=== PATIENT | male | born 2000 | race Caucasian/White ===

== ENCOUNTER 2025-04-10 07:03 | Emergency (ER) | payer OTHER, SELFPAY ==
--- OUTSIDE RECORDS SUMMARY | 2021-03-19 10:00 | XMS_ITS | Continuity of Care Document ---
Author Organization [facility] Address [address] [place] [address] Phone Care Team Providers Care Office Assistant Name Role Phone Des TAVAREZ, Manoj Unavailable Unavailable Procedures Procedure Date J&J Covid Administration J&J Covid Vaccination Advance Directives Directive Yes / No Effective Date File Name No Information Encounters Encounter Description Practice Location Reason(s) For Visit Diagnoses Date Provider Providers Copied on Encounter [facility], [address], [place], [id number], [place] tel:[phone] COVID [facility] No Information Des Blackburn. [address], [place], [id number], [place]. tel:[phone] Family History Family Member Type Diagnosis Age At Onset No Information Immunizations Vaccine Date Status Comments [place] COVID administered Source: New Im munization Record Payers Payer name Insurance type Covered republican ID Authoriza tion(s) COVID 19 HRSA Uninsured Test ing & Treatm CI [id number] Self Pay Cap 09 Social History Type Description Quantity Date Captured Comments Alcohol Use Details Unknown Caffeine Use Details Unknown Tobacco Use Status No Information Smoking Status No Information Sex Male Sexual Orientation Straight or heterosexual Gender Identity Male Chief Complaint And Reason For Visit No Information Reason For Referral Reason For Referral No Information History Of Present Illness Encounter Date Complaint History Of Prese nt Illness No Information Functional Status Date Functional Assessmen t No Information Instructions Date Instruction Additional Infor mation No Information Assessments Type Assessment Date No Information Patient Care Teams Name Effective Dates (start - stop) Status Members No Information
[2025-04-10 07:07] VITALS: BP 140/72; PULSE 85; TEMP 36.8; O2SAT 97; BMI 29.6
--- NOTE | 2025-04-10 07:11 | XR_ITS ---
[facility] [place] [id number] Patient Name: SHIRLEY BUENO MRN: [id number] date: 2000 Sex: M Assigned Patient Location: ED.MAIN Current Patient Location: ED.MAIN Accession/Order Number: [id number] Exam Date: 04/10/2025 07:51 Report Date: 04/10/2025 07:52 At the request of: CHANDA HARPER MD Procedure: XR hand RT min 3V RIGHT HAND - 3 views CLINICAL DATA: Hyperextension of the fifth finger yesterday. COMPARISON: None AP, lateral and oblique views were obtained. There is no evidence of fracture or dislocation. There are no significant soft tissue abnormalities. XR/XR hand RT min 3V IMPRESSION: NO ACUTE BONY INJURY. Impression dictated by: Mary Brown M.D. 04/10/2025 7:52 AM Dictation Location: [place] [address] Electronically authenticated by: [id number] Date: 04/10/2025 07:52
--- NOTE | 2025-04-10 07:14 | ED.GENADUL1 ---
HPI HPI - General Adult General Chief complaint: Extremity Injury, Upper Stated complaint: upper extremity injury - [facility] Time Seen by Provider: 04/10/25 07:10 Source: patient Mode of arrival: walk-in History of Present Illness HPI narrative: 25-year-old male presents for pain to his right fifth finger. 24 hours ago at work that finger was hyperextended. The other fingers do not hurt. He points between the M CP and PIP joints to indicate area of most pain. He is right-handed. It hurts more to move it. Related Data Home Medications ?Medication ?Instructions ?Recorded ?Confirmed No Known Home Medications 04/10/25 04/10/25 Allergies Allergy/AdvReac Type Severity Reaction Status Date / Time No Known Drug Allergies Allergy Verified 04/10/25 07:07 Opioid HPI Opioid Management Most Recent Opioid Data: Last Pain Scale 6 Today, 07:12 Review of Systems ROS Narrative A ten point review of systems is negative except as noted above. PFSH PFSH Social History Little interest or pleasure in doing things: not at all Feeling down, depressed, or hopeless: not at all Exam Narrative Exam Narrative: Nurses note and vital signs reviewed and patient is not hypoxic. General: The patient appears well and in no apparent distress. Patient is resting comfortably on cart. Skin: Warm, dry, no pallor noted. There is no rash noted. Head: Normocephalic, atraumatic Eye: Normal conjunctiva, no drainage Ears, Nose, Mouth, and Throat: oral mucosa is moist. Nares patent. Cardiovascular: Regular Rate and Rhythm Respiratory: Patient is in no distress, no accessory muscle use Back: non-tender GI: Soft and nontender Musculoskeletal: The right hand is examined. There is no obvious deformity or swelling or bruising. He has some tenderness in the right fifth finger proximally but all fingers have full range of motion. Neurological: Awake and alert Psychiatric: Cooperative Constitutional Vital Signs, click to edit/add: Last Vital Signs Temp 98.2 F 04/10/25 07:07 Pulse 85 04/10/25 07:07 Resp 16 04/10/25 07:07 BP 140/72 04/10/25 07:07 Pulse Ox 97 04/10/25 07:07 O2 Del Method Room Air 04/10/25 07:07 Course Vital Signs Vital signs: Vital Signs Temperature 98.2 F 04/10/25 07:07 Pulse Rate 85 04/10/25 07:07 Respiratory Rate 16 04/10/25 07:07 Blood Pressure 140/72 04/10/25 07:07 Pulse Oximetry 97 04/10/25 07:07 Oxygen Delivery Method Room Air 04/10/25 07:07 Temperature 98.2 F 04/10/25 07:07 Pulse Rate 85 04/10/25 07:07 Respiratory Rate 16 04/10/25 07:07 Blood Pressure 140/72 04/10/25 07:07 Pulse Oximetry 97 04/10/25 07:07 Oxygen Delivery Method Room Air 04/10/25 07:07 Medical Decision Making MDM Narrative Medical decision making narrative: X-ray per radiologist shows no acute findings. Splint applied, application checked by me and found to be appropriate, he is neurovascularly intact. Treatment diagnosis and follow-up were discussed with the patient. Differential Diagnosis Differential Diagnosis: Fracture, sprain Imaging Data Hand x-ray, right: Radiologist's impression: ITS Impressions Hand X-Ray 04/10/25 07:11 IMPRESSION: NO ACUTE BONY INJURY. Impression dictated by: Mary Brown M.D. 04/10/2025 7:52 AM Dictation Location: [place] [address] Electronically authenticated by: [id number] Y Date: 04/10/2025 07:52 Discharge Plan Discharge Chief Complaint: Extremity Injury, Upper Clinical Impression: Finger sprain Patient Disposition: Home, Self-Care Time of Disposition Decision: 08:03 Condition: Good Mode of Transportation: Private Vehicle Prescriptions / Home Meds: No Action No Known Home Medications Print Language: Bolivian Instructions: Finger Sprain (ED) Referrals: NANI LUJAN [Primary Care Provider, Family Practice] - 1 week
--- OUTSIDE RECORDS SUMMARY | 2025-04-10 07:14 | XMS_ITS | Continuity of Care Document ---
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 It does not include entries that were removed or entered in error. Problem Status Onset Date Problem Type Date of Resolution Comments Source Chest pain Active 5 Diagnosis 0048R-DEJUAN GONSALVES Anxiety Active 5 Diagnosis 0048R-DEJUAN GONSALVES Other problems related to life management difficulty Active 5 Diagnosis 0048C-LORETTA Gonsalves Other physical and mental strain related to work Active 5 Diagnosis 0048C-LORETTA Gonsalves Administrative reason for encounter Active 5 Diagnosis 0048R-DEJUAN GONSALVES Encounter for general adult medical examination without abnormal findings Active 5 Diagnosis 0048R-DEJUAN GONSALVES Other physical and mental strain related to work Active 5 Diagnosis 0048C-LORETTA Gonsalves Problems of adjustment to life-cycle transitions Active 5 Diagnosis 0048C-LORETTA Gonsalves Disease caused by 2019 novel coronavirus1 Active 4 Condition This problem was added by Discern Expert for positive COVID-19 lab test. Unknown Organization Chest pain Active Condition 0048C-LORETTA Gonsalves Dehydration Active Condition 0048C-LORETTA Gonsalves Follow up exam Active Condition 0048R-O PFORCES LORETTA GONSALVES Near syncope Active Condition 0048C-LORETTA Gonsalves Pneumonia Active Condition 0048A-LORETTA [place] Proteinuria Active Condition 0048C-LORETTA Gonsalves Other physical and mental strain related to work Active Condition 0048C-LORETTA Gonsalves Medications Combined list of outpatient medications from Department of Defense and Veterans Affairs facilities.Medications provided include 1) outpatient medications from the last 15 months, and 2) patient-reported medications. Medication Details Route Status Patient Instructions Prescription Expires Prescription Number Last Dispense Date Ordering Provider Order Date Order Qty Source acetaminoph en 500 mg oral tablet 2 tab(s), Oral, every 4 hr, PRN pain or fever, X 5 days, # 24 tab(s), 0 total refill(s ), Acute, 07/06/24 7:39:10 AM CDT, Pharmacy : [facility] Oral (given by mouth) Discont inued 07/06/2024 2023 24.0 0048R-O TIMMY COLLIER acetaminoph en 500 mg oral tablet 1 tab(s), Oral, every 4 hr, PRN pain or fever, X 5 days, # 18 tab(s), 0 total refill(s ), Acute, 06/19/24 9:29:00 AM CDT, Pharmacy : [facility] Oral (given by mouth) Complet ed 06/19/2024 4 2023 18.0 0048R-O TIMMY COLLIER Albuterol (Eqv-ProAir HFA) 90 mcg/inh inhalation aerosol 2 puff(s), Inhale, every 6 hr, # 8.5 g, 0 total refill(s ), [facility], Pharmacy : [facility] Inhala tion (breat he in) Discont inued 05/20/20242023 8.5 0048A-A NICOLLE Collier Augmentin 500 mg-125 mg oral tablet 1 tab(s), Oral, every 8 hr, X 10 days, # 30 tab(s), 0 total refill(s ), Acute, 05/20/24 10:30:10 AM CDT, Pharmacy : [facility] , Respirshaniqua herron, communit y pneumoni a (CAP) Oral (given by mouth) Discont inued 05/20/20242023 30.0 0048A-A Holli Collier Augmentin 875 mg-125 mg oral tablet 1 tab(s), Oral, every 12 hr, X 7 days, # 14 tab(s), 0 total refill(s ), Acute, 07/13/24 5:52:00 AM CDT, Pharmacy : [facility] , Respirat orherlinda, sinusiti s Oral (given by mouth) Complet ed 07/13/2024 4 2023 14.0 0048R-O PFORDAVID COLLIER Bactrim DS 800 mg-160 mg oral tablet 1 tab(s), Oral, BID, X 10 days, # 20 tab(s), 0 total refill(s ), Acute, 06/24/24 9:23:00 AM CDT, Pharmacy : [facility] , Skin/sof t tissue, abscess/ purulent Oral (given by mouth) Complet ed 06/24/2024 4 2023 20.0 0048R-O PFORCES LORETTA BUCKLEY COLLIER benzocaine- menthol 6 mg-10 mg mucous membrane lozenge 1 lozenge( s), Oral, every 2 hr, PRN sore throat, # 18 EA, 0 total refill(s ), [facility], Pharmacy : [facility] Oral (given by mouth) Discont inued 05/30/2024 4 2023 18.0 0048A-A NICOLLE Collier cetirizine 10 mg oral tablet 1 tab(s), Oral, Daily, PRN allergy symptoms , X 30 days, # 30 tab(s), 0 total refill(s ), Hard Stop, 07/03/24 9:49:26 AM CDT, Pharmacy : [facility] Oral (given by mouth) Complet ed 07/03/2024 4 2023 30.0 0048R-O PFORDAVID COLLIER cetirizine 10 mg oral tablet 1 tab(s), Oral, Daily, PRN allergy symptoms , # 30 tab(s), 0 total refill(s ), Maintena nce, Pharmacy : [facility] Oral (given by mouth) Discont inued 07/28/2024 4 2023 30.0 [facility] Chlorasepti c 6 mg-10 mg mucous membrane lozenge 1 lozenge( s), Oral, every 2 hr, # 18 EA, 0 total refill(s ), Maintena nce, Pharmacy : [facility] Oral (given by mouth) Discont inued 07/28/2024 4 2023 18.0 0048R-O TIMMY COLLIER cholecalcif bridgette 1250 mcg (50,000 intl units) oral capsule 1 cap(s), Oral, every week, # 13 cap(s), 0 total refill(s ), [facility], Pharmacy : [facility] Oral (given by mouth) Discont inued 07/28/20242023 13.0 0048A-A Holli Collier Claritin 10 mg oral tablet 1 tab(s), Oral, Daily, PRN allergy symptoms , # 30 tab(s), 0 total refill(s ), Jo alalexus, Pharmacy : [facility] Oral (given by mouth) Discont inued 06/05/2024 4 2023 30.0 0048C-A NICOLLE Collier fluticasone 50 mcg/inh nasal spray 50 mcg, Nostril- Both, BID, X 30 days, # 16 g, 0 total refill(s ), Acute, Pharmacy : [facility] Nostri l-Both (into the nose) Complet ed 06/23/2024 4 2023 16.0 0048C-A NICOLLE Collier ibuprofen 600 mg oral tablet 1 tab(s), Oral, every 8 hr, # 30 tab(s), 0 total refill(s ), [facility], Pharmacy : [facility] Oral (given by mouth) Discont inued 06/20/2024 4 2023 30.0 0048A-A Holli Collier ibuprofen 800 mg oral tablet 1 tab(s), Oral, every 8 hr, X 3 days, # 9 tab(s), 0 total refill(s ), Acute, 06/19/24 9:42:00 AM CDT, Other Reason (Rx) Oral (given by mouth) Complet ed 06/19/20242023 9.0 0048R-O TIMMY COLLIER ibuprofen 800 mg oral tablet 1 tab(s), Oral, every 8 hr, X 5 days, # 15 tab(s), 0 total refill(s ), Acute, 06/19/24 9:29:00 AM CDT, Pharmacy : [facility] Oral (given by mouth) Complet ed 06/19/2024 4 2023 15.0 0048R-O PFORCES LORETTA COLLIER MiraLax oral powder for reconstitut ion See Instruct ions, Dissolve and drink 1 capful (17g) of powder in 4 to 8 ounces of liquid once daily, # 510 g, 0 total refill(s ), [facility], Pharmacy : [facility] Discont inued 07/28/2024 2023 510.0 0048A-A NICOLLE Collier Mucinex D 60 mg-600 mg oral tablet, extended release 1 tab(s), Oral, BID, PRN cold symptoms , # 18 tab(s), 0 total refill(s ), [facility] : [facility] Oral (given by mouth) Discont inued 05/20/20242023 18.0 0048A-A NICOLLE Collier naproxen 500 mg oral tablet 1 tab(s), Oral, BID, X 10 days, # 20 tab(s), 0 total refill(s ), Acute, 06/30/24 6:54:00 AM CDT, Pharmacy : [facility] Oral (given by mouth) Complet ed 06/30/2024 4 2023 20.0 0048R-O TIMMY COLLIER predniSONE 20 mg oral tablet 1 tab(s), Oral, BID, X 5 days, # 10 tab(s), 0 total refill(s ), Acute, Pharmacy : [facility] Oral (given by mouth) Complet ed 07/11/2024 4 2023 10.0 0048R-O TIMMY COLLIER pseudoephed rine-guaife nesin 60 mg-600 mg oral tablet, extended release 1 tab(s), Oral, BID, PRN cold symptoms , X 5 days, # 10 tab(s), 0 total refill(s ), Acute, Pharmacy : [facility] Oral (given by mouth) Complet ed 06/25/2024 4 2023 10.0 0048R-O PFGLENNY COLLIER pseudoephed rine-guaife nesin 60 mg-600 mg oral tablet, extended release 1 tab(s), Oral, BID, PRN cold symptoms , X 7 days, # 14 tab(s), 0 total refill(s ), Acute, Pharmacy : [facility] Oral (given by mouth) Complet ed 07/13/2024 4 2023 14.0 0048R-O PFORCES LORETTA COLLIER pseudoephed rine-guaife nesin 60 mg-600 mg oral tablet, extended release 1 tab(s), Oral, BID, PRN cold symptoms , X 7 days, # 14 tab(s), 0 total refill(s ), Acute, Pharmacy : [facility] Oral (given by mouth) Discont inued 05/30/2024 4 2023 14.0 0048C-A NICOLLE Collier Tessalon Perles 100 mg oral capsule 1 cap(s), Oral, TID, PRN cough, X 7 days, # 20 cap(s), 0 total refill(s ), Acute, 07/13/24 5:53:00 AM CDT, Pharmacy : [facility] Oral (given by mouth) Complet ed 07/13/2024 4 2023 20.0 0048R-O PFORCES LORETTA COLLIER triamcinolo ne 0.1% topical cream 1 appl(s), Topical, BID, X 14 days, # 80 g, 0 total refill(s ), Acute, Pharmacy : [facility] Topica l (on the skin) Complet ed 06/28/2024 4 2023 80.0 0048R-O PFORCES LORETTA COLLIER Vanicream topical cream 1 appl(s), Topical, BID, PRN dry skin, # 453 g, 0 total refill(s ), [facility] Topica l (on the skin) Discont inued 07/06/2024 4 2023 453.0 0048R-O PFORCES LORETTA COLLIER Allergies, Adverse Reactions, Alerts Combined list of allergies from Department of Defense and Veterans Affairs facilities. It does not include entries that were removed or entered in error. Substance Category Reaction Severity Reaction type Status Date Reported Comments Source No Known Allergies Drug allergy (disorder) active 01/11/2020 Mike Velasquez [facility] Immunizations Combined list of available immunizations from the Department of Defense and Veterans Affairs facilities. Immunization Series Date Given Administered By Site Reaction Lot Number CVX Code Drug [employer] Status Comments Source influenza virus vaccine, inactivated 2023 SHAR patton, left (delt oid) [id number] Seqirus, A [employer] complet ed influenza virus vaccine, inactivat ed 07/13/24 Given 0048C-A NICOLLE Collier influenza, seasonal, injectable-pf 2023 [facility] [id number] complet ed Result Comment: Route: Unknown Manufactu rer: OTH (SEQ) 0048C-A NICOLLE Holli Collier varicella virus vaccine 2023 DONNAC.NEELA Arm, left upper [id number] S[employer] complet ed varicella virus vaccine 05/12/24 Given 0048A-A NICOLLE Collier tetanus, diphtheria, acellular pertu is 2023 DONNAC.NEELA patton, right (delt oid) [id number] 115 GlaxoSmithKli ne complet ed tetanus, diphtheri a, acellular pertussis 05/12/24 Given 0048A-A NICOLLE Collier poliovirus vaccine, inactivated 2023 DONNAC.NEELA patton right (delt oid) [id number] 10 sanofi pasteur complet ed polioviru s vaccine, inactivat ed 05/12/24 Given 0048A-A NICOLLE Collier meningococcal conjugate vaccine 2023 DONNAC.NEELA patton, right (delt oid) [id number] 136 GlaxoSmithKli ne complet ed meningoco ccal conjugate vaccine 05/12/24 Given 0048A-A NICOLLE Collier hepatitis B adult vaccine 2023 DONNAC.NEELA Suarez pooja, left (delt oid) [id number] 189 [employer] complet ed hepatitis B adult vaccine 05/12/24 Given 0048A-A NICOLLE Collier adenovirus vaccine, live 2023 DONNAC.NEELA [id number] 143 [employer] Monitor [employer] [facility] complet ed adenoviru s vaccine, live 05/12/24 Given 0048A-A NICOLLE Collier meningococcal oligosacchari de (MCV4O) 2023 [facility] [id number] 136 complet ed Result Comment: Route: Unknown Manufactu rer: OTH (SKB) 0048C-A NICOLLE Collier HepB-CpG 2023 RA[facility]ELVHAMILT ON-CRUMLIN [id number] 189 complet ed Result Comment: Route: Unknown Manufactu rer: OT (DVX) 0048C-A NICOLLE Collier hepatitis B vaccine, pediatric or pediatric/ado lescent dosage 1 2019 LORENA AN [id number] 08 SmithKline (SKB) complet ed hepatitis B vaccine, pediatric or pediatric /adolesce nt dosage DoD varicella virus vaccine 1 2019 LORENA AN [id number] 21 Merck (MSD) complet ed varicella virus vaccine DoD meningococcal polysaccharid e (groups A, C, Y and W-135) diphtheria toxoid conjugate vaccine (MCV4P) 1 2019 LORENA AN [id number] 114 Sanofi Pasteur (PMC) complet ed meningoco ccal polysacch aride (groups A, C, Y and W-135) diphtheri a toxoid conjugate vaccine (MCV4P) DoD tetanus toxoid, reduced diphtheria toxoid, and acellular pertu is vaccine, adsorbed 1 2019 LORENA AN [id number] 115 [employer]ListRunnerine (SKB) complet ed tetanus toxoid, reduced diphtheri a toxoid, and acellular pertussis vaccine, adsorbed DoD Adenovirus, type 4 and type 7, live, oral 1 2019 LORENA AN [id number] 8 143 Other (OTH) complet ed Adenoviru s, type 4 and type 7, live, oral DoD Influenza, injectable, quadrivalent, preservative free 1 2019 LORENA AN [id number] 150 Seqirus (SEQ) complet ed Influenza , injectabl e, quadrival ent, preservat fahad free DoD varicella virus vaccine 2019 [facility] [id number] 21 complet ed Result Comment: Route: Subcutane ous(SC) Manufactu rer: Merck (MSD) 8C-A NICOLLE Collier tetanus, diphtheria, acellular pertu is 2019 [facility] [id number] 115 complet ed Result Comment: Route: Intramusc ular(IM) Manufactu rer: SmithKlin e (SKB) 8C-A NICOLLE Collier meningococcal A,C,Y,W-135 (MCV4P) 2019 [facility] [id number] 114 complet ed Result Comment: Route: Intramusc ular(IM) Manufactu rer: Sanofi Pasteur (PMC) 8C-A NICOLLE Collier influenza, injectable, quadrivalent- pf 2019 [facility] [id number] 150 complet ed Result Comment: Route: Intramusc ular(IM) Manufactu rer: Seqirus (SEQ) 8C-A NICOLLE Collier hepatitis B pediatric/ado lescent 2019 [facility] [id number] 08 complet ed Result Comment: Route: Intramusc ular(IM) Manufactu rer: SmithKlin e (SKB) 8C-A NICOLLE Collier adenovirus vaccine, live 2019 [facility] [id number] 8 143 complet ed Result Comment: Unit: Unknown Route: Oral(PO) Manufactu rer: Other (OTH) Dorothy8C-A NICOLLE Collier Results Combined list of recent chemistry, hematology and other laboratory results from Department of Defense and Veterans Affairs, ranging from 15 months to all on record, depending upon the facility. Order Name Results Value Reference Range Date Interpretation Specimen Comments Source Hematolog y Platelets 183 10^3/uL 150 - [id number] 07/06 N 0048A-A NICOLLE Collier Hematolog y MPV 9.6 fL 7.4 - 10.6 07/06 N 0048A-A [facility] Hematolog y MCHC 33.1 g/dL 33.0 - 37.0 07/06 N 0048A-A Marcio [facility] Hematolog y MCH 30.5 pg 27.0 - 31.0 07/06 N 0048A-A [facility] Hematolog y RDW 14.30 07/06 0048A-A Marcio Collier Hematolog y RBC 4.81 10^6/uL 4.71 - 6.34868 07/06 N 0048A-A [facility] Hematolog y Hematocrit 44.3 % 42.0 - 52.0 07/06 N [facility]48[facility] Hem[facility] 14.7 g/dL 14.0 - 18.0 07/06 N 0048A-A [facility] Hematolog y MCV 92.2 fL 80.0 - 94.0 07/06 N 0048A-A [facility] Hematolog y WBC 5.8 10^3/uL 5.0 - 10.0103 07/06 N 0048A-A [facility] Chemistry Potassium Lvl 3.9 mmol/L 3.6 - 5.2 07/06 N 0048A-A [facility] Chemistry Chloride 104 mmol/L 98 - 107 07/06 N 0048A-A Marcio Collier Chemistry CO2 29 mmol/L 21 - 31 07/06 N 0048A-A [facility] Chemistry Glucose Lvl 86 mg/dL 74 - 109 07/06 N 0048A-A [facility] Chemistry BUN 12.6 mg/dL 7.0 - 25.0 07/06 N 0048A-A [facility] Chemistry Sodium 139 mmol/L 136 - 145 07/06 N 0048A-A [facility] Chemistry Creatinine Level 0.83 mg/dL 0.60 - 1.30 07/06 N 0048A-A [facility] Chemistry Calcium 10.0 mg/dL 8.6 - 12.2 07/06 N 0048A-A [facility] Chemistry ALT 11 U/L 7 - 52 07/06 N 0048A-A [facility] Chemistry AST 17 U/L 13 - 39 07/06 N 0048A-A [facility] Chemistry Bilirubin Total 3.0 mg/dL 0.3 - 1.0 07/06 H 0048A-A [facility] Chemistry Alk Phos 74 U/L 34 - 104 07/06 N 0048A-A [facility] Chemistry Albumin 4.8 g/dL 3.5 - 5.0 07/06 N 0048A-A [facility] Chemistry Protein Total 7.6 g/dL 6.4 - 8.9 07/06 N 0048A-A [facility] Chemistry Osmo Calc 277 mOsm/kg 278 - 305 07/06 L 8A-A [facility] Chemistry AGAP 6 mmol/L 2 - 15 07/06 N 0048A-A [facility] Chemistry eAvg Glucose 91 mg/dL 07/06 Interpretiv e Data: The estimated Average Glucose is an estimated average of the glucose level for the past 2-3 months. It is a calculation based on the hemoglobin A1C result and expressed in mg/dL 8A-A [facility] Chemistry Hemoglobin A1c 4.8 % 4.0 - 5.6 07/06 N Interpretiv e Data: Pre-Diabeti c: 5.7 6.4 Diabetic: 6.5 % ADA Target: <7.0% Action suggested: >7% -A e[facility] Chemistry Cholesterol Total 106 mg/dL 0 - 199 07/06 N Interpretiv e Data: Total Cholesterol Reference Ranges: Desirable: <200 mg/dL Borderline High: 200 239 mg/dL High: >240 mg/dL 8A-A [facility] Chemistry HDL Cholesterol 32.0 mg/dL 40.0 - 60.0 07/06 L 8A-A [facility] Chemistry LDL 74 mg/dL 0 - 129 07/06 N 0048A-A [facility] Chemistry Triglycerid es 69 mg/dL 0 - 199 07/06 N Interpretiv e Data: Normal: <150 mg/dL Borderline High: 150 199 mg/dL High: 200 - 499 mg/dL Very High: 500 mg/dL 0048A-A [facility] TSH 1.22 uIU/mL 0.45 - 5.33 07/06 N 0048A-A [facility] Chemistry Vitamin D 25 OH 26.3 ng/mL 07/06 L 0048A-A [facility] Chemistry CRP 0.3 mg/dL 07/06 N 0048A-A [facility] Chemistry CK Total 183 U/L 30 - 223 07/06 N 0048A-A [facility] Chemistry Amylase Lvl 16 U/L 29 - 103 07/06 L 0048A-A [facility] Chemistry Lipase Lvl 4 U/L 11 - 82 07/06 L 0048A-A [facility] Hematolog y Lymph Absolute 0.9 x10^3/mc L 1.2 - 3.4103 07/06 L 0048A-A [facility]- [facility] Hematolog y Crane Absolute 0.4 x10^3/mc L 07/06 0048A-A [facility] Hematolog y Neutro Absolute 4.4 x10^3/mc L 1.4 - 6.5103 07/06 N 0048A-A [facility] Hematolog y Eos Absolute 0.1 07/06 0048A-A [facility] Hematolog y Baso Absolute 0.0 10^3/uL 07/06 0048A-A [facility] Hematolog y Neutrophil % Auto 76.1 % 40.0 - 74.0 07/06 H 0048A-A [facility] Hematolog y Basophil % Auto 0.1 07/06 0048A-A [facility] Hematolog y Monocyte % Auto 7.3 % 3.4 - 9.0 07/06 N 0048A-A [facility] Hematolog y Lymphocyte % Auto 15.3 % 07/06 0048A-A [facility] Hematolog y Eosinophil % Auto 1.2 07/06 0048A-A [facility] Chemistry Magnesium Lvl 2.1 mg/dL 1.9 - 2.7 07/06 N [facility] eGFR CKD EPI 126 07/06 Interpretiv e Data: Estimated Glomerular Filtration Rate (eGFR) calculated using the 2020 Chronic Kidney Disease-Epi demiology (CKD-EPI) Collaborati on creatinine equation; units of measure are mL/min/1.73 m2. Results are only valid for adults ( 18 years) whose serum creatinine is in steady state. eGFR calculation s are not valid for patients with acute kidney injury and for patients on dialysis. C reatinine-b ased estimates of kidney function may also be inaccurate in patients with reduced creatinine generation due to decreased muscle mass (e.g., malnutritio n, severe hypoalbumin emia, sarcopenia, chronic neuromuscul ar disease, amputations , severe heart failure or liver disease) and in patients with increased creatinine generation due to increased muscle mass (e.g., muscle builders, anabolic steroids) or increased dietary intake. As drug clearance is proportiona l to total GFR and not GFR indexed to body surface area (BSA), in individuals with a BSA substantial ly different than 1.73 m2, drug dosing should be based the reported eGFRvalue de-indexed from BSA by multiplying by the individual s BSA and dividing by 1.73. CKD is diagnosed based on abnormaliti es of kidney structure or function, present for >3 months, with implication s for health and disease. CKD is classified and staged based on cause, eGFR and albuminuria (quantified as urine albumin to creatinine ratio). An eGFR >60 mL/min/1.73 m2 in the absence of increased urine albumin excretion or structural abnormaliti es does not represent CKD.eGFR (mL/min/1.7 3 m2) CKD stage Interpretat ion 90 G1 Normal 60-89 G2 Mild decrease 45-59 G3A Mild to moderate decrease 30-44 G3B Moderate to severe decrease 15-29 G4 Severe decrease <15 G5 Kidney failure 0048A-A NICOLLE Collier Urinalysi s UA Ketones Negative *NA* (07/03/24 12:47 PM) 07/03 0048A-A NICOLLE Collier Urinalysi s UA pH 6.0 (07/03/24 12:47 PM) 6.0 07/03 N 0048A-A NICOLLE Collier Urinalysi s UA Blood Negative (07/03/24 12:47 PM) Negative 07/03 N 0048A-A NICOLLE Collier Urinalysi s UA Bili Negative (07/03/24 12:47 PM) Negative 07/03 N 0048A-A NICOLLE [facility] Urinalysi s UA Urobilinoge n Negative (07/03/24 12:47 PM) Negative 07/03 N 0048A-A NICOLLE [facility] Urinalysi s UA Protein Negative (07/03/24 12:47 PM) Negative 07/03 N 0048A-A NICOLLE [facility] [place] Urinalysi s UA Glucose Negative (07/03/24 12:47 PM) Negative 07/03 N 0048A-A NICOLLE [facility] Urinalysi s UA Mucous Rare *ABN* (07/03/24 12:47 PM) 07/03 A 0048A-A NICOLLE [facility] [place] Ur[facility]ysi [facility] UA RBC NONE 07/03 0048A-A NICOLLE [facility] [place] Urinalysi s UA Epi Squam 1 07/03 0048A-A NICOLLE [facility] [place] Urinalysi s UA WBC <1 07/03 0048A-A NICOLLE Collier Urinalysi s UA Bacteria None Seen (07/03/24 12:47 PM) None Seen 07/03 N 0048A-A NICOLLE [facility] [place] Urinalysi s UA Nitrite Negative (07/03/24 12:47 PM) Negative 07/03 N 0048A-A NICOLLE [facility] [place] Urinalysi [facility] UA Spec [place] 1.004 1.001 - 1.034 07/03 N 0048A-A NICOLLE Collier Urinalysi s UA Color Colorles s (07/03/24 12:47 PM) Yellow 07/03 N 0048A-A NICOLLE [facility] [place] Urinalysi s UA Leuk Esterase Negative (07/03/24 12:47 PM) Negative 07/03 N 0048A-A NICOLLE [facility] [place] Urinalysi s UA Appear Clear (07/03/24 12:47 PM) Clear 07/03 N 0048A-A NICOLLE Collier Hematolog y Basophil % Auto 0.3 07/03 0048A-A NICOLLE [facility] [place] Hematolog y Neutro Absolute 3.2 x10^3/mc L 1.4 - 6.5103 07/03 N 0048A-A NICOLLE Collier Hematolog y Lymph Absolute 0.8 x10^3/mc L 1.2 - 3.4103 07/03 L 0048A-A NICOLLE Collier Hematolog y Neutrophil % Auto 71.1 % 40.0 - 74.0 07/03 N 0048A-A NICOLLE Collier Hematolog y Lymphocyte % Auto 18.8 % 07/03 0048A-A NICOLLE Collier Hematolog y Monocyte % Auto 8.8 % 3.4 - 9.0 07/03 N 0048A-A NICOLLE Collier Hematolog y Eosinophil % Auto 1.0 07/03 0048A-A NICOLLE Collier Hematolog y Crane Absolute 0.4 x10^3/mc L 07/03 0048A-A NICOLLE Collier Hematolog y Eos Absolute 0.0 07/03 0048A-A NICOLLE Collier Hematolog y Baso Absolute 0.0 10^3/uL 07/03 0048A-A NICOLLE Collier Chemistry eGFR CKD EPI 129 07/03 Interpretiv e Data: Estimated Glomerular Filtration Rate (eGFR) calculated using the 2020 Chronic Kidney Disease-Epi demiology (CKD-EPI) Collaborati on creatinine equation; units of measure are mL/min/1.73 m2. Results are only valid for adults ( 18 years) whose serum creatinine is in steady state. eGFR calculation s are not valid for patients with acute kidney injury and for patients on dialysis. C reatinine-b ased estimates of kidney function may also be inaccurate in patients with reduced creatinine generation due to decreased muscle mass (e.g., malnutritio n, severe hypoalbumin emia, sarcopenia, chronic neuromuscul ar disease, amputations , severe heart failure or liver disease) and in patients with increased creatinine generation due to increased muscle mass (e.g., muscle builders, anabolic steroids) or increased dietary intake. As drug clearance is proportiona l to total GFR and not GFR indexed to body surface area (BSA), in individuals with a BSA substantial ly different than 1.73 m2, drug dosing should be based the reported eGFRvalue de-indexed from BSA by multiplying by the individual s BSA and dividing by 1.73. CKD is diagnosed based on abnormaliti es of kidney structure or function, present for >3 months, with implication s for health and disease. CKD is classified and staged based on cause, eGFR and albuminuria (quantified as urine albumin to creatinine ratio). An eGFR >60 mL/min/1.73 m2 in the absence of increased urine albumin excretion or structural abnormaliti es does not represent CKD.eGFR (mL/min/1.7 3 m2) CKD stage Interpretat ion 90 G1 Normal 60-89 G2 Mild decrease 45-59 G3A Mild to moderate decrease 30-44 G3B Moderate to severe decrease 15-29 G4 Severe decrease <15 G5 Kidney failure 0048A-A [facility] Hematolog y Hematocrit 39.9 % 42.0 - 52.0 07/03 L [id number] 153 10^3/uL 150 - [id number] 07/03 N [id number][facility] MPV 9.3 fL 7.4 - 10.6 07/03 N [facility]48A[facility] MCHC 33.6 g/dL 33.0 - 37.0 07/03 N [facility]48A[facility] RDW 14.40 07/03 [facility] MCV 91.5 fL 80.0 - 94.0 07/03 N [facility]48A[facility] MCH 30.8 pg 27.0 - 31.0 07/03 N [facility]48A[facility] WBC 4.4 10^3/uL 5.0 - 10.0103 07/03 L 0048A-A [facility] RBC 4.36 10^6/uL 4.71 - 6.80604 07/03 L [facility]48A[facility] Hemoglobin 13.4 g/dL 14.0 - 18.0 07/03 L 0048A-A [facility] Chemistry Creatinine Level 0.77 mg/dL 0.60 - 1.30 07/03 N [facility] Calcium 9.3 mg/dL 8.6 - 12.2 07/03 N 0048A-A [facility] Chemistry Chloride 104 mmol/L 98 - 107 07/03 N 0048A-A [facility] Chemistry CO2 29 mmol/L 21 - 31 07/03 N 0048A-A [facility] Chemistry Sodium 138 mmol/L 136 - 145 07/03 N 0048A-A [facility] Chemistry Potassium Lvl 4.2 mmol/L 3.6 - 5.2 07/03 N 0048A-A [facility] Chemistry Glucose Lvl 88 mg/dL 74 - 109 07/03 N 0048A-A [facility] Chemistry BUN 13.2 mg/dL 7.0 - 25.0 07/03 N 0048A-A [facility] Chemistry AGAP 5 mmol/L 2 - 15 07/03 N 0048A-A [facility] Chemistry Osmo Calc 275 mOsm/kg 278 - 305 07/03 L 0048A-A [facility] Chemistry Protein Total 6.9 g/dL 6.4 - 8.9 07/03 N 0048A-A [facility] Chemistry Albumin 4.4 g/dL 3.5 - 5.0 07/03 N 0048A-A [facility] Chemistry Alk Phos 69 U/L 34 - 104 07/03 N 0048A-A [facility] Chemistry Bilirubin Total 1.5 mg/dL 0.3 - 1.0 07/03 H 0048A-A [facility] Chemistry AST 13 U/L 13 - 39 07/03 N 0048A-A [facility] Chemistry ALT 11 U/L 7 - 52 07/03 N 0048A-A [facility] Chemistry CK Total 73 U/L 30 - 223 07/03 N [facility]48A[facility]A [facility]A Glucose Neg (06/30/24 11:45 AM) 06/30 N 0048A[facility] UA Color Yellow (06/30/24 11:45 AM) 06/30 N [facility]48A[facility]A Bili Neg (06/30/24 11:45 AM) 06/30 N 0048A[facility] Blood Neg (06/30/24 11:45 AM) 06/30 N 0048A[facility] pH 6.0 06/30 0048A[facility]A Spec [place] 1.020 06/30 0048A[facility] Protein Neg (06/30/24 11:45 AM) 06/30 N 0048A[facility] Leuk Esterase Neg (06/30/24 11:45 AM) 06/30 N 0048A[facility] Ketones 3+ *ABN* (06/30/24 11:45 AM) 06/30 A [id number][facility] Nitrite Neg (06/30/24 11:45 AM) 06/30 N [id number][facility] Urobilinoge n Neg (06/30/24 11:45 AM) 06/30 N 0048A[facility] Appear Clear (06/30/24 11:45 AM) 06/30 N [id number][facility] Blood Negative (06/27/24 10:23 AM) 06/27 N 0048A[facility] pH 6.0 (06/27/24 10:23 AM) 06/27 N [id number][facility] Nitrite Negative (06/27/24 10:23 AM) 06/27 N [id number][facility] Ketones Moderate *NA* (06/27/24 10:23 AM) 06/27 0048A[facility] Protein 30 *ABN* (06/27/24 10:23 AM) 06/27 A [id number][facility] Urobilinoge n Negative (06/27/24 10:23 AM) 06/27 N [id number][facility] Bili Negative (06/27/24 10:23 AM) 06/27 N [id number][facility] Glucose Negative (06/27/24 10:23 AM) 06/27 N [facility]48A[facility] Mucous 2+ 06/27 [facility]48A[facility] Sperm Present *NA* (06/27/24 10:23 AM) 06/27 [facility]48[facility] Epi Squam 1 06/27 0048A[facility] WBC 1 06/27 0048A[facility] Bacteria None Seen (06/27/24 10:23 AM) 06/27 N [facility]48A[facility] Appear Clear (06/27/24 10:23 AM) 06/27 N 0048A[facility] Leuk Esterase Negative (06/27/24 10:23 AM) 06/27 N 0048A[facility]A Color Yellow (06/27/24 10:23 AM) 06/27 N 0048A[facility] UA Spec [place] >1.035 1.001 - 1.034 06/27 H 0048A[facility] RBC 2 06/27 [facility]48A[facility] Lymphocyte % Auto 21.1 % 06/27 0048A[facility]A [facility] Neutrophil % Auto 67.8 % 40.0 - 74.0 06/27 N 0048A[facility]A [facility] Baso Absolute 0.0 06/27 0048A[facility]A [facility] Eos Absolute 0.1 06/27 0048A[facility]A [facility] Crane Absolute 0.5 x10^3/mc L 06/27 [facility] Lymph Absolute 1.1 x10^3/mc L 1.2 - 3.4103 06/27 L 0048A-A [facility] Hematolog y Neutro Absolute 3.4 x10^3/mc L 1.4 - 6.5103 06/27 N 0048A-A [facility] Basophil % Auto 0.3 06/27 0048A-A [facility] Hematolog y Eosinophil % Auto 1.5 06/27 0048A-A [facility] Monocyte % Auto 9.3 % 3.4 - 9.0 06/27 H 0048A-A [facility] Chemistry CK Total 226 U/L 30 - 223 06/27 H 0048A-A [facility] Chemistry AGAP 8 mmol/L 2 - 15 06/27 N 0048A-A [facility] Chemistry Osmo Calc 277 mOsm/kg 278 - 305 06/27 L 0048A-A [facility] Chemistry Albumin 4.7 g/dL 3.5 - 5.0 06/27 N 0048A-A [facility] Chemistry Alk Phos 67 U/L 34 - 104 06/27 N 0048A-A [facility] Chemistry Protein Total 7.2 g/dL 6.4 - 8.9 06/27 N 0048A-A [facility] Chemistry AST 18 U/L 13 - 39 06/27 N 0048A-A [facility] Chemistry Bilirubin Total 2.6 mg/dL 0.3 - 1.0 06/27 H 0048A-A [facility] Chemistry Creatinine Level 0.80 mg/dL 0.60 - 1.30 06/27 N 0048A-A [facility] Chemistry ALT 15 U/L 7 - 52 06/27 N 0048A-A [facility] Chemistry Calcium 9.5 mg/dL 8.6 - 12.2 06/27 N 0048A-A [facility] Chemistry Chloride 103 mmol/L 98 - 107 06/27 N 0048A-A [facility] CO2 27 mmol/L 21 - 31 06/27 N 0048A-A [employer] [facility] Potassium Lvl 4.4 mmol/L 3.6 - 5.2 06/27 N [facility] Sodium 138 mmol/L 136 - 145 06/27 N [facility] BUN 18.3 mg/dL 7.0 - 25.0 06/27 N 0048A-A [employer] [facility] Glucose Lvl 92 mg/dL 74 - 109 06/27 N 0048A[facility]A [facility] MPV 8.9 fL 7.4 - 10.6 06/27 N 0048A[facility]A [facility] RDW 14.80 06/27 [facility]48A[facility]A [facility] MCHC 33.6 g/dL 33.0 - 37.0 06/27 N 0048A[facility]A [facility] Platelets 163 10^3/uL 150 - [id number] 06/27 N [facility]48A[facility]A [facility] RBC 4.41 10^6/uL 4.71 - 6.78901 06/27 L 0048A[facility]A [facility] Hematocrit 40.5 % 42.0 - 52.0 06/27 L 0048A[facility]A [facility] Hemoglobin 13.6 g/dL 14.0 - 18.0 06/27 L 0048A[facility]A [facility] MCH 30.9 pg 27.0 - 31.0 06/27 N 0048A[facility]A [facility] MCV 91.8 fL 80.0 - 94.0 06/27 N 0048A[facility]A [facility] WBC 5.0 10^3/uL 5.0 - 10.0103 06/27 N 0048A[facility]A [facility] Chemistry eGFR CKD EPI 128 06/27 Interpretiv e Data: Estimated Glomerular Filtration Rate (eGFR) calculated using the 2020 Chronic Kidney Disease-Epi demiology (CKD-EPI) Collaborati on creatinine equation; units of measure are mL/min/1.73 m2. Results are only valid for adults ( 18 years) whose serum creatinine is in steady state. eGFR calculation s are not valid for patients with acute kidney injury and for patients on dialysis. C reatinine-b ased estimates of kidney function may also be inaccurate in patients with reduced creatinine generation due to decreased muscle mass (e.g., malnutritio n, severe hypoalbumin emia, sarcopenia, chronic neuromuscul ar disease, amputations , severe heart failure or liver disease) and in patients with increased creatinine generation due to increased muscle mass (e.g., muscle builders, anabolic steroids) or increased dietary intake. As drug clearance is proportiona l to total GFR and not GFR indexed to body surface area (BSA), in individuals with a BSA substantial ly different than 1.73 m2, drug dosing should be based the reported eGFRvalue de-indexed from BSA by multiplying by the individual s BSA and dividing by 1.73. CKD is diagnosed based on abnormaliti es of kidney structure or function, present for >3 months, with implication s for health and disease. CKD is classified and staged based on cause, eGFR and albuminuria (quantified as urine albumin to creatinine ratio). An eGFR >60 mL/min/1.73 m2 in the absence of increased urine albumin excretion or structural abnormaliti es does not represent CKD.eGFR (mL/min/1.7 3 m2) CKD stage Interpretat ion 90 G1 Normal 60-89 G2 Mild decrease 45-59 G3A Mild to moderate decrease 30-44 G3B Moderate to severe decrease 15-29 G4 Severe decrease <15 G5 Kidney failure 0048A-A [facility]A Mucous 4+ 05/31 0048A-A [facility] UA Amorph Crystal Occasion al *ABN* (05/30/24 8:10 PM) None Seen 05/31 A 0048A-A [facility] UA Glucose Negative (05/30/24 8:10 PM) Negative 05/31 N 0048A-A [facility] UA Protein 30 *ABN* (05/30/24 8:10 PM) Negative 05/31 A 0048A-A [facility] UA Bili Negative (05/30/24 8:10 PM) Negative 05/31 N 0048A-A [facility] Urobilinoge n Negative (05/30/24 8:10 PM) Negative 05/31 N 0048A-A [facility] pH 6.0 (05/30/24 8:10 PM) 6.0 05/31 N 0048A-A [facility] Blood Negative (05/30/24 8:10 PM) Negative 05/31 N 0048A-A [facility]A Ketones Negative *NA* (05/30/24 8:10 PM) 05/31 0048A-A [facility]A Nitrite Negative (05/30/24 8:10 PM) Negative 05/31 N 0048A-A [facility]A Leuk Esterase Negative (05/30/24 8:10 PM) Negative 05/31 N 0048A-A [facility] Appear Ex. Turbid *ABN* (05/30/24 8:10 PM) Clear 05/31 A [id number]-A [facility] UA Spec [place] 1.033 1.001 - 1.034 05/31 N 0048A-A [facility]A Color Yellow (05/30/24 8:10 PM) Yellow 05/31 N 0048A-A [facility] RBC <1 05/31 0048A-A [facility] WBC 2 05/31 0048A[facility]A [facility] Bacteria None Seen (05/30/24 8:10 PM) None Seen 05/31 N 0048A-A [facility] Epi Squam 1 05/31 0048A-A [facility] Lymphocyte % Auto 16.6 % 05/30 0048A-A [facility] Neutrophil % Auto 71.4 % 40.0 - 74.0 05/30 N 0048A[facility]A [facility] Crane Absolute 0.6 x10^3/mc L 05/30 0048A[facility]A [facility] Baso Absolute 0.0 10^3/uL 05/30 0048A[facility]A [facility] Eos Absolute 0.1 05/30 0048A[facility]A [facility] Eosinophil % Auto 1.5 05/30 0048A[facility]A [facility] Monocyte % Auto 10.2 % 3.4 - 9.0 05/30 H 0048A-A [facility] Neutro Absolute 3.9 x10^3/mc L 1.4 - 6.5103 05/30 N 0048A-A [facility] Basophil % Auto 0.3 05/30 0048A[facility]A [facility] Lymph Absolute 0.9 x10^3/mc L 1.2 - 3.4103 05/30 L 0048A[facility]A [facility] eGFR CKD EPI 130 05/30 Interpretiv e Data: Estimated Glomerular Filtration Rate (eGFR) calculated using the 2020 Chronic Kidney Disease-Epi demiology (CKD-EPI) Collaborati on creatinine equation; units of measure are mL/min/1.73 m2. Results are only valid for adults ( 18 years) whose serum creatinine is in steady state. eGFR calculation s are not valid for patients with acute kidney injury and for patients on dialysis. C reatinine-b ased estimates of kidney function may also be inaccurate in patients with reduced creatinine generation due to decreased muscle mass (e.g., malnutritio n, severe hypoalbumin emia, sarcopenia, chronic neuromuscul ar disease, amputations , severe heart failure or liver disease) and in patients with increased creatinine generation due to increased muscle mass (e.g., muscle builders, anabolic steroids) or increased dietary intake. As drug clearance is proportiona l to total GFR and not GFR indexed to body surface area (BSA), in individuals with a BSA substantial ly different than 1.73 m2, drug dosing should be based the reported eGFRvalue de-indexed from BSA by multiplying by the individual s BSA and dividing by 1.73. CKD is diagnosed based on abnormaliti es of kidney structure or function, present for >3 months, with implication s for health and disease. CKD is classified and staged based on cause, eGFR and albuminuria (quantified as urine albumin to creatinine ratio). An eGFR >60 mL/min/1.73 m2 in the absence of increased urine albumin excretion or structural abnormaliti es does not represent CKD.eGFR (mL/min/1.7 3 m2) CKD stage Interpretat ion 90 G1 Normal 60-89 G2 Mild decrease 45-59 G3A Mild to moderate decrease 30-44 G3B Moderate to severe decrease 15-29 G4 Severe decrease <15 G5 Kidney failure 0048A-A [facility] MCV 92.2 fL 80.0 - 94.0 05/30 N [facility]48A-A [facility] MPV 9.2 fL 7.4 - 10.6 05/30 N 0048A-A [facility] Platelets 228 10^3/uL 150 - [id number] 05/30 N 0048A-A [facility] RDW 14.40 05/30 0048A[facility]A [facility] MCHC 32.8 g/dL 33.0 - 37.0 05/30 L 0048A-A [facility] MCH 30.2 pg 27.0 - 31.0 05/30 N 0048A[facility]A [facility] RBC 4.64 10^6/uL 4.71 - 6.89349 05/30 L 0048A-A [facility] WBC 5.4 10^3/uL 5.0 - 10.0103 05/30 N 0048A-A [facility] Hemoglobin 14.0 g/dL 14.0 - 18.0 05/30 N 0048A-A [facility] Hematocrit 42.8 % 42.0 - 52.0 05/30 N 0048A-A [facility] Chemistry Osmo Calc 277 mOsm/kg 278 - 305 05/30 L 0048A-A [facility] Chemistry AGAP 10 mmol/L 2 - 15 05/30 N 0048A-A [facility] Chemistry Albumin 4.8 g/dL 3.5 - 5.0 05/30 N 0048A-A [facility] Chemistry Protein Total 7.7 g/dL 6.4 - 8.9 05/30 N 0048A-A [facility] Chemistry Alk Phos 65 U/L 34 - 104 05/30 N 0048A-A [facility] Chemistry Sodium 140 mmol/L 136 - 145 05/30 N 0048A-A [facility] Chemistry Glucose Lvl 64 mg/dL 74 - 109 05/30 L 0048A-A [facility] Chemistry BUN 12.6 mg/dL 7.0 - 25.0 05/30 N 0048A-A [facility] Chemistry Calcium 9.7 mg/dL 8.6 - 12.2 05/30 N 0048A-A [facility] Chemistry Potassium Lvl 3.7 mmol/L 3.6 - 5.2 05/30 N 0048A-A [facility] Chemistry Chloride 104 mmol/L 98 - 107 05/30 N 0048A-A [facility] Chemistry CO2 26 mmol/L 21 - 31 05/30 N 0048A-A [facility] Chemistry Creatinine Level 0.76 mg/dL 0.60 - 1.30 05/30 N 0048A-A [facility] Chemistry Bilirubin Total 2.1 mg/dL 0.3 - 1.0 05/30 H 0048A-A [facility] Chemistry ALT 36 U/L 7 - 52 05/30 N 0048A-A [facility] Chemistry AST 29 U/L 13 - 39 05/30 N 0048A-A [facility] Chemistry Creatine Kinase Total.LC 440 U/L 49 - 439 05/30 H Result Comment: Performed At: [address] [id number] Rex Marquez MD Ph:[phone] 0048A-A [facility]A Glucose Negative (05/24/24 1:08 PM) 05/24 N 0048A-A [facility] UA pH 6.5 (05/24/24 1:08 PM) 05/24 N 0048A-A [facility] Blood Negative (05/24/24 1:08 PM) 05/24 N 0048A-A [facility] Bili Negative (05/24/24 1:08 PM) 05/24 N 0048A-A [facility]A Urobilinoge n 2 *ABN* (05/24/24 1:08 PM) 05/24 A 0048A[facility]A [facility] Protein Trace *ABN* (05/24/24 1:08 PM) 05/24 A 0048A-A [facility] Nitrite Negative (05/24/24 1:08 PM) 05/24 N 0048A-A [facility] Ketones Small *NA* (05/24/24 1:08 PM) 05/24 0048A-A [facility]A Appear Clear (05/24/24 1:08 PM) 05/24 N 0048A-A [facility]A Leuk Esterase Negative (05/24/24 1:08 PM) 05/24 N 0048A-A [facility]A WBC 2 05/24 0048A-A [facility]A Color Yellow (05/24/24 1:08 PM) 05/24 N 0048A-A [facility]A RBC 1 05/24 0048A[facility]A [facility] UA Spec [place] 1.029 1.001 - 1.034 05/24 N 0048A-A [facility]A Mucous 1+ 05/24 0048A-A [facility]A Bacteria None Seen (05/24/24 1:08 PM) 05/24 N 0048A-A [facility]A Epi Squam 1 05/24 0048A-A [facility] Baso Absolute 0.0 05/24 0048A-A [facility] Lymphocyte % Auto 22.8 % 05/24 0048A-A [facility] Neutrophil % Auto 66.0 % 40.0 - 74.0 05/24 N 0048A-A [facility] Basophil % Auto 0.2 05/24 0048A[facility]A [facility] Eosinophil % Auto 1.7 05/24 [facility] Monocyte % Auto 9.3 % 3.4 - 9.0 05/24 H 0048A-A [facility] Lymph Absolute 1.3 x10^3/mc L 1.2 - 3.4103 05/24 N 0048A-A [facility] Neutro Absolute 3.6 x10^3/mc L 1.4 - 6.5103 05/24 N 0048A-A [facility] Eos Absolute 0.1 05/24 0048A[facility] Crane Absolute 0.5 x10^3/mc L 05/24 0048A-A [facility] CK Total 3974 U/L 30 - 223 05/24 H 0048A[facility] WBC 5.5 10^3/uL 5.0 - 10.0103 05/24 N 0048A-A [facility] MCV 90.3 fL 80.0 - 94.0 05/24 N 0048A-A [facility] Hematocrit 41.8 % 42.0 - 52.0 05/24 L 0048A-A [facility] Hemoglobin 14.0 g/dL 14.0 - 18.0 05/24 N 0048A-A [facility] RBC 4.63 10^6/uL 4.71 - 6.65795 05/24 L 0048A-A [facility] MCH 30.4 pg 27.0 - 31.0 05/24 N 0048A-A [facility] RDW 13.60 05/24 0048A-A [facility] MCHC 33.6 g/dL 33.0 - 37.0 05/24 N 0048A-A [facility] Platelets 258 10^3/uL 150 - [id number] 05/24 N 0048A-A [facility] MPV 8.9 fL 7.4 - 10.6 05/24 N 0048A-A [facility] Chemistry Glucose Lvl 87 mg/dL 74 - 109 05/24 N 0048A-A [facility] Chemistry BUN 14.1 mg/dL 7.0 - 25.0 05/24 N 0048A-A [facility] Chemistry Sodium 138 mmol/L 136 - 145 05/24 N 0048A-A [facility] Chemistry Potassium Lvl 4.4 mmol/L 3.6 - 5.2 05/24 N 0048A-A [facility] Chemistry CO2 29 mmol/L 21 - 31 05/24 N 0048A-A [facility] Chemistry Chloride 102 mmol/L 98 - 107 05/24 N 0048A-A [facility] Chemistry Creatinine Level 0.83 mg/dL 0.60 - 1.30 05/24 N 0048A-A [facility] Chemistry ALT 76 U/L 7 - 52 05/24 H 0048A-A [facility] Chemistry Calcium 9.7 mg/dL 8.6 - 12.2 05/24 N 0048A-A [facility] Chemistry Bilirubin Total 1.9 mg/dL 0.3 - 1.0 05/24 H 0048A-A [facility] Chemistry AST 82 U/L 13 - 39 05/24 H 0048A-A [facility] Chemistry Alk Phos 50 U/L 34 - 104 05/24 N 0048A-A [facility] Chemistry Albumin 4.4 g/dL 3.5 - 5.0 05/24 N 0048A-A [facility] Chemistry Osmo Calc 276 mOsm/kg 278 - 305 05/24 L 0048A-A [facility] Chemistry Protein Total 7.4 g/dL 6.4 - 8.9 05/24 N 0048A-A [facility] Chemistry AGAP 7 mmol/L 2 - 15 05/24 N 0048A-A [facility] Chemistry eGFR CKD EPI 126 05/24 Interpretiv e Data: Estimated Glomerular Filtration Rate (eGFR) calculated using the 2020 Chronic Kidney Disease-Epi demiology (CKD-EPI) Collaborati on creatinine equation; units of measure are mL/min/1.73 m2. Results are only valid for adults ( 18 years) whose serum creatinine is in steady state. eGFR calculation s are not valid for patients with acute kidney injury and for patients on dialysis. C reatinine-b ased estimates of kidney function may also be inaccurate in patients with reduced creatinine generation due to decreased muscle mass (e.g., malnutritio n, severe hypoalbumin emia, sarcopenia, chronic neuromuscul ar disease, amputations , severe heart failure or liver disease) and in patients with increased creatinine generation due to increased muscle mass (e.g., muscle builders, anabolic steroids) or increased dietary intake. As drug clearance is proportiona l to total GFR and not GFR indexed to body surface area (BSA), in individuals with a BSA substantial ly different than 1.73 m2, drug dosing should be based the reported eGFRvalue de-indexed from BSA by multiplying by the individual s BSA and dividing by 1.73. CKD is diagnosed based on abnormaliti es of kidney structure or function, present for >3 months, with implication s for health and disease. CKD is classified and staged based on cause, eGFR and albuminuria (quantified as urine albumin to creatinine ratio). An eGFR >60 mL/min/1.73 m2 in the absence of increased urine albumin excretion or structural abnormaliti es does not represent CKD.eGFR (mL/min/1.7 3 m2) CKD stage Interpretat ion 90 G1 Normal 60-89 G2 Mild decrease 45-59 G3A Mild to moderate decrease 30-44 G3B Moderate to severe decrease 15-29 G4 Severe decrease <15 G5 Kidney failure 0048A-A [facility] Chemistry Lab Order(s) Added? Yes (05/23/24 11:17 AM) 05/23 N 0048A-A [facility] Chemistry Lab Orders to Add: Troponin I 05/23 [id number]-A [email or web address] Chemistry Lab Orders to Add: BNP 05/23 0048A-A [facility] Chemistry Lab Order(s) Added? Yes (05/23/24 11:17 AM) 05/23 N [id number] [email or web address] Chemistry eGFR CKD EPI 132 05/23 Interpretiv e Data: Estimated Glomerular Filtration Rate (eGFR) calculated using the 2020 Chronic Kidney Disease-Epi demiology (CKD-EPI) Collaborati on creatinine equation; units of measure are mL/min/1.73 m2. Results are only valid for adults ( 18 years) whose serum creatinine is in steady state. eGFR calculation s are not valid for patients with acute kidney injury and for patients on dialysis. C reatinine-b ased estimates of kidney function may also be inaccurate in patients with reduced creatinine generation due to decreased muscle mass (e.g., malnutritio n, severe hypoalbumin emia, sarcopenia, chronic neuromuscul ar disease, amputations , severe heart failure or liver disease) and in patients with increased creatinine generation due to increased muscle mass (e.g., muscle builders, anabolic steroids) or increased dietary intake. As drug clearance is proportiona l to total GFR and not GFR indexed to body surface area (BSA), in individuals with a BSA substantial ly different than 1.73 m2, drug dosing should be based the reported eGFRvalue de-indexed from BSA by multiplying by the individual s BSA and dividing by 1.73. CKD is diagnosed based on abnormaliti es of kidney structure or function, present for >3 months, with implication s for health and disease. CKD is classified and staged based on cause, eGFR and albuminuria (quantified as urine albumin to creatinine ratio). An eGFR >60 mL/min/1.73 m2 in the absence of increased urine albumin excretion or structural abnormaliti es does not represent CKD.eGFR (mL/min/1.7 3 m2) CKD stage Interpretat ion 90 G1 Normal 60-89 G2 Mild decrease 45-59 G3A Mild to moderate decrease 30-44 G3B Moderate to severe decrease 15-29 G4 Severe decrease <15 G5 Kidney failure [id number] [email or web address] Lymphocyte % Auto 16.0 % 05/23 [id number] [facility] Neutrophil % Auto 73.3 % 40.0 - 74.0 05/23 N [id number] [facility] Monocyte % Auto 9.4 % 3.4 - 9.0 05/23 H [id number] [facility] Basophil % Auto 0.2 05/23 [id number] [facility] Eosinophil % Auto 1.1 05/23 [id number] [facility] Lymph Absolute 0.9 x10^3/mc L 1.2 - 3.4103 05/23 L [id number] [facility] Neutro Absolute 4.2 x10^3/mc L 1.4 - 6.5103 05/23 N [id number] [facility] Crane Absolute 0.5 x10^3/mc L 05/23 [id number] [facility] Baso Absolute 0.0 05/23 [id number] [facility] Eos Absolute 0.1 05/23 [id number] [facility] Chemistry Troponin-I 4.30 ng/L 14.00 - 42.90 05/23 L [id number] [facility] Coagulati on D-Dimer (Quant) 2.52 ug/mLFEU 0.27 - 0.50 05/23 Result Comment: Critical result called to/read back by: Prema Caro Rank/Name: RN Location: Date/Time: 05/23/24 08:45:33 EDT Initials: JI Interpretiv e Data: D-Dimer (Quant) The reference cutoff range (<0.5 ug/mL FEU) is the same as the cutoff for the exclusion of DVT/PE. [id number] [facility] RBC 4.38 10^6/uL 4.71 - 6.38832 05/23 L [id number] [facility] Hemoglobin 13.4 g/dL 14.0 - 18.0 05/23 L 0048A-A [facility] WBC 5.7 10^3/uL 5.0 - 10.0103 05/23 N 0048A-[facility] MCH 30.5 pg 27.0 - 31.0 05/23 N 0048A[facility] MCV 89.1 fL 80.0 - 94.0 05/23 N 0048A-[facility] MCHC 34.2 g/dL 33.0 - 37.0 05/23 N 0048A[facility] Hematocrit 39.0 % 42.0 - 52.0 05/23 L 0048A[facility] RDW 13.50 05/23 0048[facility] MPV 8.6 fL 7.4 - 10.6 05/23 N 0048A[facility] Platelets 229 10^3/uL 150 - [id number] 05/23 N 0048A-A [facility] Chemistry Chloride 104 mmol/L 98 - 107 05/23 N 0048A-A [facility] Creatinine Level 0.71 mg/dL 0.60 - 1.30 05/23 N 0048A-A [facility] Calcium 9.3 mg/dL 8.6 - 12.2 05/23 N 0048A-A [facility] Chemistry Osmo Calc 274 mOsm/kg 278 - 305 05/23 L 0048A-A [facility] Chemistry AGAP 6 mmol/L 2 - 15 05/23 N 0048A-A [facility] Chemistry CO2 27 mmol/L 21 - 31 05/23 N 0048A-A [facility] Glucose Lvl 101 mg/dL 74 - 109 05/23 N 0048A-A [facility] BUN 13.1 mg/dL 7.0 - 25.0 05/23 N 0048A-A [facility] Sodium 137 mmol/L 136 - 145 05/23 N 0048A-A [facility] Potassium Lvl 4.4 mmol/L 3.6 - 5.2 05/23 N 0048A-A [facility] Chemistry Albumin 4.0 g/dL 3.5 - 5.0 05/23 N 0048A-A [facility] Chemistry Bilirubin Total 1.6 mg/dL 0.3 - 1.0 05/23 H 0048A-A [facility] Chemistry Alk Phos 47 U/L 34 - 104 05/23 N 0048A-A [facility] Chemistry ALT 88 U/L 7 - 52 05/23 H 0048A-A [facility] Chemistry AST 131 U/L 13 - 39 05/23 H 0048A-A [facility] Bilirubin Direct 0.27 mg/dL 0.00 - 0.30 05/23 N 0048A-A [facility] Chemistry Protein Total 6.9 g/dL 6.4 - 8.9 05/23 N 0048A-A [facility] Chemistry CK Total 8889 U/L 30 - 223 05/23 Result Comment: Result Cert@ 05/23/24 09:22:58 EDT (Time) by TREV MCGEE (Tech) Called and VRB by FABIANO URIBE ( design editor) @ 05/23/24 09:23:26 EDT (Time) 0048A-A [facility] Chemistry B-Type Natriuretic Peptide 23 pg/mL 05/23 N 0048A-A [facility] Chemistry Alk Phos 36 U/L 34 - 104 05/20 N 0048A-A [facility] Chemistry ALT 87 U/L 7 - 52 05/20 H 0048A-A [facility] Chemistry AST 157 U/L 13 - 39 05/20 H 0048A-A [facility] Chemistry Bilirubin Total 0.8 mg/dL 0.3 - 1.0 05/20 N 0048A-A [facility] Chemistry CO2 25 mmol/L 21 - 31 05/20 N 0048A-A [facility] Chemistry Creatinine Level 0.56 mg/dL 0.60 - 1.30 05/20 L 0048A-A [facility] Chemistry Calcium 8.3 mg/dL 8.6 - 12.2 05/20 L 0048A-A [facility] Chemistry Potassium Lvl 3.8 mmol/L 3.6 - 5.2 05/20 N 0048A-A [facility] Chemistry Chloride 107 mmol/L 98 - 107 05/20 N 0048A-A [facility] Chemistry Glucose Lvl 125 mg/dL 74 - 109 05/20 H 0048A-A [facility] Chemistry BUN 5.9 mg/dL 7.0 - 25.0 05/20 L 0048A-A [facility] Chemistry Sodium 138 mmol/L 136 - 145 05/20 N 0048A-A [facility] Chemistry Albumin 3.4 g/dL 3.5 - 5.0 05/20 L 0048A-A [facility] Chemistry Protein Total 5.9 g/dL 6.4 - 8.9 05/20 L 0048A-A [facility] Chemistry Osmo Calc 275 mOsm/kg 278 - 305 05/20 L 0048A-A [facility] Chemistry AGAP 6 mmol/L 2 - 15 05/20 N 0048A-A [facility] Chemistry [place] [id number] U/L 30 - 223 05/20 Result Comment: Critical result called to/read back by: Rank/Name:Bravo peng Primo Location:[facility] Date/Time:0 05/20/24 09:42:07 EDT Initials:rb 0048A-A [facility] Chemistry eGFR CKD EPI 142 05/20 Interpretiv e Data: Estimated Glomerular Filtration Rate (eGFR) calculated using the 2020 Chronic Kidney Disease-Epi demiology (CKD-EPI) Collaborati on creatinine equation; units of measure are mL/min/1.73 m2. Results are only valid for adults ( 18 years) whose serum creatinine is in steady state. eGFR calculation s are not valid for patients with acute kidney injury and for patients on dialysis. C reatinine-b ased estimates of kidney function may also be inaccurate in patients with reduced creatinine generation due to decreased muscle mass (e.g., malnutritio n, severe hypoalbumin emia, sarcopenia, chronic neuromuscul ar disease, amputations , severe heart failure or liver disease) and in patients with increased creatinine generation due to increased muscle mass (e.g., muscle builders, anabolic steroids) or increased dietary intake. As drug clearance is proportiona l to total GFR and not GFR indexed to body surface area (BSA), in individuals with a BSA substantial ly different than 1.73 m2, drug dosing should be based the reported eGFRvalue de-indexed from BSA by multiplying by the individual s BSA and dividing by 1.73. CKD is diagnosed based on abnormaliti es of kidney structure or function, present for >3 months, with implication s for health and disease. CKD is classified and staged based on cause, eGFR and albuminuria (quantified as urine albumin to creatinine ratio). An eGFR >60 mL/min/1.73 m2 in the absence of increased urine albumin excretion or structural abnormaliti es does not represent CKD.eGFR (mL/min/1.7 3 m2) CKD stage Interpretat ion 90 G1 Normal 60-89 G2 Mild decrease 45-59 G3A Mild to moderate decrease 30-44 G3B Moderate to severe decrease 15-29 G4 Severe decrease <15 G5 Kidney failure 0048A-A [facility] Chemistry Albumin 3.1 g/dL 3.5 - 5.0 05/20 L 0048A-A [facility] Chemistry Alk Phos 35 U/L 34 - 104 05/20 N 0048A-A [facility] Chemistry Osmo Calc 278 mOsm/kg 278 - 305 05/20 N 0048A-A [facility] Chemistry Protein Total 5.4 g/dL 6.4 - 8.9 05/20 L 0048A-A [facility] Chemistry Bilirubin Total 0.7 mg/dL 0.3 - 1.0 05/20 N 0048A-A [facility] Chemistry AGAP 5 mmol/L 2 - 15 05/20 N 0048A-A [facility] Chemistry BUN 7.9 mg/dL 7.0 - 25.0 05/20 N 0048A-A [facility] Chemistry Glucose Lvl 96 mg/dL 74 - 109 05/20 N 0048A-A [facility] Chemistry Potassium Lvl 3.7 mmol/L 3.6 - 5.2 05/20 N 0048A-A [facility] Chemistry Sodium 140 mmol/L 136 - 145 05/20 N 0048A-A [facility] Chemistry Chloride 110 mmol/L 98 - 107 05/20 H 0048A-A [facility] Chemistry Creatinine Level 0.64 mg/dL 0.60 - 1.30 05/20 N 0048A-A [facility] CO2 25 mmol/L 21 - 31 05/20 N 0048A-A [facility] Chemistry ALT 82 U/L 7 - 52 05/20 H 0048A-A [facility] Calcium 7.8 mg/dL 8.6 - 12.2 05/20 L 0048A-A [facility] AST 158 U/L 13 - 39 05/20 H 0048A-A [facility] MCH 30.7 pg 27.0 - 31.0 05/20 N 0048A-A [facility] MCHC 34.5 g/dL 33.0 - 37.0 05/20 N 0048A-A [facility] RDW 13.50 05/20 0048A-A [facility] RBC 3.78 10^6/uL 4.71 - 6.70489 05/20 L 0048A-A [facility] Hemoglobin 11.6 g/dL 14.0 - 18.0 05/20 L 0048A-A [facility] Hematocrit 33.6 % 42.0 - 52.0 05/20 L 0048A-A [facility] MCV 89.0 fL 80.0 - 94.0 05/20 N 0048A-A [facility] WBC 4.8 10^3/uL 5.0 - 10.0103 05/20 L 0048A-A [facility] MPV 8.9 fL 7.4 - 10.6 05/20 N 0048A-A [facility] Platelets 134 10^3/uL 150 - [id number] 05/20 L 0048A-A [facility] [place] [id number] U/L 30 - 223 05/20 Result Comment: Critical result verified by repeat analysis at 05/20/24 03:25:37 EDT. Result reported to and read back by RENATA BOSWELL at 05/20/24 03:27:06 EDT . 0048A-A [facility] eGFR CKD EPI 136 05/20 Interpretiv e Data: Estimated Glomerular Filtration Rate (eGFR) calculated using the 2020 Chronic Kidney Disease-Epi demiology (CKD-EPI) Collaborati on creatinine equation; units of measure are mL/min/1.73 m2. Results are only valid for adults ( 18 years) whose serum creatinine is in steady state. eGFR calculation s are not valid for patients with acute kidney injury and for patients on dialysis. C reatinine-b ased estimates of kidney function may also be inaccurate in patients with reduced creatinine generation due to decreased muscle mass (e.g., malnutritio n, severe hypoalbumin emia, sarcopenia, chronic neuromuscul ar disease, amputations , severe heart failure or liver disease) and in patients with increased creatinine generation due to increased muscle mass (e.g., muscle builders, anabolic steroids) or increased dietary intake. As drug clearance is proportiona l to total GFR and not GFR indexed to body surface area (BSA), in individuals with a BSA substantial ly different than 1.73 m2, drug dosing should be based the reported eGFRvalue de-indexed from BSA by multiplying by the individual s BSA and dividing by 1.73. CKD is diagnosed based on abnormaliti es of kidney structure or function, present for >3 months, with implication s for health and disease. CKD is classified and staged based on cause, eGFR and albuminuria (quantified as urine albumin to creatinine ratio). An eGFR >60 mL/min/1.73 m2 in the absence of increased urine albumin excretion or structural abnormaliti es does not represent CKD.eGFR (mL/min/1.7 3 m2) CKD stage Interpretat ion 90 G1 Normal 60-89 G2 Mild decrease 45-59 G3A Mild to moderate decrease 30-44 G3B Moderate to severe decrease 15-29 G4 Severe decrease <15 G5 Kidney failure 0048A-A [facility] Basophil % Auto 0.4 05/20 0048A-A [facility] Neutro Absolute 3.1 x10^3/mc L 1.4 - 6.5103 05/20 N 0048A-A [facility] Lymph Absolute 1.2 x10^3/mc L 1.2 - 3.4103 05/20 N 0048A-A [facility] Crane Absolute 0.4 x10^3/mc L 05/20 0048A-A [facility] Eosinophil % Auto 2.4 05/20 0048A-A [facility] Monocyte % Auto 7.4 % 3.4 - 9.0 05/20 N 0048A-A [facility] Neutrophil % Auto 65.3 % 40.0 - 74.0 05/20 N 0048A-A [facility] Lymphocyte % Auto 24.5 % 05/20 0048A-A [facility] Baso Absolute 0.0 10^3/uL 05/208A-A [facility] Eos Absolute 0.1 05/208A-A [facility] eGFR CKD EPI 135 05/20 Interpretiv e Data: Estimated Glomerular Filtration Rate (eGFR) calculated using the 2020 Chronic Kidney Disease-Epi demiology (CKD-EPI) Collaborati on creatinine equation; units of measure are mL/min/1.73 m2. Results are only valid for adults ( 18 years) whose serum creatinine is in steady state. eGFR calculation s are not valid for patients with acute kidney injury and for patients on dialysis. C reatinine-b ased estimates of kidney function may also be inaccurate in patients with reduced creatinine generation due to decreased muscle mass (e.g., malnutritio n, severe hypoalbumin emia, sarcopenia, chronic neuromuscul ar disease, amputations , severe heart failure or liver disease) and in patients with increased creatinine generation due to increased muscle mass (e.g., muscle builders, anabolic steroids) or increased dietary intake. As drug clearance is proportiona l to total GFR and not GFR indexed to body surface area (BSA), in individuals with a BSA substantial ly different than 1.73 m2, drug dosing should be based the reported eGFRvalue de-indexed from BSA by multiplying by the individual s BSA and dividing by 1.73. CKD is diagnosed based on abnormaliti es of kidney structure or function, present for >3 months, with implication s for health and disease. CKD is classified and staged based on cause, eGFR and albuminuria (quantified as urine albumin to creatinine ratio). An eGFR >60 mL/min/1.73 m2 in the absence of increased urine albumin excretion or structural abnormaliti es does not represent CKD.eGFR (mL/min/1.7 3 m2) CKD stage Interpretat ion 90 G1 Normal 60-89 G2 Mild decrease 45-59 G3A Mild to moderate decrease 30-44 G3B Moderate to severe decrease 15-29 G4 Severe decrease <15 G5 Kidney failure 0048A-A [facility] Chemistry AGAP 6 mmol/L 2 - 15 05/20 N 0048A-A [facility] Chemistry Osmo Calc 278 mOsm/kg 278 - 305 05/20 N 0048A-A [facility] Chemistry Bilirubin Total 0.7 mg/dL 0.3 - 1.0 05/20 N 0048A-A [facility] Chemistry Alk Phos 36 U/L 34 - 104 05/20 N 0048A-A [facility] Chemistry AST 176 U/L 13 - 39 05/20 H 0048A-A [facility] Chemistry Albumin 3.2 g/dL 3.5 - 5.0 05/20 L 0048A-A [facility] Chemistry Protein Total 5.5 g/dL 6.4 - 8.9 05/20 L 0048A-A [facility] Chemistry Chloride 110 mmol/L 98 - 107 05/20 H 0048A-A [facility] Chemistry CO2 24 mmol/L 21 - 31 05/20 N 0048A-A [facility] Chemistry ALT 84 U/L 7 - 52 05/20 H 0048A-A [facility] Chemistry Creatinine Level 0.66 mg/dL 0.60 - 1.30 05/20 N 0048A-A [facility] Chemistry Calcium 7.8 mg/dL 8.6 - 12.2 05/20 L 0048A-A [facility] Chemistry Glucose Lvl 101 mg/dL 74 - 109 05/20 N 0048A-A [facility] Chemistry Potassium Lvl 3.8 mmol/L 3.6 - 5.2 05/20 N 0048A-A [facility] Chemistry BUN 8.8 mg/dL 7.0 - 25.0 05/20 N 0048A-A [facility] Chemistry Sodium 140 mmol/L 136 - 145 05/20 N 0048A-A [facility] Chemistry [place] [id number] U/L 30 - 223 05/20 Result Comment: Result Cert@ 05/19/24 23:26:51 EDT (Time) by Gwen Doshi (Tech) Called and VRB by RENATA Rosa ( design editor) @ 05/19/24 23:26:38 EDT (Time) 0048A-A [facility] Chemistry Protein Total 5.8 g/dL 6.4 - 8.9 05/19 L 0048A-A [facility] Chemistry Osmo Calc 278 mOsm/kg 278 - 305 05/19 N 0048A-A [facility] Chemistry AGAP 6 mmol/L 2 - 15 05/19 N 0048A-A [facility] Chemistry BUN 9.2 mg/dL 7.0 - 25.0 05/19 N 0048A-A [facility] Chemistry Sodium 140 mmol/L 136 - 145 05/19 N 0048A-A [facility] Chemistry Potassium Lvl 3.6 mmol/L 3.6 - 5.2 05/19 N 0048A-A [facility] Chemistry Chloride 107 mmol/L 98 - 107 05/19 N 0048A-A [facility] Chemistry Glucose Lvl 99 mg/dL 74 - 109 05/19 N 0048A-A [facility] Chemistry CO2 27 mmol/L 21 - 31 05/19 N 0048A-A [facility] Chemistry Creatinine Level 0.62 mg/dL 0.60 - 1.30 05/19 N 0048A-A [facility] Chemistry Alk Phos 39 U/L 34 - 104 05/19 N 0048A-A [facility] Chemistry Albumin 3.3 g/dL 3.5 - 5.0 05/19 L 0048A-A [facility] Chemistry Calcium 8.1 mg/dL 8.6 - 12.2 05/19 L 0048A-A [facility] Chemistry ALT 89 U/L 7 - 52 05/19 H 0048A-A [facility] Chemistry Bilirubin Total 0.9 mg/dL 0.3 - 1.0 05/19 N 0048A-A [facility] Chemistry AST 199 U/L 13 - 39 05/19 H 0048A-A [facility] Chemistry [place] 00877 U/L 30 - 223 05/19 Result Comment: Critical result called to/read back by: Rank/Name:Ish AGUSTIN Location:[place] Date/Time:0 05/19/24 18:07:11 EDT Initials: YJH 0048A-A [facility] Chemistry eGFR CKD EPI 138 05/19 Interpretiv e Data: Estimated Glomerular Filtration Rate (eGFR) calculated using the 2020 Chronic Kidney Disease-Epi demiology (CKD-EPI) Collaborati on creatinine equation; units of measure are mL/min/1.73 m2. Results are only valid for adults ( 18 years) whose serum creatinine is in steady state. eGFR calculation s are not valid for patients with acute kidney injury and for patients on dialysis. C reatinine-b ased estimates of kidney function may also be inaccurate in patients with reduced creatinine generation due to decreased muscle mass (e.g., malnutritio n, severe hypoalbumin emia, sarcopenia, chronic neuromuscul ar disease, amputations , severe heart failure or liver disease) and in patients with increased creatinine generation due to increased muscle mass (e.g., muscle builders, anabolic steroids) or increased dietary intake. As drug clearance is proportiona l to total GFR and not GFR indexed to body surface area (BSA), in individuals with a BSA substantial ly different than 1.73 m2, drug dosing should be based the reported eGFRvalue de-indexed from BSA by multiplying by the individual s BSA and dividing by 1.73. CKD is diagnosed based on abnormaliti es of kidney structure or function, present for >3 months, with implication s for health and disease. CKD is classified and staged based on cause, eGFR and albuminuria (quantified as urine albumin to creatinine ratio). An eGFR >60 mL/min/1.73 m2 in the absence of increased urine albumin excretion or structural abnormaliti es does not represent CKD.eGFR (mL/min/1.7 3 m2) CKD stage Interpretat ion 90 G1 Normal 60-89 G2 Mild decrease 45-59 G3A Mild to moderate decrease 30-44 G3B Moderate to severe decrease 15-29 G4 Severe decrease <15 G5 Kidney failure 0048A-A [facility] Chemistry [place] [id number] U/L 30 - 223 05/19 Result Comment: Result Cert@ 05/19/24 14:04:57 EDT (Time) by TREV MCGEE (Tech) Called and VRB by EVERETT LEWIS ( design editor) @ 05/19/24 14:06:37 EDT (Time) 0048A-A [facility] Send[facility] Misc SO Result See Result Images 05/19 0048A-A [facility] Misc Specimen Type nasal swab 05/19 0048A-A [email or web address] Sendouts Requested Order? LC [id number] 05/19 0048A-A [facility] Magnesium Lvl 2.0 mg/dL 1.9 - 2.7 05/19 N 0048A-A [facility] Phosphorus 3.2 mg/dL 2.5 - 5.0 05/19 N 0048A-A [facility] Coagulati on INR 1.05 0.00 - 5.00 05/19 N 0048A-A [facility] PT 13.7 s 11.8 - 14.8 05/19 N 0048A-A [facility] PTT 35.6 s 23.2 - 37.2 05/19 N 0048A-A [facility] Bilirubin Indirect 1 mg/dL 0 - 1 05/19 N 0048A-A [facility] Bilirubin Direct 0.25 mg/dL 0.00 - 0.30 05/19 N 0048A-A [facility] Basophil % Auto 0.3 05/19 0048A-A [facility] Lymph Absolute 1.0 x10^3/mc L 1.2 - 3.4103 05/19 L 0048A-A [facility] Crane Absolute 0.4 x10^3/mc L 05/19 0048A-A [facility] Neutro Absolute 2.6 x10^3/mc L 1.4 - 6.5103 05/19 N 0048A-A [facility] Lymphocyte % Auto 25.3 % 05/19 0048A-A [facility] Monocyte % Auto 9.8 % 3.4 - 9.0 05/19 H 0048A-A [facility] Neutrophil % Auto 62.5 % 40.0 - 74.0 05/19 N 0048A-A [facility] Eosinophil % Auto 2.1 05/19 0048A-A [facility] Eos Absolute 0.1 05/19 0048A-A [facility] Baso Absolute 0.0 05/19 0048A-A [facility] WBC 4.1 10^3/uL 5.0 - 10.0103 05/19 L 0048A-A [facility] MCHC 35.4 g/dL 33.0 - 37.0 05/19 N 0048A-A [facility] RDW 13.50 05/19 0048A-A [facility] Platelets 127 10^3/uL 150 - [id number] 05/19 L 0048A-A [facility] MPV 9.3 fL 7.4 - 10.6 05/19 N 0048A-A [facility] Hemoglobin 11.5 g/dL 14.0 - 18.0 05/19 L 0048A-A [facility] Hematocrit 32.5 % 42.0 - 52.0 05/19 L 0048A-A [facility] RBC 3.67 10^6/uL 4.71 - 6.30669 05/19 L 0048A-A [facility] MCH 31.3 pg 27.0 - 31.0 05/19 H 0048A-A [facility] MCV 88.4 fL 80.0 - 94.0 05/19 N 0048A-A [facility] Chemistry Lactic Acid Plasma 0.7 mmol/L 0.5 - 2.2 05/19 N 0048A-A [facility] Infectiou s Disease Flu A Rapid Ag Negative (05/19/24 12:07 AM) 05/19 N 0048A-A [facility] Infectiou s Disease Flu B Rapid Ag Negative (05/19/24 12:07 AM) 05/19 N 0048A-A [facility] Molecular Infectiou s Disease Reason for Test? Diagnosi s (05/19/24 12:07 AM) 05/19 N 0048A-A [facility] Molecular Infectiou s Disease SARS-CoV-2 PCR Positive *ABN* (05/19/24 12:07 AM) 05/19 A 0048A-A [facility] Chemistry Procalciton in 0.29 ng/mL 05/19 N 0048A-A [facility] Chemistry Lab Orders to Add: procalci tonin 05/18 0048A-A [facility] Chemistry Lab Order(s) Added? Yes (05/18/24 2:40 PM) 05/18 N 0048A-A [facility] Chemistry Lab Orders to Add: ck 05/18 0048A-A [facility] Chemistry Lab Order(s) Added? Yes (05/18/24 1:09 PM) 05/18 N 0048A-A [facility] Chemistry Procalciton in 0.32 ng/mL 05/18 N 0048A-A [facility] Hematolog y MCH 30.2 pg 27.0 - 31.0 05/18 N 0048A-A [facility] Hematolog y MCHC 33.9 g/dL 33.0 - 37.0 05/18 N 0048A-A [facility] Hematolog y RDW 13.20 05/18 0048A-A [facility] Hematolog y Hematocrit 39.6 % 42.0 - 52.0 05/18 L 0048A-A [facility] Hematolog y MCV 88.9 fL 80.0 - 94.0 05/18 N 0048A-A [facility] MPV 9.4 fL 7.4 - 10.6 05/18 N 0048A-A [facility] Platelets 189 10^3/uL 150 - [id number] 05/18 N 0048A-A [facility] WBC 7.8 10^3/uL 5.0 - 10.0103 05/18 N 0048A-[facility] RBC 4.46 10^6/uL 4.71 - 6.95004 05/18 L 0048A-A [facility] Hemoglobin 13.4 g/dL 14.0 - 18.0 05/18 L 0048A-A [facility] Chemistry Lactic Acid Plasma 4.8 mmol/L 0.5 - 2.2 05/18 Result Comment: Result Cert@ 05/18/24 12:51:54 EDT (Time) by TREV MCGEE (Tech) Called and VRB by RENATA CHENG ( design editor) @ 05/18/24 12:52:09 EDT (Time) 0048A-A [facility] Neutro Absolute 5.9 x10^3/mc L 1.4 - 6.5103 05/18 N 0048A-A [facility] Basophil % Auto 0.2 05/18 0048A-A [facility] Crane Absolute 0.8 x10^3/mc L 05/18 0048A-A [facility] Lymph Absolute 1.1 x10^3/mc L 1.2 - 3.4103 05/18 L 0048A-A [facility] Eos Absolute 0.0 05/18 0048A-A [facility] Neutrophil % Auto 75.4 % 40.0 - 74.0 05/18 H 0048A-A [facility] Monocyte % Auto 10.5 % 3.4 - 9.0 05/18 H 0048A-A [facility] Lymphocyte % Auto 13.7 % 05/18 0048A-A [facility] Eosinophil % Auto 0.2 05/188A-A [facility] Baso Absolute 0.0 05/18[facility] ABO/Rh Type A POS 05/10 004[facility] Source of Test.LC Gen Force Test (05/10/24 11:59 AM) 05/10 N [facility] HIV-1/2 AG/AB 4G CDD LC NEGATIVE 05/10 Result Comment: Performed At: [facility] [id number] [place] [address] [address] [place] [address] DENISHA FLOYDN PHD Ph:[phone] 63 8A-A [facility] Sickle Cell Screen Negative (05/10/24 11:59 AM) 05/10 N 8A-A [facility]/Serolog y Hep B Surface Ab Non-Reac tive 14 (05/10/24 11:59 AM) 05/10 N Interpretiv e Data: Positive: 11.0 Negative: < 11.0 Normal reference range with Hepatitis B vaccine (Full Series): POSITIVE Normal reference range without Hepatitis B vaccine: NEGATIVE [facility]/Serolog y Rubella Ab Screen Positive U/mL 05/10 N Interpretiv e Data: Negative = Not Immune Positive = Immune [facility] Infectlubnau s Disease Rubeola IgG Positive (05/10/24 11:59 AM) 05/10 N 8A-A [facility]/Serolog y Mumps IgG Antibody Positive 30 (05/10/24 11:59 AM) 05/10 N Interpretiv e Data: NEGATIVE = NOT IMMUNE POSITIVE = IMMUNE EQUIVOCAL = BETWEEN THE CUTOFF FOR IMMUNITY A POSITIVE RESULT GENERALLY INDICATES PAST EXPOSURE TO MUMPS VIRUS OR PREVIOUS VACCINATION . 0048A-A [facility]/Serolog y VZV IgG Scrn Equivoca l 12 *ABN* (05/10/24 11:59 AM) 05/10 A Interpretiv e Data: NORMAL=NEGA TIVE FOR IGG ANTIBODIES POSITIVE=PO SITIVE FOR IGG ANTIBODIES EQUIVOCAL=P LEASE RESUBMIT NEW SPECIMEN WITHIN 2 WEEKS FOR FURTHER TESTING IF ACUTE INFECTION IS SUSPECTED PRESENCE OF IGG ANTIBODIES GENERALL INDICATES EXPOSURE TO THE PATHOGEN OR ADMINISTRAT ION OF SPECIFIC IMMUNOGLOBU LIZZETTE, BUT IT IS NOT AN INDICATION OF ACTIVE INFECTION OR STAGE OF DISEASE. 0048A-A [facility]/Serolog y Hep A Ab Positive 15 *ABN* (05/10/24 11:59 AM) 05/10 A Interpretiv e Data: Negative: 1.10 Positive: < 0.90 This test detects total antibodies to Hepatitis A and does not differentia te between IgG and IgM. Positive: Presence of detectible Antibodies indicates exposure or presumed immunity Negative: No detectible Antibodies: Patient not infected and is susceptible to HAV 0048A-A [facility] Vital Signs Combined list of inpatient and outpatient Vital Signs from [facility], ranging from 12 months to all on record, depending upon the facility. Vital Sign Value Date Comments Source Cuff Size Medium 05/20/2024 09:01:00 [id number] -LORETTA Gonsalves Blood Pressure Location Left arm 05/20/2024 09:01:00 [id number]-LORETTA Gonsalves Blood Pressure Method Automatic 05/20/2024 09:01:00 [id number]-LORETTA Gonsalves Heart Rate Monitored 72 bpm 05/20/2024 09:01:00 [id number]-[place] Blood Pressure Method Automatic 05/20/2024 05:37:00 [id number]-LORETTA Gonsalves Cuff Size Medium 05/20/2024 05:37:00 0048A -LORETTA Gonsalves Blood Pressure Location Left arm 05/20/2024 05:37:00 0048A-LORETTA Gonsalves Blood Pressure Manual Automatic 11/08/2024 12:53:00 0048R-KRISTANS LORETTA GONSALVES Temperature Oral 36.9 Ju 11/08/2024 12:53:00 0048R-OPFORCES LORETTA GONSALVES BP Site Left arm 11/08/2024 12:53:00 0048R -OPFORCES LORETTA BUCKLEY-VICTORIA Systolic Blood Pressure 104 mm[Hg] 11/08/2024 12:53:00 0048R-OPFORCES LORETTA BUCKLEY-VICTORIA Diastolic Blood Pressure 71 mm[Hg] 11/08/2024 12:53:00 0048R-EMILYFORCES LORETTA GONSALVES Peripheral Pulse Rate 73 bpm 11/08/2024 12:53:00 0048R-OPFORCES ACH MARCIO-COLLIER Respiratory Rate 16 br/min 11/08/2024 12:53:00 0048R-OPFORCES ACH MARCIO-COLLIER Mean Arterial Pressure, Calc 82 mm[Hg] 11/08/2024 12:53:00 0048R-OPFORC ES ACH MARCIO-COLLIER Heart Rate Monitored 68 bpm 05/20/2024 05:37:16 0048A-LORETTA Marcio-Collier Blood Pressure Method Automatic 05/20/2024 00:35:00 0048A-LORETTA Marcio-Collier Blood Pressure Location Left arm 05/20/2024 00:35:00 0048A-ACH Marcio-Collier Cuff Size Medium 05/20/2024 00:35:00 0048A -LORETTA Marcio-Collier Heart Rate Monitored 71 bpm 05/20/2024 00:35:00 0048A-LORETTA Marcio-Collier Blood Pressure Method Automatic 05/19/2024 11:10:00 0048A-LORETTA Marcio-Collier Blood Pressure Location Left arm 05/19/2024 11:10:00 0048A-LORETTA Buckley-Collier Cuff Size Medium 05/19/2024 11:10:00 0048A -LORETTA Buckley-Collier Blood Pressure Manual Automatic 07/06/2024 09:57:00 0048R-OPFORCES LORETTA BUCKLEY-COLLIER Mean Arterial Pressure, Calc 80 mm[Hg] 07/06/2024 09:57:00 0048R-OPFORC ES ACH MARCIO-COLLIER Systolic Blood Pressure 106 mm[Hg] 07/06/2024 09:57:00 0048R-OPFORCES ACH MARCIO-COLLIER Diastolic Blood Pressure 67 mm[Hg] 07/06/2024 09:57:00 0048R-OPFORCES ACH MARCIO-COLLIER Peripheral Pulse Rate 63 bpm 07/06/2024 09:57:00 0048R-OPFORCES ACH MARCIO-COLLIER Temperature Oral 36.4 Ju 07/06/2024 09:57:00 0048R-OPFORCES ACH MARCIO-COLLIER Respiratory Rate 16 br/min 07/06/2024 09:57:00 0048R-OPFORCES LORETTA MARCIO-COLLIER BP Site Right arm 07/06/2024 09:57:00 0048R -OPFORCES ACH MARCIO-COLLIER Cuff Size Medium 05/18/2024 19:30:00 0048A -LORETTA Gonsalves Blood Pressure Location Left arm 05/18/2024 19:30:00 0048A-LORETTA Gonsalves Blood Pressure Method Automatic 05/18/2024 19:30:00 0048A-LORETTA Gonsalves Heart Rate Monitored 68 bpm 05/23/2024 13:51:00 0048A-LORETTA Gonsalves Blood Pressure Manual Automatic 06/20/2024 11:33:00 0048R-OPFORCES LORETTA GONSALVES BP Site Right arm 06/20/2024 11:33:00 0048R -OPFORCES LORETTA GONSALVES Temperature Oral 36.5 Ju 06/20/2024 11:33:00 0048R-OPFORCES LORETTA GONSALVES Blood Pressure Method Automatic 05/19/2024 00:11:00 0048A-LORETTA Gonsalves Heart Rate Monitored 70 bpm 05/23/2024 11:49:00 0048A-LORETTA Gonsalves BP Site Left arm 08/22/2024 13:44:00 0048C -LORETTA Gonsalves Temperature Oral 37.2 Ju 08/22/2024 13:44:00 0048C-LORETTA Gonsalves Respiratory Rate 18 br/min 08/22/2024 13:44:00 0048C-LORETTA Gonsalves Blood Pressure Manual Automatic 08/22/2024 13:44:00 0048C-LORETTA Gonsalves Mean Arterial Pressure, Calc 71 mm[Hg] 08/22/2024 13:44:00 0048C-LORETTA Gonsalves Systolic Blood Pressure 95 mm[Hg] 08/22/2024 13:44:00 0048C-LORETTA Gonsalves Diastolic Blood Pressure 59 mm[Hg] 08/22/2024 13:44:00 0048C-LORETTA Gonsalves Peripheral Pulse Rate 58 bpm 08/22/2024 13:44:00 0048C-LORETTA Gonsalves Temperature Tympanic 36.6 Ju 06/30/2024 12:52:00 0048C-LORETTA Gonsalves BP Site Right arm 06/30/2024 12:52:00 0048C -LORETTA Gonsalves Blood Pressure Manual Automatic 06/30/2024 12:52:00 0048C-LORETTA Gonsalves Peripheral Pulse Rate 64 bpm 06/30/2024 12:52:00 0048C-ACH Marcio-Collier Respiratory Rate 14 br/min 06/30/2024 12:52:00 0048C-ACH Marcio-Collier Mean Arterial Pressure, Calc 85 mm[Hg] 06/30/2024 12:52:00 0048C-ACH Marcio-Collier Systolic Blood Pressure 112 mm[Hg] 06/30/2024 12:52:00 0048C-LORETTA Buckley-Collier Diastolic Blood Pressure 71 mm[Hg] 06/30/2024 12:52:00 0048C-ACH Brina Temperature Oral 36.7 Ju 08/02/2024 12:09:00 0048R-OPFORCES ACH MARCIO-COLLIER Respiratory Rate 16 br/min 08/02/2024 12:09:00 0048R-OPFORCES LORETTA BUCKLEY-COLLIER Systolic Blood Pressure 100 mm[Hg] 08/02/2024 12:09:00 0048R-OPFORCES LORETTA BUCKLEY-COLLIER Diastolic Blood Pressure 65 mm[Hg] 08/02/2024 12:09:00 0048R-OPFORCES LORETTA GONSALVES Peripheral Pulse Rate 66 bpm 08/02/2024 12:09:00 0048R-OPFORCES LORETTA GONSALVES Mean Arterial Pressure, Calc 77 mm[Hg] 08/02/2024 12:09:00 0048R-OPFORC ES LORETTA GONSALVES Heart Rate Monitored 70 bpm 05/19/2024 19:42:00 0048A-LORETTA Gonsalves Blood Pressure Method Automatic 05/19/2024 19:42:00 0048A-LORETTA Gonsalves Blood Pressure Location Left arm 05/19/2024 19:42:00 0048A-LORETTA Gonsalves Cuff Size Medium 05/19/2024 19:42:00 0048A -LORETTA Gonsalves Systolic Blood Pressure 104 mm[Hg] 07/03/2024 13:17:00 0048R-OPFORCES LORETTA GONSALVES Diastolic Blood Pressure 66 mm[Hg] 07/03/2024 13:17:00 0048R-OPFORCES LORETTA BUCKLEY-COLLIER Mean Arterial Pressure, Calc 79 mm[Hg] 07/03/2024 13:17:00 0048R-OPFORC ES LORETTA GONSALVES Respiratory Rate 16 br/min 07/03/2024 13:17:00 0048R-OPFORCES ACH BRINA Peripheral Pulse Rate 61 bpm 07/03/2024 13:17:00 0048R-OPFORCES LORETTA GONSALVES Temperature Oral 36.4 Ju 07/03/2024 13:17:00 0048R-EMILYFORCES LORETTA GONSALVES Blood Pressure Manual Automatic 07/03/2024 13:17:00 0048R-EMILYFORCES LORETTA GONSALVES BP Site Right arm 07/03/2024 13:17:00 0048R -EMILYFORCES LORETTA GONSALVES Systolic Blood Pressure 106 mm[Hg] 07/28/2024 11:14:00 0048A-LORETTA Gonsalves Diastolic Blood Pressure 65 mm[Hg] 07/28/2024 11:14:00 0048A-LORETTA Gonsalves Mean Arterial Pressure, Calc 79 mm[Hg] 07/28/2024 11:14:00 0048A-LORETTA Gonsalves Peripheral Pulse Rate 66 bpm 07/28/2024 11:14:00 0048A-LORETTA Gonsalves Respiratory Rate 18 br/min 07/28/2024 11:14:00 0048A-LORETTA Gonsalves Temperature Oral 36.5 Ju 07/28/2024 11:14:00 0048A-LORETTA Gonsalves Heart Rate Monitored 80 bpm 05/20/2024 15:42:40 0048A-LORETTA Gonsalves Blood Pressure Method Automatic 05/20/2024 11:50:00 0048A-LORETTA Gonsalves Blood Pressure Location Left arm 05/20/2024 11:50:00 0048A-LORETTA Gonsalves Heart Rate Monitored 78 bpm 05/20/2024 11:50:00 0048A-LORETTA Gonsalves Cuff Size Medium 05/20/2024 11:50:00 0048A -LORETTA Gonsalves Heart Rate Monitored 59 bpm 05/23/2024 17:01:00 0048A-LORETTA Gonsalves Systolic Blood Pressure 108 mm[Hg] 11/29/2024 12:54:00 0048R-KRISTANS LORETTA GONSALVES Diastolic Blood Pressure 69 mm[Hg] 11/29/2024 12:54:00 0048R-KRISTANS LORETTA GONSALVES Peripheral Pulse Rate 67 bpm 11/29/2024 12:54:00 0048R-DEJUAN GONSALVES Mean Arterial Pressure, Calc 82 mm[Hg] 11/29/2024 12:54:00 0048R-OPFORC ES ACH MARCIO-COLLIER Respiratory Rate 16 br/min 11/29/2024 12:54:00 0048R-OPFORCES ACH MARCIO-COLLIER Temperature Oral 36.8 Ju 11/29/2024 12:54:00 0048R-OPFORCES ACH MARCIO-COLLIER Blood Pressure Manual Automatic 11/29/2024 12:54:00 0048R-OPFORCES ACH MARCIO-COLLIER BP Site Right arm 11/29/2024 12:54:00 0048R -OPFORCES ACH MARCIO-COLLIER Respiratory Rate 16 br/min 10/23/2024 13:37:00 0048R-OPFORCES ACH MARCIO-COLLIER Peripheral Pulse Rate 94 bpm 10/23/2024 13:37:00 0048R-OPFORCES ACH MARCIO-COLLIER Systolic Blood Pressure 124 mm[Hg] 10/23/2024 13:37:00 0048R-OPFORCES ACH MARCIO-COLLIER Diastolic Blood Pressure 82 mm[Hg] 10/23/2024 13:37:00 0048R-OPFORCES [facility] BRINA Mean Arterial Pressure, Calc 96 mm[Hg] 10/23/2024 13:37:00 0048R-OPFORC ES ACH BRINA Temperature Oral 36.6 Ju 10/23/2024 13:37:00 0048R-OPFORCES LORETTA BUCKLEY-COLLIER Blood Pressure Manual Automatic 10/23/2024 13:37:00 0048R-OPFORCES LORETTA GONSALVES BP Site Right arm 10/23/2024 13:37:00 0048R -OPFORCES ACH MARCIO-COLLIER Mean Arterial Pressure, Monitor 76 mm[Hg] 05/20/2024 09:02:51 0048A-LORETTA Buckley-Collier Systolic Blood Pressure 101 mm[Hg] 06/27/2024 13:03:00 0048C-LORETTA Mracio-Collier Diastolic Blood Pressure 66 mm[Hg] 06/27/2024 13:03:00 0048C-LORETTA Marcio-Collier Mean Arterial Pressure, Calc 78 mm[Hg] 06/27/2024 13:03:00 0048C-LORETTA Marcio-Collier Peripheral Pulse Rate 76 bpm 06/27/2024 13:03:00 0048C-LORETTA Marcio-Collier Respiratory Rate 16 br/min 06/27/2024 13:03:00 0048C-ACH Marcio-Collier Temperature Tympanic 35.9 Ju 06/27/2024 13:03:00 0048C-ACH Marcio-Collier BP Site Right arm 06/27/2024 13:03:00 0048C -ACH Marcio-Collier Blood Pressure Manual Automatic 06/27/2024 13:03:00 0048C-ACH Marcio-Collier Cuff Size Medium 05/20/2024 15:42:00 0048A -ACH Marcio-Collier Blood Pressure Location Left arm 05/20/2024 15:42:00 0048A-ACH Marcio-Collier Blood Pressure Method Automatic 05/20/2024 15:42:00 0048A-ACH Marcio-Collier Temperature Oral 36.6 Ju 06/16/2024 13:02:00 0048R-OPFORCES ACH MARCIO-COLLIER BP Site Right arm 06/16/2024 13:02:00 0048R -OPFORCES ACH MARCIO-COLLIER Blood Pressure Manual Automatic 06/16/2024 13:02:00 0048R-OPFORCES ACH MARCIO-COLLIER Blood Pressure Location Left arm 05/19/2024 15:20:00 0048A-ACH Marcio-Collier Blood Pressure Method Automatic 05/19/2024 15:20:00 0048A-ACH Marcio-Collier Cuff Size Medium 05/19/2024 15:20:00 0048A -ACH Marcio-Collier Heart Rate Monitored 64 bpm 05/19/2024 15:20:00 0048A-ACH Marcio-Collier Encounters Combined list of: 1) Encounters from Department of Veterans Affairs facilities going backup to the last 18 months, not all VA inpatient encounters are included; 2) Encounters from the Department of Defense facilities going backup to 280 months. Location Location Details Encounter Type Encounter Number Reason For Visit Attending Provider ADM Date DC Date Status Disposition Source [facility](Au diology [facility] 1523) OUTPATIENT [id number] 2 DAMIR PEGUERO 12/24 Released w/o Limitations [facility]( Audiolo gy [facility] 1523) [facility](Op tometry [facility] 1523) OUTPATIENT [id number] EVON EPPS 12/24 Released w/o Limitations [facility]( Optomet ry [facility] 1523) [facility] Male) OUTPATIENT [id number] Notes Entered by: LUCERO DOUGLASLORENA P 26 Dec 2019 1001 ------- ------- ------- ------- -- P-4 Male Myriam ANLORENA P 12/25 Released w/o Limitations [facility]( [facility] Male) [facility](Co urage (White) 1007) OUTPATIENT [id number] Notes Entered by: ASHLEY WILKINSON 08 Jan 2020 0740 ------- ------- ------- ------- -- R WRIST PX MARY LOTT 01/07 Released with Work/Duty Limitations [facility]( Courage (White) 1007) [facility]( art Team 1007) OUTPATIENT [id number] 2 r wrist pain ALEE ANTHONY 01/07 Released with Work/Duty Limitations [facility]( Smart Team 1007) [facility](Co urage (White) 1007) OUTPATIENT [id number] Notes Entered by: BUDDY JOHNSON 11 Jan 2020 0827 ------- ------- ------- ------- -- WORSENI NG R WRIST PX MARY LOTT 01/10 Released with Work/Duty Limitations [facility]( Courage (White) 1007) [facility]( art Team 1007) OUTPATIENT [id number] 6 f/u ALEE ANTHONY 01/10 Released with Work/Duty Limitations [facility]( Smart Team 1007) [facility](Traci [facility]roquin[facility] Rehabilit ation Unit) OUTPATIENT [id number] Notes Entered by: ROMIE SANDY 12 Jan 2020 1258 ------- ------- ------- ------- -- atlCUCO [place] 01/11 Released with Work/Duty Limitations [facility]( Recruit Rehabil itation Unit) [facility]( art Team 1007) OUTPATIENT [id number] 0 request ing craig morrow f/u ALEE ANTHONY Alexus 01/14 Released with Work/Duty Limitations [facility]( Smart Team 1007) 0048C-[facility] Outpatient [id number] Problem s of adjustm ent to life-cy [place] transit ions HUGO ALEXANDER FLAQUITA 11/23 Discharge Disposition: Home or Self Care [facility] [phone] Other physica l and mental strain related to work Kellie NLetienne 11/23 Discharge Disposition: Home or Self Care 8C-A Holli Collier [id number] Encount er for general adult medical examina tion without abnorma l finding s,Encou nter for adminis trative examina tions, unspeci fied,Ch est pain, unspeci fied,An xiety disorde r, unspeci fied AMAZATRIPP 11/29 Discharge Disposition: Home or Self Care 0048R-O P[facility]CES [facility] 0048C-[facility] [phone] Other physica l and mental strain related to work Kellie NLemlane 12/01 Discharge Disposition: Home or Self Care [facility] [phone] Other problem s related to life managem ent difficu lty Kellie NLemke 12/04 Discharge Disposition: Home or Self Care 8C-A Marcio Victoria Procedures Combined list of: 1) Procedures from Department of Veterans Affairs facilities going back up to thelast 18 months, not all VA non-surgical procedures are included; 2) All procedures from the Department of Defense facilities. Procedure Procedure Type Code Date Perfomer Comments Sourc e THERAPEUTIC PROCEDURE(S), GROUP (2 OR MORE INDIVIDUALS) 01/12/20 [facility] PATIENT EDUCATION, NOT OTHERWISE CLASSIFIED, NON-PHYSICIAN PROVIDER, GROUP, PER SESSION 12/26/19 [facility] DETERMINATION OF REFRACTIVE STATE 12/25/19 [facility] AUDIOMETRIC TESTING OF GROUPS 12/25/19 [facility] Threshold Audiogram (Pure Tone) Threshold Audiogram (Pure Tone) [id number] DAMIR PEGUERO [facility] Audiometry Group Testing Audiometry Group Testing [id number] DAMIR PEGUERO [facility] Visual Function Screening Visual Function Screening 87638 EVON EPPS [facility] Spectacles Services Fitting Monofocals (Not For Aphakia) Spectacles Services Fitting Monofocals (Not For Aphakia) 86974 EVON EPPS [facility] Determination Of Refractive State Determination Of Refractive State 15353 EVON EPPS [facility] Patient education, not otherwise cla ified, non-physician provider, group, per se ion LORENA AN [facility] Physical Medicine - Group Physical Therapy Se ion Physical Medicine - Group Physical Therapy Session 04803 CUCO SANDY [facility] No data available for this section Ambulato ry Pharmacy Social History Combined list of available smoking, tobacco, and other social history from Department of Defense and Veterans Affairs facilities. Social History Type Response Date Comment [facility] e Sex Representation Male (finding) 10/26/2023 Un known Organization This section is an empty social history section. [facility] Tobacco Frequent/Daily exposure to secondhand smoke in indoor/confined spaces No. Cigarette use: Never-cigarette user. Other Tobacco use: Never-other tobacco user (not cigarettes). Ambulatory Pharmacy Sexual Orientation Ambula tory Pharmacy Gender identity Ambulator y Pharmacy Assessment and Plan Combined list of future care activities from Department of Defense and Veterans Affairs facilities (e.g., assessment and plan notes, appointments, orders, and referrals). Additional future care activities may be listed in the Plan of Care section. 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 LAUREN reports he arrived at [employer] on [id number] for BCT. LAUREN reports he has been a hold over and not training since [id number] due to chest pain. LAUREN also reports he refused to train. LAUREN completed his chapter separation physical on [id number]. 1. O ther physical and mental strain related to work Symptoms reported by LAUREN appear to be secondary to the current stress of being from his family and of being immersed in the [employer] culture. LAUREN is in a high stress environment accompanied by significant transition and current presenting symptoms will likely naturally resolve on their own over time. [1] SM presentation does not currently indicate primary DSM5 diagnosis. Prognosis: Fair Benefits, Risks, Alternatives Discussed: Yes Treatment Plan: Continue current medications, Encourage balanced diet, Exercise 4-5 times / week, Practice good sleep hygiene, Continue current psychotherapy Number of Visits Expected: 4-8 Target Symptoms: Anxiety Goals of Treatment: Improve overall functioning, Decrease in target symptoms Methods of Monitoring Outcomes: Reduced CSSRS score, Reduced CECI-7 score, Reduced PHQ-9 score Evaluation Type: By complexity Objectives of Treatment #1: Reduce overall frequency, intensity, and duration of the anxiety so that daily functioning is not impaired, enhances the ability to cope with the full variety of life’s anxieties effectively. Decrease GAD7 by 50%. Initial score 20, current score 20 Goals of Treatment #1: Other: I want to decrease my anxiety Interventions of Treatment #1: CBT Objective #1 Goal Status: Revised Objective #1 Start Date: 11/01/24 Objective #1 Review Date: 11/15/24 Objective #1 Anticipated Completion Date: 12/01/24 Objective #1 Date Met: 12/01/24 Objective #1 Comment: Although LAUREN's DP GAD7 indicates 20, this is incongruent with presentation and actual report of symptoms. Concern for over-reporting for perceived secondary gain as LAUREN has asked multiple times about applying for VA benefits Objectives of Treatment #2: Decrease feelings of hopelessness, increase self-esteem, increase healthy coping skills, return to previous highest level of functioning. Goal to decrease CSSRS to 0. Initial score with this provider was 1, current score 1 for mobid ideation, denies SI. Goals of Treatment #2: Decreased suicide risk factors Interventions of Treatment #2: CBT, Safety Planning Objective #2 Goal Status: Goal met Objective #2 Start Date: 11/01/24 Objective #2 Review Date: 11/15/24 Objective #2 Anticipated Completion Date: 11/23/24 Objective #2 Date Met: 11/23/24 Treatment Planning Requirements: 1) Developed treatment plan collaboratively with patient, with agreement on plan of care and goals, 2) Patient agrees to attend appointments, engage in treatment, discuss any concerns in order to meet treatment goals, 3) Provider will leverage patient strengths and limit potential barriers to treatment Extracted from:Title: Seperation Physical Author: SARAHY BONILLA UNIT AIDE, Family Medicine Date: 11/29/24 1. E ncounter for general adult medical examination without abnormal findings DD Form 2697 and 689 complete. Medically c leared for separation Counseled S M to avoid, drugs, alcohol and tobacco use. Counseled SM to maintain a healthy diet / low in sweets and high fat foods. Counseled SM on using seat belts / do not text and drive. Counseled SM on safe sex and STD prevention. Counseled SM to engage in physical activity at least one hour per day. SM verbalized understanding. 2. A dministrative reason for encounter see above. Portions of this encounter were generated with voice recognition software. T here may be typographical and/or grammatical inaccuracies in business process manager. 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 LAUREN reports he arrived at [facility] [employer] on 10MAY2024 for BCT. SM reports he has been a hold over and not training since 21JUL2024 due to chest pain. SM also reports he refused to train. SM is now pending a Chapter 11 separation. 1. O ther physical and mental strain related to work Symptoms reported by LAUREN appear to be secondary to the current stress of being from his family and of being immersed in the [employer] culture. LAUREN is in a high stress environment accompanied by significant transition and current presenting symptoms will likely naturally resolve on their own over time. [1] Prognosis: Fair Benefits, Risks, Alternatives Discussed: Yes Treatment Plan: Continue current medications, Encourage balanced diet, Exercise 4-5 times / week, Practice good sleep hygiene, Continue current psychotherapy Number of Visits Expected: 4-8 Target Symptoms: Anxiety Goals of Treatment: Improve overall functioning, Decrease in target symptoms Methods of Monitoring Outcomes: Reduced CSSRS score, Reduced CECI-7 score, Reduced PHQ-9 score Evaluation Type: By complexity Objectives of Treatment #1: Reduce overall frequency, intensity, and duration of the anxiety so that daily functioning is not impaired, enhances the ability to cope with the full variety of life’s anxieties effectively. Decrease GAD7 by 50%. Initial score 20, current score 20 Goals of Treatment #1: Other: I want to decrease my anxiety Interventions of Treatment #1: CBT Objective #1 Goal Status: Progressing, continue Objective #1 Start Date: 11/01/24 Objective #1 Review Date: 11/15/24 Objective #1 Anticipated Completion Date: 12/01/24 Objectives of Treatment #2: Decrease feelings of hopelessness, increase self-esteem, increase healthy coping skills, return to previous highest level of functioning. Goal to decrease CSSRS to 0. Initial score with this provider was 1, current score 0. Goals of Treatment #2: Decreased suicide risk factors Interventions of Treatment #2: CBT, Safety Planning Objective #2 Goal Status: Goal met Objective #2 Start Date: 11/01/24 Objective #2 Review Date: 11/15/24 Objective #2 Anticipated Completion Date: 11/23/24 Objective #2 Date Met: 11/23/24 Treatment Planning Requirements: 1) Developed treatment plan collaboratively with patient, with agreement on plan of care and goals, 2) Patient agrees to attend appointments, engage in treatment, discuss any concerns in order to meet treatment goals, 3) Provider will leverage patient strengths and limit potential barriers to treatment Extracted from:Title: [facility] *Psychiatrist OP Follow Up Note Author: HUGO ELIZABETH NP, Psychiatry Date: 11/23/24 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 SM reports [facility] on [facility]MAY2024 for BCT. SM reports he has been a hold over and not training since [id number] due to chest pain. SM also reports he refused to train. [2] Contacted CQ who was out at the range. Went to unit and no one was on CTA to verify medication dose. Discussed reducing to a half tab of the large white pill (which causes the eye pain) as a trial until Wednesday, O will follow up in foot print with trainee. He currently denies any SI.HI AVH. He attended group on thinking traps; homework given to assess for being stuck in a thinking trap when hallucinations/ self doubt present. [4] Problems of adjustment to life-cycle transitions Ordered: Comprehensive Metabolic Panel Prolactin Level Prognosis: Fair Benefits, Risks, Alternatives Discussed: Yes Benefits, Risks, SE Comments: Treatment plan will be completed by assigned provider. Today s encounter was a walk-in session. Treatment Plan: Continue current medications, Encourage balanced diet, Exercise 4-5 times / week, Practice good sleep hygiene, Continue current psychotherapy Number of Visits Expected: 4-8 Target Symptoms: Anxiety Goals of Treatment: Improve overall functioning, Decrease in target symptoms Evaluation Type: By complexity Objectives of Treatment #1: Reduce overall frequency, intensity, and duration of the anxiety so that daily functioning is not impaired, enhances the ability to cope with the full variety of life’s anxieties effectively. Decrease GAD7 by 50%. Initial score 20 Goals of Treatment #1: Other: I want to decrease my anxiety Interventions of Treatment #1: CBT Objective #1 Goal Status: Initial Objective #1 Start Date: 11/01/24 Objective #1 Review Date: 11/15/24 Objective #1 Anticipated Completion Date: 11/22/24 Objectives of Treatment #2: Decrease feelings of hopelessness, increase self-esteem, increase healthy coping skills, return to previous highest level of functioning. Decrease CSSRS to 0. Current score 1. SM verbally denies any history of suicide behaviors. Goals of Treatment #2: Decreased suicide risk factors Interventions of Treatment #2: CBT, Safety Planning Objective #2 Goal Status: Initial Objective #2 Start Date: 11/01/24 Objective #2 Review Date: 11/15/24 Objective #2 Anticipated Completion Date: 11/22/24 Treatment Planning Requirements: 1) Developed treatment plan collaboratively with patient, with agreement on plan of care and goals, 2) Patient agrees to attend appointments, engage in treatment, discuss any concerns in order to meet treatment goals, 3) Provider will leverage patient strengths and limit potential barriers to treatment Extracted from:Title: [facility] *Psychiatrist OP Follow Up Note Author: HUGO ELIZABETH NP, Psychiatry Date: 11/09/24 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 LAUREN reports he arrived at [facility] [employer] on 10MAY2024 for BCT. SM reports he has been a hold over and not training since 21JUL2024 due to chest pain. SM also reports he refused to train. [2] Contacted who was out at the range. Went to unit and no one was on CTA to verify medication dose. Discussed reducing to a half tab of the large white pill (which causes the eye pain) as a trial until Wednesday, O will follow up in foot print with trainee. He currently denies any SI.HI AVH. He attended group on thinking traps; homework given to assess for being stuck in a thinking trap when hallucinations/ self doubt present. Problems of adjustment to life-cycle transitions Prognosis: Fair Benefits, Risks, Alternatives Discussed: Yes Benefits, Risks, SE Comments: Treatment plan will be completed by assigned provider. Today s encounter was a walk-in session. Treatment Plan: Continue current medications, Encourage balanced diet, Exercise 4-5 times / week, Practice good sleep hygiene, Continue current psychotherapy Number of Visits Expected: 4-8 Target Symptoms: Anxiety Goals of Treatment: Improve overall functioning, Decrease in target symptoms Evaluation Type: By complexity Objectives of Treatment #1: Reduce overall frequency, intensity, and duration of the anxiety so that daily functioning is not impaired, enhances the ability to cope with the full variety of life’s anxieties effectively. Decrease GAD7 by 50%. Initial score 20 Goals of Treatment #1: Other: I want to decrease my anxiety Interventions of Treatment #1: CBT Objective #1 Goal Status: Initial Objective #1 Start Date: 11/01/24 Objective #1 Review Date: 11/15/24 Objective #1 Anticipated Completion Date: 11/22/24 Objectives of Treatment #2: Decrease feelings of hopelessness, increase self-esteem, increase healthy coping skills, return to previous highest level of functioning. Decrease CSSRS to 0. Current score 1. LAUREN verbally denies any history of suicide behaviors. Goals of Treatment #2: Decreased suicide risk factors Interventions of Treatment #2: CBT, Safety Planning Objective #2 Goal Status: Initial Objective #2 Start Date: 11/01/24 Objective #2 Review Date: 11/15/24 Objective #2 Anticipated Completion Date: 11/22/24 Treatment Planning Requirements: 1) Developed treatment plan collaboratively with patient, with agreement on plan of care and goals, 2) Patient agrees to attend appointments, engage in treatment, discuss any concerns in order to meet treatment goals, 3) Provider will leverage patient strengths and limit potential barriers to treatment Extracted from:Title: [facility] SHPP Intake Author: Kellie Coronado, G[employer] P[employer] MAN, Social Work Date: 11/01/24 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 LAUREN reports he arrived at [facility] [employer] on 10MAY2024 for BCT. LAUREN reports he has been a hold over and not training since 21JUL2024 due to chest pain. LAUREN also reports he refused to train. 1. O ther physical and mental strain related to work S ymptoms reported by LAUREN appear to be secondary to the current stress of being from his family and of being immersed in the [employer] culture. LAUREN is in a high stress environment accompanied by significant transition and current presenting symptoms will likely naturally resolve on their own over time. Prognosis: Fair Benefits, Risks, Alternatives Discussed: Yes Treatment Plan: Encourage balanced diet, Exercise 4-5 times / week, Practice good sleep hygiene, Continue current psychotherapy Number of Visits Expected: 4-8 Target Symptoms: Anxiety Evaluation Type: By complexity Objectives of Treatment #1: Reduce overall frequency, intensity, and duration of the anxiety so that daily functioning is not impaired, enhances the ability to cope with the full variety of life’s anxieties effectively. Decrease GAD7 by 50%. Initial score 20 Goals of Treatment #1: Other: I want to decrease my anxiety Interventions of Treatment #1: CBT Objective #1 Goal Status: Initial Objective #1 Start Date: 11/01/24 Objective #1 Review Date: 11/15/24 Objective #1 Anticipated Completion Date: 11/22/24 Objectives of Treatment #2: Decrease feelings of hopelessness, increase self-esteem, increase healthy coping skills, return to previous highest level of functioning. Decrease CSSRS to 0. Current score 1. SM verbally denies any history of suicide behaviors. Goals of Treatment #2: Decreased suicide risk factors Interventions of Treatment #2: CBT, Safety Planning Objective #2 Goal Status: Initial Objective #2 Start Date: 11/01/24 Objective #2 Review Date: 11/15/24 Objective #2 Anticipated Completion Date: 11/22/24 Treatment Planning Requirements: 1) Developed treatment plan collaboratively with patient, with agreement on plan of care and goals, 2) Patient agrees to attend appointments, engage in treatment, discuss any concerns in order to meet treatment goals, 3) Provider will leverage patient strengths and limit potential barriers to treatment Extracted from:Title: [facility] Walk-In #1 Author: LUCÍA AUSTIN Date: 10/23/24 SM is S michel/24 y rs. o ld/ / Male/[employer]/PVT-E2/Unit: D /RN: 420/MOS:25H/TIS: arrived at [place], [place] o n [id number]. SM is currently a holdover for recycle or separation. V62.89 (Z60.0) ?Phase of Life Problem sm is a hold over which has added stress to his current situation Benefits, Risks, SE Comments: Treatment plan will be completed by assigned provider. Today s encounter was a walk-in session. Extracted from:Title: F/U Er Author: SARAHY BONILLA NP, Family Medicine Date: 10/23/24 1. C hest pain P T reports was cleared from cardiology. Was seen over [facility] with civilian Cardio and advised that we need to collect records to add to medical records so that we can medically clear for RTD. Denies AWAD, chest pain, SHOB. Reports all symptoms have resolved and they believe to be cardio in nature. Advised to walk in with Ms. Garces at [place] to assist in getting records and for CM follow up. PT given packet to be able to request records. PT to report back to [facility] once records received. Patient agrees with plan and verbalized understanding 2. A nxiety P t to walk in to [facility] due to recent hospital encounter to discuss current concerns and as well discuss getting cleared to RTD. Reports they started him on medication, but he does not know the medication and that he never started it. Reports some anxiety b ut is feeling okay. He is optimistic about going to [facility] to recycle and continue with BCT. Portions of this encounter were generated with voice recognition software. T here may be typographical and/or grammatical inaccuracies in business process manager. Sarahy Bonilla CELL BIOLOGY SCIENTIST-C/AMNP CPT, AN B DE, [place] Surgeon [place], [place] Extracted from:Title: Admin-Cardio [facility] f/u Discussion Author: SARAHY BONILLA NP Date: 08/29/24 1. C hest pain Cardio APT note reviewed. Referral was placed. Will assist in scheduling outside APT and getting records faxed-Reached out to Ms. Garces at [facility] for assistance. PT to be notified when APT date and time scheduled. Discussed will do our best to get completed prior to HBL, but this may have to occur after. Denies any current headaches, chest pain, SHOB, or palpitations. ER precautions advised. Patient agrees with plan and verbalized understanding. Medications Reconcilled. Portions of this encounter were generated with voice recognition software. T here may be typographical and/or grammatical inaccuracies in business process manager. REINIER Arroyo-C/AMNP CPT, AN B [place], [place] Sur[place], [place] Extracted from:Title: [facility] Internal Medicine Consult - Chest Pain Author: FERNANDO ROMERO MD Date: 08/22/24 1. C hest pain Possibly c ardiac chest pain ( per ACC/AHA c hest pain guideline definition) w ith?clinically positive e xercise stress test. All other e valuation has been negative including CBC, resting EKG, n oncontrast CT, T TE, PFTs. Warrants further evaluation with m yocardial perfusion scan. Plan: -Referral for MPS placed - will be referred out to civilian facility, since [facility] does not have the capabilities currently -cc'ing r eferring provider f or their awareness -Present to ED if symptoms do not resolve or acutely worsen Fernando Romero MD Captain, [employer], [employer] Staff Psychiatrist and Law Firm Partner [place], [place] Extracted from:Title: 2-47 Admin Discussion Author: SARAHY BONILLA NP Date: 08/02/24 1. C hest pain on exertion Denies any chest pain or SHOB. He reports his condition as improved. Educated on cardio referral due to GXT. I am glad your symptoms have resolved but will be unable to complete CH 11 physical until you have your APT with cardiology and they medically clear you from any further evaluation or treatment. Pending cardio referral at [facility]. Once apt is scheduled will notify yourself as well as command team. Depending on how that APT goes we can either medically clear you for separation or you may be here a little longer until further evaluation has been completed. Patient agrees with plan and verbalized understanding. Patient's medications reviewed for polypharmacy, drug interactions, and drug allergies and are reconciliated at this time. Patient implied understanding of provider's instructions and agrees to comply with treatment plan. Portions of this encounter were generated with voice recognition software. T here may be typographical and/or grammatical inaccuracies in business process manager. Sarahy Bonilla, CELL BIOLOGY SCIENTIST-C/AMNP CPT, [address], 47 [place] BN Surgeon [place] Cantu Extracted from:Title: Cardio Referral Author: SARAHY BONILLA NP Date: 07/28/24 1. 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 Reported tingling to fingers when this occurs and feels SHOB. Trainee has no previous cardiac history, normal cardiopulmonary exam. PT hx of rhabdo and heat exhaustion end of April as well as pneumonia/covid mid May. SHOB has resolved but has continued with chest pain on exertion. Chest XR was completed with no findings, PFT was completed with normal findings. CT of chest completed 07/27/[address] resulted. Echocardiogram completed 07/26/24 with results showing normal echocardiographic study with no sonographic evidence of significant functional, structural, or valvular heart disease. PT completed GXT 07/26/24 with Overall Impression: Positive stress test suggestive of ischemia. Conclusion: Electrically negative, clinically positive test. DTS of 1 indicates moderate risk. Recommend further testing with MPS. Referral placed. PT aware when APT made will notify PT and command. Meds Reconciled. Patient agrees with plan and verbalized understanding. Ordered: Referral Request 2.0 - DoD 2. C ardiovascular stress test abnormal see above. Ordered: Referral Request 2.0 - DoD Portions of this encounter were generated with voice recognition software. T here may be typographical and/or grammatical inaccuracies in business process manager. Sarahy Bonilla CELL BIOLOGY SCIENTIST-C/AMNP CPT, AN [address] [place], [place] BN Surgeon KITTY Cantu Extracted from:Title: Admin Author: SARAHY BONILLA NP Date: 07/06/24 1. C hest pain on exertion Encounter for EKG only. please see previous note for full exam and note. Congestion of mucosa Encounter for EKG only. please see previous note for full exam and note. Cough Encounter for EKG only. please see previous note for full exam and note. Portions of this encounter were generated with voice recognition software. T here may be typographical and/or grammatical inaccuracies in business process manager. Sarahy Bonilla CELL BIOLOGY SCIENTIST-C/AMNP CPT, AN B DE, IN BN Surgeon K[place] Cantu Extracted from:Title: Near Syncope/Chest Pain on Exertion/Congestion Author: SARAHY BONILLA NP Date: 07/06/24 1. N ear syncope These events have been unwitnessed and denies telling the DS regarding the symptoms he was having.? Reports tingling to fingers when this occurs and feels SHOB. Trainee has no previous cardiac history, normal cardiopulmonary exam. PT hx of rhabdo and heat exhaustion end of April as well as pnemonia/covid mid May. He continued with SHOB with exertion and chest XR was completed with no findings, PFT was completed with normal findings as well. He reports he thought it was SHOB but he feels it is more the exhaustion and fatigue causing him to want to pass out. Would like to get cardiac stress test to rule out any cardiovascular involvement. EKG completed 06/30/24 showing NSR and no concerns. CBC, CMP, CK, Amylase, Lipase, TSH ordered with no immediate concerning findings. Pt does have low vit d. will have trainee follow up and vit d started. P atient agrees with plan and verbalized understanding. Patient's medications reviewed for polypharmacy, drug interactions, and drug allergies and are reconciliated at this time. Patient implied understanding of provider's instructions and agrees to comply with treatment plan. 2. C hest pain on exertion Pain in chest/heart every heartbeat concerns x1 day. LAUREN was seen previously 1 week ago for lethargy when exercising and discussion of a profile. LAUREN was set up a GXT a ppointment and requested to F/U if he has not heard any information in regards to the appointment. LAUREN states he has not and is also visiting sick call due to chest/heart pain every heartbeat as he states. 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 Symptoms include heart/chest pain every heartbeat and r andom n umbness in fingers. Fast movement, cardio provokes chest pain. Quality of pain is stabbing. Pain does not radiate, stays at chest area where heart is located. 6/10 pain. LAUREN has not attempted any sort of self-treatment for his symptoms. SM feels that his overall condition i s getting worse. Rate wnl Intervals wnl rhythm sinus SQ no elevation or depression No axis deviation -CBC, CMP, CK, Amylase, Lipase, TSH ordered with no immediate concerning findings. -Will move forward with cardiac stress test at this time. Denies any cardiac history and this is the first time he has brought up symptoms. -Placed on no training profile at this time. 689 given and company aware. Once APT scheduled will contact company and trainee. ER precautions advised for worsening symptoms or generalized feeling that something is not right. 3. C ongestion of mucosa Due to ongoing cough/congestion with new onset of fatigue and f/u chest XR still unremarkable will move forward with Chest CT without contrast at this time. Order placed. Once schedule will notify of APT date and time. See Referral order comments. ER precautions advised. Patient agrees with plan and verbalized understanding. 4. C ough see above. Portions of this encounter were generated with voice recognition software. T here may be typographical and/or grammatical inaccuracies in business process manager. MANNY ArroyoP-C/MAX CPT, AN [address] [place], [place] BN Surgeon [place] Cantu Extracted from:Title: Near Syncope/Fatigue Author: SARAHY BONILLA NP Date: 07/03/24 1. N ear syncope Reports that he has not had any LOC, but any time he exerts himself too much physically he gets really tired. He was not working out prior to coming to [facility] and we did discuss that if he is out of shape and then coming here with the physical exertion demands along with the heat this is going to cause him to fatigue easily. Discussed weight loss and how this can be beneficial, but also time to get his body into better shape. He has been a heat causality before so this is going to increase his change of having another one. Had PFT testing completed and results came back normal. Discussed that this most likely is not cardiac in nature but would be best to get a cardiac stress test to ensure this is not contributing. Will also repeat labs today as well for review. Consult submitted- Will reach out to Ms. Garces to assist with scheduling assistance. 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 Reports tingling to fingers when this occurs and feels SHOB. Trainee has no previous cardiac history, normal cardiopulmonary exam. PT hx of rhabdo and heat exhaustion end of April as well as pneumonia/covid mid May. He continued with SHOB with exertion and chest XR was completed with no findings, PFT was completed with normal findings as well. He reports he thought it was SHOB but he feels it is more the exhaustion and fatigue causing him to want to pass out. Would like to get cardiac stress test to rule out any cardiovascular involvement. EKG completed 06/30/24 showing NSR and no concerns. Please complete Cardiac Stress test. Er precautions advised. Follow up in one week if not heard about GXT APT. Patient's medications reviewed for polypharmacy, drug interactions, and drug allergies and are reconciliated at this time. Patient implied understanding of provider's instructions and agrees to comply with treatment plan. Patient agrees with plan and verbalized understanding. Ordered: CBC w/ Diff Comprehensive Metabolic Panel Creatine Kinase Urinalysis with Microscopic and Culture if Indicated 2. F atigue see above. Orders: *Differential Automated *Glomerular Filtration Rate, Estimated Portions of this encounter were generated with voice recognition software. T here may be typographical and/or grammatical inaccuracies in business process manager. Sarahy Bonilla, CELL BIOLOGY SCIENTIST-C/AMNP CPT, [address] [place], 2-47 IN BN Surgeon KITTY Cantu Extracted from:Title: Follow up Near syncope-[facility] Author: SUZETTE JENNINGS PA Date: 06/30/24 1. N ear syncope VS stable. Neuro intact. Lung exam clear. No evidence of heat exhaustion/rhabdomyolysis. EKG pending official read by Dr. Ekta bragg nd CXR unremarkable. Will place e profile today for no physical training, 3 copies given to . PFT's results reviewed today; normal spirometry. Will consider further cardiac work up. Meds reconciled. Stay hydrated. ER precautions given. RTC/BN aid station Wednesday. verbalizes understanding of these specific instructions. 2. E ncounter for follow-up examination after completed treatment for conditions other than malignant neoplasm Repeat UA with resolved proteinuria. Results reviewed with and all questions have been answered. SM verbalizes understanding. Suzette Purvis [place], [place] Extracted from:Title: [facility] TRIAGE NOTE #1 Author: JEREL MIRANDA Date: 05/22/24 This appointment is not deployment related. SM is Active, a S michel 24 - year-old male with?0 c hildren. 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 SM TIS is?2 weeks. 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 Suicidal Thoughts Patient developed more complaints about his mental health each day during his visit. What started as depression and anxiety culminated in thoughts of wanting to harm himseld by day of discharge. Psychiatry evaluated patient determined him not to be safety risk to himself or others at this time, and safe for outpatient f/u at [facility] Wednesday at 8:30AM. He has no mental health history. 2. H eat I njury M et criteria for heat illness by e levated core temperature to 102.5F after ice sheets, normal mental status w/o LOC, and evidence of end-organ effects to liver (modest elevations in bili and LFTs). Lactic acidosis was present at time of admission also that shortly resolved after fluids.?Attributable in part to his COVID+ status, reported dehydration, and lack of AC in barracks. Patient responded well to IVF and by day 2 was transitioned to PO intake. He d isplayed nearly 4L of urine output his second day, and continued to make large amounts of urine on day of discharge. His liver enzymes remained mildly elevated but stable, never displaying any abnormalities in coags. He i s safe f or discharge with outpatient f/u at [facility] for repeat labs 3. R habdomyolysis C K 16,823 on presentation with myalgias in upper and lower extremities. No KRIS at time of admission. N o signs of compartment syndrome. H is CK remained elevated his second day but was downtrending x 3 in a row on q6h labs by time of discharge. Safe for dc with close outpatient f/u at [facility] 4. U pper respiratory infection caused by COVID-19 Patient's 1 week respiratory symptoms, were attributed to COVID-19 this stay. Prior to differentiating his illness he received 1 dose of Rocephin. H e was negative for flu, h ad an X R without focal or diffuse consolidations, clear lungs on exam, and d id not develop a significant leukocytosis this stay. He required no supplemental oxygen either. Patient is safe for discharge with 5 days of quarters and an additional 5 days of wearing a mask. -Tessalon Perles -Ibuprofen 5. Dental caries Patient complained of frontal maxillary tooth pain this stay. Noted to have cavities. Recommend f/u with dentist outpatient 6.External Hemorrhoid Patient symptomatic for hemorrhoids this stay. A 1cm external hemorrhoid was noted on physical exam. He was started on Miralax BID and experienced relief with this treatment. On day of discharge endorsed having painless BM. -Miralax BID Plan of care was discussed with and approved by attending physician, Dr. Giancarlo Reardon MD [facility], Family Medicine PGY-2 I attest to the accuracy of this note as to history, physical examination, and medical decision-making with any exceptions or corrections noted. I independently performed or re-performed the physical examination on the date of the encounter. Mary Anthony MD [facility], , [employer] Physician Scribe, PGY-3 [facility] Addendum by JUAN J MONDRAGON DO on May 20, 2024 13:49:02 EDT I have reviewed the above note, performed an exam myself on the patient above, discussed plan of care with the inpatient team and the house staff and agree with the note as written above with the following addition: patient was awake alert and denied SI/SH at time of discharge and has outpatient follow-up scheduled to meet with behavioral health on Wednesday. Profile placed for heat injury and to follow-up with [facility]. ---- Signed/written by: Juan J Mondragon DO, PRAFUL [facility], [facility] Primary Care Sports Medicine [place] Extracted from:Title: Education Note Author: JUAN MIGUEL KOENIG Date: 03/14/24 Extracted from:Title: Education Note Author: JUAN MIGUEL KOENIG Date: 02/25/24 Diagnostic Tests PendingDNA Repository Sample DVRDNA [id number] 05/10/24 Future Scheduled TestsLaboratoryProlactin Level 11/23/24Hemoglobin A1c 11/23/24Comprehensive Metabolic Panel 11/23/24 04/10/2025 [id number]-[facility] [place] [facility] and [facility] Extracted from:Title : BEH SHPP Follow-Up #2 Author: Kellie Coronado, GARB[employer] PICK UP MAN, Social Work Date: 12/01/24 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 LAUREN reports he arrived at [facility] [employer] on 10MAY2024 for BCT. LAUREN reports he has been a hold over and not training since 21JUL2024 due to chest pain. LAUREN also reports he refused to train. LAUREN completed his chapter separation physical on 29NOV2024. 1. O ther physical and mental strain related to work Symptoms reported by LAUREN appear to be secondary to the current stress of being from his family and of being immersed in the [employer] culture. LAUREN is in a high stress environment accompanied by significant transition and current presenting symptoms will likely naturally resolve on their own over time. [1] SM presentation does not currently indicate primary DSM5 diagnosis. Prognosis: Fair Benefits, Risks, Alternatives Discussed: Yes Treatment Plan: Continue current medications, Encourage balanced diet, Exercise 4-5 times / week, Practice good sleep hygiene, Continue current psychotherapy Number of Visits Expected: 4-8 Target Symptoms: Anxiety Goals of Treatment: Improve overall functioning, Decrease in target symptoms Methods of Monitoring Outcomes: Reduced CSSRS score, Reduced CECI-7 score, Reduced PHQ-9 score Evaluation Type: By complexity Objectives of Treatment #1: Reduce overall frequency, intensity, and duration of the anxiety so that daily functioning is not impaired, enhances the ability to cope with the full variety of life’s anxieties effectively. Decrease GAD7 by 50%. Initial score 20, current score 20 Goals of Treatment #1: Other: I want to decrease my anxiety Interventions of Treatment #1: CBT Objective #1 Goal Status: Revised Objective #1 Start Date: 11/01/24 Objective #1 Review Date: 11/15/24 Objective #1 Anticipated Completion Date: 12/01/24 Objective #1 Date Met: 12/01/24 Objective #1 Comment: Although 's DP GAD7 indicates 20, this is incongruent with presentation and actual report of symptoms. Concern for over-reporting for perceived secondary gain as has asked multiple times about applying for VA benefits Objectives of Treatment #2: Decrease feelings of hopelessness, increase self-esteem, increase healthy coping skills, return to previous highest level of functioning. Goal to decrease CSSRS to 0. Initial score with this provider was 1, current score 1 for mobid ideation, denies SI. Goals of Treatment #2: Decreased suicide risk factors Interventions of Treatment #2: CBT, Safety Planning Objective #2 Goal Status: Goal met Objective #2 Start Date: 11/01/24 Objective #2 Review Date: 11/15/24 Objective #2 Anticipated Completion Date: 11/23/24 Objective #2 Date Met: 11/23/24 Treatment Planning Requirements: 1) Developed treatment plan collaboratively with patient, with agreement on plan of care and goals, 2) Patient agrees to attend appointments, engage in treatment, discuss any concerns in order to meet treatment goals, 3) Provider will leverage patient strengths and limit potential barriers to treatment Extracted from:Title: 2-47 Seperation Physical Author: SARAHY BONILLA NP, Family Medicine Date: 11/29/24 1. E ncounter for general adult medical examination without abnormal findings DD Form 2697 and 689 complete. Medically c leared for separation Counseled S M to avoid, drugs, alcohol and tobacco use. Counseled SM to maintain a healthy diet / low in sweets and high fat foods. Counseled SM on using seat belts / do not text and drive. Counseled SM on safe sex and STD prevention. Counseled SM to engage in physical activity at least one hour per day. SM verbalized understanding. 2. A dministrative reason for encounter see above. Portions of this encounter were generated with voice recognition software. T here may be typographical and/or grammatical inaccuracies in business process manager. Sarahy Bonilla, CELL BIOLOGY SCIENTIST-C/AMNP CPT, [address], 2-47 IN BN Surgeon Patty [place] Extracted from:Title: BEH [facility] 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 LAUREN reports he arrived at [facility] [employer] on 10MAY2024 for BCT. LAUREN reports he has been a hold over and not training since 21JUL2024 due to chest pain. SM also reports he refused to train. LAUREN is now pending a Chapter 11 separation. 1. O ther physical and mental strain related to work Symptoms reported by LAUREN appear to be secondary to the current stress of being from his family and of being immersed in the [employer] culture. LAUREN is in a high stress environment accompanied by significant transition and current presenting symptoms will likely naturally resolve on their own over time. [1] Prognosis: Fair Benefits, Risks, Alternatives Discussed: Yes Treatment Plan: Continue current medications, Encourage balanced diet, Exercise 4-5 times / week, Practice good sleep hygiene, Continue current psychotherapy Number of Visits Expected: 4-8 Target Symptoms: Anxiety Goals of Treatment: Improve overall functioning, Decrease in target symptoms Methods of Monitoring Outcomes: Reduced CSSRS score, Reduced CECI-7 score, Reduced PHQ-9 score Evaluation Type: By complexity Objectives of Treatment #1: Reduce overall frequency, intensity, and duration of the anxiety so that daily functioning is not impaired, enhances the ability to cope with the full variety of life’s anxieties effectively. Decrease GAD7 by 50%. Initial score 20, current score 20 Goals of Treatment #1: Other: I want to decrease my anxiety Interventions of Treatment #1: CBT Objective #1 Goal Status: Progressing, continue Objective #1 Start Date: 11/01/24 Objective #1 Review Date: 11/15/24 Objective #1 Anticipated Completion Date: 12/01/24 Objectives of Treatment #2: Decrease feelings of hopelessness, increase self-esteem, increase healthy coping skills, return to previous highest level of functioning. Goal to decrease CSSRS to 0. Initial score with this provider was 1, current score 0. Goals of Treatment #2: Decreased suicide risk factors Interventions of Treatment #2: CBT, Safety Planning Objective #2 Goal Status: Goal met Objective #2 Start Date: 11/01/24 Objective #2 Review Date: 11/15/24 Objective #2 Anticipated Completion Date: 11/23/24 Objective #2 Date Met: 11/23/24 Treatment Planning Requirements: 1) Developed treatment plan collaboratively with patient, with agreement on plan of care and goals, 2) Patient agrees to attend appointments, engage in treatment, discuss any concerns in order to meet treatment goals, 3) Provider will leverage patient strengths and limit potential barriers to treatment Extracted from:Title: BEH *Psychiatrist OP Follow Up Note Author: HUGO ELIZABETH NP, Psychiatry Date: 11/23/24 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 reports he arrived at [facility] [employer] on 10MAY2024 for BCT. reports he has been a hold over and not training since 21JUL2024 due to chest pain. also reports he refused to train. [2] Contacted who was out at the range. Went to unit and no one was on CTA to verify medication dose. Discussed reducing to a half tab of the large white pill (which causes the eye pain) as a trial until Wednesday, [facility] will follow up in foot print with trainee. He currently denies any SI.HI AVH. He attended group on thinking traps; homework given to assess for being stuck in a thinking trap when hallucinations/ self doubt present. [4] Problems of adjustment to life-cycle transitions Ordered: Comprehensive Metabolic Panel Prolactin Level Prognosis: Fair Benefits, Risks, Alternatives Discussed: Yes Benefits, Risks, SE Comments: Treatment plan will be completed by assigned provider. Today s encounter was a walk-in session. Treatment Plan: Continue current medications, Encourage balanced diet, Exercise 4-5 times / week, Practice good sleep hygiene, Continue current psychotherapy Number of Visits Expected: 4-8 Target Symptoms: Anxiety Goals of Treatment: Improve overall functioning, Decrease in target symptoms Evaluation Type: By complexity Objectives of Treatment #1: Reduce overall frequency, intensity, and duration of the anxiety so that daily functioning is not impaired, enhances the ability to cope with the full variety of life’s anxieties effectively. Decrease GAD7 by 50%. Initial score 20 Goals of Treatment #1: Other: I want to decrease my anxiety Interventions of Treatment #1: CBT Objective #1 Goal Status: Initial Objective #1 Start Date: 11/01/24 Objective #1 Review Date: 11/15/24 Objective #1 Anticipated Completion Date: 11/22/24 Objectives of Treatment #2: Decrease feelings of hopelessness, increase self-esteem, increase healthy coping skills, return to previous highest level of functioning. Decrease CSSRS to 0. Current score 1. SM verbally denies any history of suicide behaviors. Goals of Treatment #2: Decreased suicide risk factors Interventions of Treatment #2: CBT, Safety Planning Objective #2 Goal Status: Initial Objective #2 Start Date: 11/01/24 Objective #2 Review Date: 11/15/24 Objective #2 Anticipated Completion Date: 11/22/24 Treatment Planning Requirements: 1) Developed treatment plan collaboratively with patient, with agreement on plan of care and goals, 2) Patient agrees to attend appointments, engage in treatment, discuss any concerns in order to meet treatment goals, 3) Provider will leverage patient strengths and limit potential barriers to treatment Extracted from:Title: BEH *Psychiatrist OP Follow Up Note Author: HUGO ELIZABETH NP, Psychiatry Date: 11/09/24 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 SM reports he arrived at [facility] on 10MAY2024 for BCT. SM reports he has been a hold over and not training since 21JUL2024 due to chest pain. SM also reports he refused to train. [2] Contacted CQ who was out at the range. Went to unit and no one was on CTA to verify medication dose. Discussed reducing to a half tab of the large white pill (which causes the eye pain) as a trial until Wednesday, O will follow up in foot print with trainee. He currently denies any SI.HI AVH. He attended group on thinking traps; homework given to assess for being stuck in a thinking trap when hallucinations/ self doubt present. Problems of adjustment to life-cycle transitions Prognosis: Fair Benefits, Risks, Alternatives Discussed: Yes Benefits, Risks, SE Comments: Treatment plan will be completed by assigned provider. Today s encounter was a walk-in session. Treatment Plan: Continue current medications, Encourage balanced diet, Exercise 4-5 times / week, Practice good sleep hygiene, Continue current psychotherapy Number of Visits Expected: 4-8 Target Symptoms: Anxiety Goals of Treatment: Improve overall functioning, Decrease in target symptoms Evaluation Type: By complexity Objectives of Treatment #1: Reduce overall frequency, intensity, and duration of the anxiety so that daily functioning is not impaired, enhances the ability to cope with the full variety of life’s anxieties effectively. Decrease GAD7 by 50%. Initial score 20 Goals of Treatment #1: Other: I want to decrease my anxiety Interventions of Treatment #1: CBT Objective #1 Goal Status: Initial Objective #1 Start Date: 11/01/24 Objective #1 Review Date: 11/15/24 Objective #1 Anticipated Completion Date: 11/22/24 Objectives of Treatment #2: Decrease feelings of hopelessness, increase self-esteem, increase healthy coping skills, return to previous highest level of functioning. Decrease CSSRS to 0. Current score 1. verbally denies any history of suicide behaviors. Goals of Treatment #2: Decreased suicide risk factors Interventions of Treatment #2: CBT, Safety Planning Objective #2 Goal Status: Initial Objective #2 Start Date: 11/01/24 Objective #2 Review Date: 11/15/24 Objective #2 Anticipated Completion Date: 11/22/24 Treatment Planning Requirements: 1) Developed treatment plan collaboratively with patient, with agreement on plan of care and goals, 2) Patient agrees to attend appointments, engage in treatment, discuss any concerns in order to meet treatment goals, 3) Provider will leverage patient strengths and limit potential barriers to treatment Extracted from:Title: BEH SHPP Intake Author: Kellie Coronado, GARBAGE PICK UP MAN, Social Work Date: 11/01/24 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 LAUREN reports he arrived at [facility] [employer] [facility] on 10MAY2024 for BCT. LAUREN reports he has been a hold over and not training since 21JUL2024 due to chest pain. LAUREN also reports he refused to train. 1. O ther physical and mental strain related to work S ymptoms reported by LAUREN appear to be secondary to the current stress of being from his family and of being immersed in the [employer] culture. LAUREN is in a high stress environment accompanied by significant transition and current presenting symptoms will likely naturally resolve on their own over time. Prognosis: Fair Benefits, Risks, Alternatives Discussed: Yes Treatment Plan: Encourage balanced diet, Exercise 4-5 times / week, Practice good sleep hygiene, Continue current psychotherapy Number of Visits Expected: 4-8 Target Symptoms: Anxiety Evaluation Type: By complexity Objectives of Treatment #1: Reduce overall frequency, intensity, and duration of the anxiety so that daily functioning is not impaired, enhances the ability to cope with the full variety of life’s anxieties effectively. Decrease GAD7 by 50%. Initial score 20 Goals of Treatment #1: Other: I want to decrease my anxiety Interventions of Treatment #1: CBT Objective #1 Goal Status: Initial Objective #1 Start Date: 11/01/24 Objective #1 Review Date: 11/15/24 Objective #1 Anticipated Completion Date: 11/22/24 Objectives of Treatment #2: Decrease feelings of hopelessness, increase self-esteem, increase healthy coping skills, return to previous highest level of functioning. Decrease CSSRS to 0. Current score 1. SM verbally denies any history of suicide behaviors. Goals of Treatment #2: Decreased suicide risk factors Interventions of Treatment #2: CBT, Safety Planning Objective #2 Goal Status: Initial Objective #2 Start Date: 11/01/24 Objective #2 Review Date: 11/15/24 Objective #2 Anticipated Completion Date: 11/22/24 Treatment Planning Requirements: 1) Developed treatment plan collaboratively with patient, with agreement on plan of care and goals, 2) Patient agrees to attend appointments, engage in treatment, discuss any concerns in order to meet treatment goals, 3) Provider will leverage patient strengths and limit potential barriers to treatment Extracted from:Title: BEH [facility] Walk-In #1 Author: LUCÍA AUSTIN Date: 10/23/24 SM is S michel/24 y rs. o ld/ / Male/[employer]/PVT-E2/Unit: D /RN: 420/MOS:25H/TIS:05 /SM arrived at [place], [place] o n 1 [id number]. SM is currently a holdover for recycle or separation. V62.89 (Z60.0) ?Phase of Life Problem sm is a hold over which has added stress to his current situation Benefits, Risks, SE Comments: Treatment plan will be completed by assigned provider. Today s encounter was a walk-in session. Extracted from:Title: F/U Er Author: SARAHY BONILLA, UNIT AIDE, Family Medicine Date: 10/23/24 1. C hest pain P T reports was cleared from cardiology. Was seen over HBL with civilian Cardio and advised that we need to collect records to add to medical records so that we can medically clear for RTD. Denies AWAD, chest pain, SHOB. Reports all symptoms have resolved and they believe to be cardio in nature. Advised to walk in with Ms. Garces at [place] to assist in getting records and for CM follow up. PT given packet to be able to request records. PT to report back to [facility] once records received. Patient agrees with plan and verbalized understanding 2. A nxiety P t to walk in to [facility] due to recent hospital encounter to discuss current concerns and as well discuss getting cleared to RTD. Reports they started him on medication, but he does not know the medication and that he never started it. Reports some anxiety b ut is feeling okay. He is optimistic about going to [facility] to recycle and continue with BCT. Portions of this encounter were generated with voice recognition software. T here may be typographical and/or grammatical inaccuracies in business process manager. Sarahy Bonilla, CELL BIOLOGY SCIENTIST-C/AMNP CPT, [address], [place] BN Surgeon Patty Collier [place] Extracted from:Title: Admin-Cardio [facility] f/u Discussion Author: SARAHY BONILLA NP Date: 08/29/24 1. C hest pain Cardio APT note reviewed. Referral was placed. Will assist in scheduling outside APT and getting records faxed-Reached out to Santosh Dez at [facility] for assistance. PT to be notified when APT date and time scheduled. Discussed will do our best to get completed prior to HBL, but this may have to occur after. Denies any current headaches, chest pain, SHOB, or palpitations. ER precautions advised. Patient agrees with plan and verbalized understanding. Medications Reconcilled. Portions of this encounter were generated with voice recognition software. T here may be typographical and/or grammatical inaccuracies in business process manager. Sarahy Bonilla, CELL BIOLOGY SCIENTIST-C/AMNP CPT, [address], IN BN Surgeon [place], [place] Extracted from:Title: [facility] Internal Medicine Consult - Chest Pain Author: FERNANDO ROMERO MD Date: 08/22/24 1. C hest pain Possibly c ardiac chest pain ( per ACC/AHA c hest pain guideline definition) w ith?clinically positive e xercise stress test. All other e valuation has been negative including CBC, resting EKG, n oncontrast CT, T TE, PFTs. Warrants further evaluation with m yocardial perfusion scan. Plan: -Referral for MPS placed - will be referred out to civilian facility, since [facility] does not have the capabilities currently -cc'ing r eferring provider f or their awareness -Present to ED if symptoms do not resolve or acutely worsen Fernando Romero MD Captain, [employer], [employer] Staff Psychiatrist and Law Firm Partner [place], [place] Extracted from:Title: Admin Discussion Author: SARAHY BONILLA NP Date: 08/02/24 1. C hest pain on exertion Denies any chest pain or SHOB. He reports his condition as improved. Educated on cardio referral due to GXT. I am glad your symptoms have resolved but will be unable to complete CH 11 physical until you have your APT with cardiology and they medically clear you from any further evaluation or treatment. Pending cardio referral at [facility]. Once apt is scheduled will notify yourself as well as command team. Depending on how that APT goes we can either medically clear you for separation or you may be here a little longer until further evaluation has been completed. Patient agrees with plan and verbalized understanding. Patient's medications reviewed for polypharmacy, drug interactions, and drug allergies and are reconciliated at this time. Patient implied understanding of provider's instructions and agrees to comply with treatment plan. Portions of this encounter were generated with voice recognition software. T here may be typographical and/or grammatical inaccuracies in business process manager. REINIER Arroyo-C/AMNCesar CPT, [address], [place] Surgeon [facility] [place] Extracted from:Title: 2 Cardio Referral Author: SARAHY BONILLA NP Date: 07/28/24 1. 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 Reported tingling to fingers when this occurs and feels SHOB. Trainee has no previous cardiac history, normal cardiopulmonary exam. PT hx of rhabdo and heat exhaustion end of April as well as pneumonia/covid mid May. SHOB has resolved but has continued with chest pain on exertion. Chest XR was completed with no findings, PFT was completed with normal findings. CT of chest completed 07/27/[address] resulted. Echocardiogram completed 07/26/24 with results showing normal echocardiographic study with no sonographic evidence of significant functional, structural, or valvular heart disease. PT completed GXT 07/26/24 with Overall Impression: Positive stress test suggestive of ischemia. Conclusion: Electrically negative, clinically positive test. DTS of 1 indicates moderate risk. Recommend further testing with MPS. Referral placed. PT aware when APT made will notify PT and command. Meds Reconciled. Patient agrees with plan and verbalized understanding. Ordered: Referral Request 2.0 - [facility]D 2. C ardiovascular stress test abnormal see above. Ordered: Referral Request 2.0 - [facility]D Portions of this encounter were generated with voice recognition software. T here may be typographical and/or grammatical inaccuracies in business process manager. REINIER Arroyo-C/AMNP CPT, AN [address] [place], [place] Surgeon Patty Collier [place] Extracted from:Title: 2 Admin Author: SARAHY BONILLA NP Date: 07/06/24 1. C hest pain on exertion Encounter for EKG only. please see previous note for full exam and note. Congestion of mucosa Encounter for EKG only. please see previous note for full exam and note. Cough Encounter for EKG only. please see previous note for full exam and note. Portions of this encounter were generated with voice recognition software. T here may be typographical and/or grammatical inaccuracies in business process manager. Sarahy Bonilla, CELL BIOLOGY SCIENTIST-C/AMNP CPT, [address], IN BN Surgeon KITTY Cantu Extracted from:Title: Near Syncope/Chest Pain on Exertion/Congestion Author: SARAHY BONILLA NP Date: 07/06/24 1. N ear syncope These events have been unwitnessed and denies telling the DS regarding the symptoms he was having.? Reports tingling to fingers when this occurs and feels SHOB. Trainee has no previous cardiac history, normal cardiopulmonary exam. PT hx of rhabdo and heat exhaustion end of April as well as pnemonia/covid mid May. He continued with SHOB with exertion and chest XR was completed with no findings, PFT was completed with normal findings as well. He reports he thought it was SHOB but he feels it is more the exhaustion and fatigue causing him to want to pass out. Would like to get cardiac stress test to rule out any cardiovascular involvement. EKG completed 06/30/24 showing NSR and no concerns. CBC, CMP, CK, Amylase, Lipase, TSH ordered with no immediate concerning findings. Pt does have low vit d. will have trainee follow up and vit d started. P atient agrees with plan and verbalized understanding. Patient's medications reviewed for polypharmacy, drug interactions, and drug allergies and are reconciliated at this time. Patient implied understanding of provider's instructions and agrees to comply with treatment plan. 2. C hest pain on exertion Pain in chest/heart every heartbeat concerns x1 day. LAUREN was seen previously 1 week ago for lethargy when exercising and discussion of a profile. LAUREN was set up a GXT a ppointment and requested to F/U if he has not heard any information in regards to the appointment. LAUREN states he has not and is also visiting sick call due to chest/heart pain every heartbeat as he states. 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 Symptoms include heart/chest pain every heartbeat and r andom n umbness in fingers. Fast movement, cardio provokes chest pain. Quality of pain is stabbing. Pain does not radiate, stays at chest area where heart is located. 6/10 pain. SM has not attempted any sort of self-treatment for his symptoms. SM feels that his overall condition i s getting worse. Rate wnl Intervals wnl rhythm sinus SQ no elevation or depression No axis deviation -CBC, CMP, CK, Amylase, Lipase, TSH ordered with no immediate concerning findings. -Will move forward with cardiac stress test at this time. Denies any cardiac history and this is the first time he has brought up symptoms. -Placed on no training profile at this time. 689 given and company aware. Once APT scheduled will contact company and trainee. ER precautions advised for worsening symptoms or generalized feeling that something is not right. 3. C ongestion of mucosa Due to ongoing cough/congestion with new onset of fatigue and f/u chest XR still unremarkable will move forward with Chest CT without contrast at this time. Order placed. Once schedule will notify of APT date and time. See Referral order comments. ER precautions advised. Patient agrees with plan and verbalized understanding. 4. C ough see above. Portions of this encounter were generated with voice recognition software. T here may be typographical and/or grammatical inaccuracies in business process manager. MANNY ArroyoP-C/P CPT, [address] [place], [place] BN Surgeon KITTY Cantu Extracted from:Title: Near Syncope/Fatigue Author: SARAHY BONILLA NP Date: 07/03/24 1. N ear syncope Reports that he has not had any LOC, but any time he exerts himself too much physically he gets really tired. He was not working out prior to coming to [facility] and we did discuss that if he is out of shape and then coming here with the physical exertion demands along with the heat this is going to cause him to fatigue easily. Discussed weight loss and how this can be beneficial, but also time to get his body into better shape. He has been a heat causality before so this is going to increase his change of having another one. Had PFT testing completed and results came back normal. Discussed that this most likely is not cardiac in nature but would be best to get a cardiac stress test to ensure this is not contributing. Will also repeat labs today as well for review. Consult submitted- Will reach out to Ms. Garces to assist with scheduling assistance. 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 Reports tingling to fingers when this occurs and feels SHOB. Trainee has no previous cardiac history, normal cardiopulmonary exam. PT hx of rhabdo and heat exhaustion end of April as well as pneumonia/covid mid May. He continued with SHOB with exertion and chest XR was completed with no findings, PFT was completed with normal findings as well. He reports he thought it was SHOB but he feels it is more the exhaustion and fatigue causing him to want to pass out. Would like to get cardiac stress test to rule out any cardiovascular involvement. EKG completed 06/30/24 showing NSR and no concerns. Please complete Cardiac Stress test. Er precautions advised. Follow up in one week if not heard about GXT APT. Patient's medications reviewed for polypharmacy, drug interactions, and drug allergies and are reconciliated at this time. Patient implied understanding of provider's instructions and agrees to comply with treatment plan. Patient agrees with plan and verbalized understanding. Ordered: CBC w/ Diff Comprehensive Metabolic Panel Creatine Kinase Urinalysis with Microscopic and Culture if Indicated 2. F atigue see above. Orders: *Differential Automated *Glomerular Filtration Rate, Estimated Portions of this encounter were generated with voice recognition software. T here may be typographical and/or grammatical inaccuracies in business process manager. Sarahy Bonilla, CELL BIOLOGY SCIENTIST-C/AMNP CPT, [address] [place], 2-47 [place] BN Surgeon [facility] [place] Extracted from:Title: Follow up Near syncope-[facility] Author: SUZETTE JENNINGS PA Date: 06/30/24 1. N ear syncope VS stable. Neuro intact. Lung exam clear. No evidence of heat exhaustion/rhabdomyolysis. EKG pending official read by Dr. Ekta bragg nd CXR unremarkable. Will place e profile today for no physical training, 3 copies given to . PFT's results reviewed today; normal spirometry. Will consider further cardiac work up. Meds reconciled. Stay hydrated. ER precautions given. RTC/BN aid station Wednesday. SM verbalizes understanding of these specific instructions. 2. E ncounter for follow-up examination after completed treatment for conditions other than malignant neoplasm Repeat UA with resolved proteinuria. Results reviewed with SM and all questions have been answered. SM verbalizes understanding. Suzette Purvis [place], [place] Extracted from:Title: [facility] TRIAGE NOTE #1 Author: JEREL MIRANDA Date: 05/22/24 This appointment is not deployment related. SM is Active, a S michel 24 - year-old male with?0 c hildren. 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 SM TIS is?2 weeks. 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 Suicidal Thoughts Patient developed more complaints about his mental health each day during his visit. What started as depression and anxiety culminated in thoughts of wanting to harm himseld by day of discharge. Psychiatry evaluated patient determined him not to be safety risk to himself or others at this time, and safe for outpatient f/u at [facility] Wednesday morning at 8:30AM. He has no mental health history. 2. H eat I aung M et criteria for heat illness by e levated core temperature to 102.5F after ice sheets, normal mental status w/o LOC, and evidence of end-organ effects to liver (modest elevations in bili and LFTs). Lactic acidosis was present at time of admission also that shortly resolved after fluids.?Attributable in part to his COVID+ status, reported dehydration, and lack of AC in [employer]. Patient responded well to IVF and by day 2 was transitioned to PO intake. He d isplayed nearly 4L of urine output his second day, and continued to make large amounts of urine on day of discharge. His liver enzymes remained mildly elevated but stable, never displaying any abnormalities in coags. He i s safe f or discharge with outpatient f/u at [facility] for repeat labs 3. R habdomyolysis C K 16,823 on presentation with myalgias in upper and lower extremities. No KRIS at time of admission. N o signs of compartment syndrome. H is CK remained elevated his second day but was downtrending x 3 in a row on q6h labs by time of discharge. Safe for dc with close outpatient f/u at [facility] 4. U pper respiratory infection caused by COVID-19 Patient's 1 week respiratory symptoms, were attributed to COVID-19 this stay. Prior to differentiating his illness he received 1 dose of Rocephin. H e was negative for flu, h ad an X R without focal or diffuse consolidations, clear lungs on exam, and d id not develop a significant leukocytosis this stay. He required no supplemental oxygen either. Patient is safe for discharge with 5 days of quarters and an additional 5 days of wearing a mask. -Tessalon Perles -Ibuprofen 5. Dental caries Patient complained of frontal maxillary tooth pain this stay. Noted to have cavities. Recommend f/u with dentist outpatient 6.External Hemorrhoid Patient symptomatic for hemorrhoids this stay. A 1cm external hemorrhoid was noted on physical exam. He was started on Miralax BID and experienced relief with this treatment. On day of discharge endorsed having painless BM. -Miralax BID Plan of care was discussed with and approved by attending physician, Dr. Giancarlo Reardon MD [facility], Family Medicine PGY-2 I attest to the accuracy of this note as to history, physical examination, and medical decision-making with any exceptions or corrections noted. I independently performed or re-performed the physical examination on the date of the encounter. Mary Anthony MD [facility], , [facility] Physician Scribe, PGY-3 [facility] Addendum by JUAN J MONDRAGON DO on May 20, 2024 13:49:02 EDT I have reviewed the above note, performed an exam myself on the patient above, discussed plan of care with the inpatient team and the house staff and agree with the note as written above with the following addition: patient was awake alert and denied SI/SH at time of discharge and has outpatient follow-up scheduled to meet with behavioral health on Wednesday. Profile placed for heat injury and to follow-up with [facility]. ---- Signed/written by: Juan J Mondragon DO, ATC [facility], [facility] Primary Care Sports Medicine [facility] [place], [place] Extracted from:Title: Education Note Author: JUAN MIGUEL KOENIG Date: 03/14/24 Extracted from:Title: Education Note Author: JUAN MIGUEL KOENIG Date: 02/25/24 Diagnostic Tests PendingDNA Repository Sample DVRDNA [id number] 05/10/24 Future Scheduled TestsLaboratoryProlactin Level 11/23/24Hemoglobin A1c 11/23/24Comprehensive Metabolic Panel 11/23/24 04/10/2025 [id number]-OPFORCES LORETTA GONSALVES Assessment and Plan Extracted from:Title : [facility] Follow-Up #2 Author: Kellie Coronado, GARBAGE PICK UP MAN, Social Work Date: 12/01/24 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 LAUREN reports he arrived at [facility] [employer] on 10MAY2024 for BCT. LAUREN reports he has been a hold over and not training since 21JUL2024 due to chest pain. LAUREN also reports he refused to train. LAUREN completed his chapter separation physical on [id number]. 1. O ther physical and mental strain related to work Symptoms reported by LAUREN appear to be secondary to the current stress of being from his family and of being immersed in the [employer] culture. LAUREN is in a high stress environment accompanied by significant transition and current presenting symptoms will likely naturally resolve on their own over time. [1] LAUREN presentation does not currently indicate primary DSM5 diagnosis. Prognosis: Fair Benefits, Risks, Alternatives Discussed: Yes Treatment Plan: Continue current medications, Encourage balanced diet, Exercise 4-5 times / week, Practice good sleep hygiene, Continue current psychotherapy Number of Visits Expected: 4-8 Target Symptoms: Anxiety Goals of Treatment: Improve overall functioning, Decrease in target symptoms Methods of Monitoring Outcomes: Reduced CSSRS score, Reduced CECI-7 score, Reduced PHQ-9 score Evaluation Type: By complexity Objectives of Treatment #1: Reduce overall frequency, intensity, and duration of the anxiety so that daily functioning is not impaired, enhances the ability to cope with the full variety of life’s anxieties effectively. Decrease GAD7 by 50%. Initial score 20, current score 20 Goals of Treatment #1: Other: I want to decrease my anxiety Interventions of Treatment #1: CBT Objective #1 Goal Status: Revised Objective #1 Start Date: 11/01/24 Objective #1 Review Date: 11/15/24 Objective #1 Anticipated Completion Date: 12/01/24 Objective #1 Date Met: 12/01/24 Objective #1 Comment: Although SM's DP GAD7 indicates 20, this is incongruent with presentation and actual report of symptoms. Concern for over-reporting for perceived secondary gain as SM has asked multiple times about applying for VA benefits Objectives of Treatment #2: Decrease feelings of hopelessness, increase self-esteem, increase healthy coping skills, return to previous highest level of functioning. Goal to decrease CSSRS to 0. Initial score with this provider was 1, current score 1 for mobid ideation, denies SI. Goals of Treatment #2: Decreased suicide risk factors Interventions of Treatment #2: CBT, Safety Planning Objective #2 Goal Status: Goal met Objective #2 Start Date: 11/01/24 Objective #2 Review Date: 11/15/24 Objective #2 Anticipated Completion Date: 11/23/24 Objective #2 Date Met: 11/23/24 Treatment Planning Requirements: 1) Developed treatment plan collaboratively with patient, with agreement on plan of care and goals, 2) Patient agrees to attend appointments, engage in treatment, discuss any concerns in order to meet treatment goals, 3) Provider will leverage patient strengths and limit potential barriers to treatment Extracted from:Title: 2-47 Seperation Physical Author: SARAHY BONILLA NP, Family Medicine Date: 11/29/24 1. E ncounter for general adult medical examination without abnormal findings DD Form 2697 and 689 complete. Medically c leared for separation Counseled S M to avoid, drugs, alcohol and tobacco use. Counseled SM to maintain a healthy diet / low in sweets and high fat foods. Counseled SM on using seat belts / do not text and drive. Counseled SM on safe sex and STD prevention. Counseled SM to engage in physical activity at least one hour per day. SM verbalized understanding. 2. A dministrative reason for encounter see above. Portions of this encounter were generated with voice recognition software. T here may be typographical and/or grammatical inaccuracies in business process manager. Sarahy Bonilla, CELL BIOLOGY SCIENTIST-C/P CPT, [address] [place], [place] Surgeon 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 LAUREN reports he arrived at [facility] [employer] on 10MAY2024 for BCT. LAUREN reports he has been a hold over and not training since 21JUL2024 due to chest pain. LAUREN also reports he refused to train. LAUREN is now pending a Chapter 11 separation. 1. O ther physical and mental strain related to work Symptoms reported by LAUREN appear to be secondary to the current stress of being from his family and of being immersed in the [employer] culture. LAUREN is in a high stress environment accompanied by significant transition and current presenting symptoms will likely naturally resolve on their own over time. [1] Prognosis: Fair Benefits, Risks, Alternatives Discussed: Yes Treatment Plan: Continue current medications, Encourage balanced diet, Exercise 4-5 times / week, Practice good sleep hygiene, Continue current psychotherapy Number of Visits Expected: 4-8 Target Symptoms: Anxiety Goals of Treatment: Improve overall functioning, Decrease in target symptoms Methods of Monitoring Outcomes: Reduced CSSRS score, Reduced CECI-7 score, Reduced PHQ-9 score Evaluation Type: By complexity Objectives of Treatment #1: Reduce overall frequency, intensity, and duration of the anxiety so that daily functioning is not impaired, enhances the ability to cope with the full variety of life’s anxieties effectively. Decrease GAD7 by 50%. Initial score 20, current score 20 Goals of Treatment #1: Other: I want to decrease my anxiety Interventions of Treatment #1: CBT Objective #1 Goal Status: Progressing, continue Objective #1 Start Date: 11/01/24 Objective #1 Review Date: 11/15/24 Objective #1 Anticipated Completion Date: 12/01/24 Objectives of Treatment #2: Decrease feelings of hopelessness, increase self-esteem, increase healthy coping skills, return to previous highest level of functioning. Goal to decrease CSSRS to 0. Initial score with this provider was 1, current score 0. Goals of Treatment #2: Decreased suicide risk factors Interventions of Treatment #2: CBT, Safety Planning Objective #2 Goal Status: Goal met Objective #2 Start Date: 11/01/24 Objective #2 Review Date: 11/15/24 Objective #2 Anticipated Completion Date: 11/23/24 Objective #2 Date Met: 11/23/24 Treatment Planning Requirements: 1) Developed treatment plan collaboratively with patient, with agreement on plan of care and goals, 2) Patient agrees to attend appointments, engage in treatment, discuss any concerns in order to meet treatment goals, 3) Provider will leverage patient strengths and limit potential barriers to treatment Extracted from:Title: [facility] *Psychiatrist OP Follow Up Note Author: HUGO ELIZABETH NP, Psychiatry Date: 11/23/24 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 reports he arrived at [facility] [employer] on 10MAY2024 for BCT. reports he has been a hold over and not training since 21JUL2024 due to chest pain. also reports he refused to train. [2] Contacted who was out at the range. Went to unit and no one was on CTA to verify medication dose. Discussed reducing to a half tab of the large white pill (which causes the eye pain) as a trial until Wednesday, [facility] will follow up in foot print with trainee. He currently denies any SI.HI AVH. He attended group on thinking traps; homework given to assess for being stuck in a thinking trap when hallucinations/ self doubt present. [4] Problems of adjustment to life-cycle transitions Ordered: Comprehensive Metabolic Panel Prolactin Level Prognosis: Fair Benefits, Risks, Alternatives Discussed: Yes Benefits, Risks, SE Comments: Treatment plan will be completed by assigned provider. Today s encounter was a walk-in session. Treatment Plan: Continue current medications, Encourage balanced diet, Exercise 4-5 times / week, Practice good sleep hygiene, Continue current psychotherapy Number of Visits Expected: 4-8 Target Symptoms: Anxiety Goals of Treatment: Improve overall functioning, Decrease in target symptoms Evaluation Type: By complexity Objectives of Treatment #1: Reduce overall frequency, intensity, and duration of the anxiety so that daily functioning is not impaired, enhances the ability to cope with the full variety of life’s anxieties effectively. Decrease GAD7 by 50%. Initial score 20 Goals of Treatment #1: Other: I want to decrease my anxiety Interventions of Treatment #1: CBT Objective #1 Goal Status: Initial Objective #1 Start Date: 11/01/24 Objective #1 Review Date: 11/15/24 Objective #1 Anticipated Completion Date: 11/22/24 Objectives of Treatment #2: Decrease feelings of hopelessness, increase self-esteem, increase healthy coping skills, return to previous highest level of functioning. Decrease CSSRS to 0. Current score 1. SM verbally denies any history of suicide behaviors. Goals of Treatment #2: Decreased suicide risk factors Interventions of Treatment #2: CBT, Safety Planning Objective #2 Goal Status: Initial Objective #2 Start Date: 11/01/24 Objective #2 Review Date: 11/15/24 Objective #2 Anticipated Completion Date: 11/22/24 Treatment Planning Requirements: 1) Developed treatment plan collaboratively with patient, with agreement on plan of care and goals, 2) Patient agrees to attend appointments, engage in treatment, discuss any concerns in order to meet treatment goals, 3) Provider will leverage patient strengths and limit potential barriers to treatment Extracted from:Title: BEH *Psychiatrist OP Follow Up Note Author: HUGO ELIZABETH NP, Psychiatry Date: 11/09/24 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 LAUREN reports he arrived at [facility] [employer] on 10MAY2024 for BCT. reports he has been a hold over and not training since 21JUL2024 due to chest pain. SM also reports he refused to train. [2] Contacted who was out at the range. Went to unit and no one was on CTA to verify medication dose. Discussed reducing to a half tab of the large white pill (which causes the eye pain) as a trial until Wednesday, [facility] will follow up in foot print with trainee. He currently denies any SI.HI AVH. He attended group on thinking traps; homework given to assess for being stuck in a thinking trap when hallucinations/ self doubt present. Problems of adjustment to life-cycle transitions Prognosis: Fair Benefits, Risks, Alternatives Discussed: Yes Benefits, Risks, SE Comments: Treatment plan will be completed by assigned provider. Today s encounter was a walk-in session. Treatment Plan: Continue current medications, Encourage balanced diet, Exercise 4-5 times / week, Practice good sleep hygiene, Continue current psychotherapy Number of Visits Expected: 4-8 Target Symptoms: Anxiety Goals of Treatment: Improve overall functioning, Decrease in target symptoms Evaluation Type: By complexity Objectives of Treatment #1: Reduce overall frequency, intensity, and duration of the anxiety so that daily functioning is not impaired, enhances the ability to cope with the full variety of life’s anxieties effectively. Decrease GAD7 by 50%. Initial score 20 Goals of Treatment #1: Other: I want to decrease my anxiety Interventions of Treatment #1: CBT Objective #1 Goal Status: Initial Objective #1 Start Date: 11/01/24 Objective #1 Review Date: 11/15/24 Objective #1 Anticipated Completion Date: 11/22/24 Objectives of Treatment #2: Decrease feelings of hopelessness, increase self-esteem, increase healthy coping skills, return to previous highest level of functioning. Decrease CSSRS to 0. Current score 1. SM verbally denies any history of suicide behaviors. Goals of Treatment #2: Decreased suicide risk factors Interventions of Treatment #2: CBT, Safety Planning Objective #2 Goal Status: Initial Objective #2 Start Date: 11/01/24 Objective #2 Review Date: 11/15/24 Objective #2 Anticipated Completion Date: 11/22/24 Treatment Planning Requirements: 1) Developed treatment plan collaboratively with patient, with agreement on plan of care and goals, 2) Patient agrees to attend appointments, engage in treatment, discuss any concerns in order to meet treatment goals, 3) Provider will leverage patient strengths and limit potential barriers to treatment Extracted from:Title: [facility] SHPP Intake Author: Kellie Coronado, GARBAGE PICK UP MAN, Social Work Date: 11/01/24 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 LAUREN reports he arrived [facility] on [facility] for BCT. SM reports he has been a hold over and not training since 21JUL2024 due to chest pain. SM also reports he refused to train. 1. O ther physical and mental strain related to work S ymptoms reported by SM appear to be secondary to the current stress of being from his family and of being immersed in the [employer] culture. LAUREN is in a high stress environment accompanied by significant transition and current presenting symptoms will likely naturally resolve on their own over time. Prognosis: Fair Benefits, Risks, Alternatives Discussed: Yes Treatment Plan: Encourage balanced diet, Exercise 4-5 times / week, Practice good sleep hygiene, Continue current psychotherapy Number of Visits Expected: 4-8 Target Symptoms: Anxiety Evaluation Type: By complexity Objectives of Treatment #1: Reduce overall frequency, intensity, and duration of the anxiety so that daily functioning is not impaired, enhances the ability to cope with the full variety of life’s anxieties effectively. Decrease GAD7 by 50%. Initial score 20 Goals of Treatment #1: Other: I want to decrease my anxiety Interventions of Treatment #1: CBT Objective #1 Goal Status: Initial Objective #1 Start Date: 11/01/24 Objective #1 Review Date: 11/15/24 Objective #1 Anticipated Completion Date: 11/22/24 Objectives of Treatment #2: Decrease feelings of hopelessness, increase self-esteem, increase healthy coping skills, return to previous highest level of functioning. Decrease CSSRS to 0. Current score 1. SM verbally denies any history of suicide behaviors. Goals of Treatment #2: Decreased suicide risk factors Interventions of Treatment #2: CBT, Safety Planning Objective #2 Goal Status: Initial Objective #2 Start Date: 11/01/24 Objective #2 Review Date: 11/15/24 Objective #2 Anticipated Completion Date: 11/22/24 Treatment Planning Requirements: 1) Developed treatment plan collaboratively with patient, with agreement on plan of care and goals, 2) Patient agrees to attend appointments, engage in treatment, discuss any concerns in order to meet treatment goals, 3) Provider will leverage patient strengths and limit potential barriers to treatment Extracted from:Title: [facility] Walk-In #1 Author: LUCÍA AUSTIN Date: 10/23/24 SM is S michel/24 y rs. o ld/ / Male/[employer]T-E2/Unit: D /RN: 420/MOS:25H/TIS:05 /SM arrived at [place], [place] o n [id number]. SM is currently a holdover for recycle or separation. V62.89 (Z60.0) ?Phase of Life Problem sm is a hold over which has added stress to his current situation Benefits, Risks, SE Comments: Treatment plan will be completed by assigned provider. Today s encounter was a walk-in session. Extracted from:Title: F/U Er Author: SARAHY BONILLA NP, Family Medicine Date: 10/23/24 1. C hest pain P T reports was cleared from cardiology. Was seen over HBL with civilian Cardio and advised that we need to collect records to add to medical records so that we can medically clear for RTD. Denies AWAD, chest pain, SHOB. Reports all symptoms have resolved and they believe to be cardio in nature. Advised to walk in with Ms. Garces at [place] to assist in getting records and for CM follow up. PT given packet to be able to request records. PT to report back to [facility] once records received. Patient agrees with plan and verbalized understanding 2. A nxiety P t to walk in to [facility] due to recent hospital encounter to discuss current concerns and as well discuss getting cleared to RTD. Reports they started him on medication, but he does not know the medication and that he never started it. Reports some anxiety b ut is feeling okay. He is optimistic about going to [facility] to recycle and continue with BCT. Portions of this encounter were generated with voice recognition software. T here may be typographical and/or grammatical inaccuracies in business process manager. Sarahy Bonilla, CELL BIOLOGY SCIENTIST-C/AMNP CPT, [address], [place] BN Surgeon [place], [place] Extracted from:Title: Admin-Cardio [facility] f/u Discussion Author: SARAHY BONILLA NP Date: 08/29/24 1. C hest pain Cardio APT note reviewed. Referral was placed. Will assist in scheduling outside APT and getting records faxed-Reached out to CM Ms. Garces at [facility] for assistance. PT to be notified when APT date and time scheduled. Discussed will do our best to get completed prior to HBL, but this may have to occur after. Denies any current headaches, chest pain, SHOB, or palpitations. ER precautions advised. Patient agrees with plan and verbalized understanding. Medications Reconcilled. Portions of this encounter were generated with voice recognition software. T here may be typographical and/or grammatical inaccuracies in business process manager. REINIER Arroyo-C/AMNP CPT, [address] [place], [place] [facility] [place] Extracted from:Title: [facility] Internal Medicine Consult - Chest Pain Author: FERNANDO ROMERO MD Date: 08/22/24 1. C hest pain Possibly c ardiac chest pain ( per ACC/AHA c hest pain guideline definition) w ith?clinically positive e xercise stress test. All other e valuation has been negative including CBC, resting EKG, n oncontrast CT, T TE, PFTs. Warrants further evaluation with m yocardial perfusion scan. Plan: -Referral for MPS placed - will be referred out to civilian facility, since [facility] does not have the capabilities currently -cc'ing r eferring provider f or their awareness -Present to ED if symptoms do not resolve or acutely worsen Fernando Romero MD [facility], [facility] Staff Psychiatrist and Law Firm Partner [place], [place] Extracted from:Title: Admin Discussion Author: SARAHY BONILLA NP Date: 08/02/24 1. C hest pain on exertion Denies any chest pain or SHOB. He reports his condition as improved. Educated on cardio referral due to GXT. I am glad your symptoms have resolved but will be unable to complete CH 11 physical until you have your APT with cardiology and they medically clear you from any further evaluation or treatment. Pending cardio referral at [facility]. Once apt is scheduled will notify yourself as well as command team. Depending on how that APT goes we can either medically clear you for separation or you may be here a little longer until further evaluation has been completed. Patient agrees with plan and verbalized understanding. Patient's medications reviewed for polypharmacy, drug interactions, and drug allergies and are reconciliated at this time. Patient implied understanding of provider's instructions and agrees to comply with treatment plan. Portions of this encounter were generated with voice recognition software. T here may be typographical and/or grammatical inaccuracies in business process manager. NGOZI ArroyoC/AMNP CPT, AN [address] [place], [place] [facility] [place] Extracted from:Title: Cardio Referral Author: SARAHY BONILLA NP Date: 07/28/24 1. 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 Reported tingling to fingers when this occurs and feels SHOB. Trainee has no previous cardiac history, normal cardiopulmonary exam. PT hx of rhabdo and heat exhaustion end of April as well as pneumonia/covid mid May. SHOB has resolved but has continued with chest pain on exertion. Chest XR was completed with no findings, PFT was completed with normal findings. CT of chest completed 07/27/[address] resulted. Echocardiogram completed 07/26/24 with results showing normal echocardiographic study with no sonographic evidence of significant functional, structural, or valvular heart disease. PT completed GXT 07/26/24 with Overall Impression: Positive stress test suggestive of ischemia. Conclusion: Electrically negative, clinically positive test. DTS of 1 indicates moderate risk. Recommend further testing with MPS. Referral placed. PT aware when APT made will notify PT and command. Meds Reconciled. Patient agrees with plan and verbalized understanding. Ordered: Referral Request 2.0 - DoD 2. C ardiovascular stress test abnormal see above. Ordered: Referral Request 2.0 - DoD Portions of this encounter were generated with voice recognition software. T here may be typographical and/or grammatical inaccuracies in business process manager. REINIER Arroyo-C/AMNP [facility], AN [place], [place] [facility] [place] Extracted from:Title: Admin Author: SARAHY BONILLA NP Date: 07/06/24 1. C hest pain on exertion Encounter for EKG only. please see previous note for full exam and note. Congestion of mucosa Encounter for EKG only. please see previous note for full exam and note. Cough Encounter for EKG only. please see previous note for full exam and note. Portions of this encounter were generated with voice recognition software. T here may be typographical and/or grammatical inaccuracies in business process manager. REINIER Arroyo-C/AMNP CPT, AN [place], [place] [facility] [place] Extracted from:Title: 2-47 Near Syncope/Chest Pain on Exertion/Congestion Author: SARAHY BONILLA NP Date: 07/06/24 1. N ear syncope These events have been unwitnessed and denies telling the DS regarding the symptoms he was having.? Reports tingling to fingers when this occurs and feels SHOB. Trainee has no previous cardiac history, normal cardiopulmonary exam. PT hx of rhabdo and heat exhaustion end of April as well as pnemonia/covid mid May. He continued with SHOB with exertion and chest XR was completed with no findings, PFT was completed with normal findings as well. He reports he thought it was SHOB but he feels it is more the exhaustion and fatigue causing him to want to pass out. Would like to get cardiac stress test to rule out any cardiovascular involvement. EKG completed 06/30/24 showing NSR and no concerns. CBC, CMP, CK, Amylase, Lipase, TSH ordered with no immediate concerning findings. Pt does have low vit d. will have trainee follow up and vit d started. P atient agrees with plan and verbalized understanding. Patient's medications reviewed for polypharmacy, drug interactions, and drug allergies and are reconciliated at this time. Patient implied understanding of provider's instructions and agrees to comply with treatment plan. 2. C hest pain on exertion Pain in chest/heart every heartbeat concerns x1 day. SM was seen previously 1 week ago for lethargy when exercising and discussion of a profile. SM was set up a GXT a ppointment and requested to F/U if he has not heard any information in regards to the appointment. LAUREN states he has not and is also visiting sick call due to chest/heart pain every heartbeat as he states. 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 Symptoms include heart/chest pain every heartbeat and r andom n umbness in fingers. Fast movement, cardio provokes chest pain. Quality of pain is stabbing. Pain does not radiate, stays at chest area where heart is located. 6/10 pain. LAUREN has not attempted any sort of self-treatment for his symptoms. SM feels that his overall condition i s getting worse. Rate wnl Intervals wnl rhythm sinus SQ no elevation or depression No axis deviation -CBC, CMP, CK, Amylase, Lipase, TSH ordered with no immediate concerning findings. -Will move forward with cardiac stress test at this time. Denies any cardiac history and this is the first time he has brought up symptoms. -Placed on no training profile at this time. 689 given and company aware. Once APT scheduled will contact company and trainee. ER precautions advised for worsening symptoms or generalized feeling that something is not right. 3. C ongestion of mucosa Due to ongoing cough/congestion with new onset of fatigue and f/u chest XR still unremarkable will move forward with Chest CT without contrast at this time. Order placed. Once schedule will notify of APT date and time. See Referral order comments. ER precautions advised. Patient agrees with plan and verbalized understanding. 4. C ough see above. Portions of this encounter were generated with voice recognition software. T here may be typographical and/or grammatical inaccuracies in business process manager. Sarahy Bonilla, CELL BIOLOGY SCIENTIST-C/AMNP CPT, [address], [place] [facility] Sur[facility] [place] Extracted from:Title: Near Syncope/Fatigue Author: SARAHY BONILLA NP Date: 07/03/24 1. N ear syncope Reports that he has not had any LOC, but any time he exerts himself too much physically he gets really tired. He was not working out prior to coming to [facility] and we did discuss that if he is out of shape and then coming here with the physical exertion demands along with the heat this is going to cause him to fatigue easily. Discussed weight loss and how this can be beneficial, but also time to get his body into better shape. He has been a heat causality before so this is going to increase his change of having another one. Had PFT testing completed and results came back normal. Discussed that this most likely is not cardiac in nature but would be best to get a cardiac stress test to ensure this is not contributing. Will also repeat labs today as well for review. Consult submitted- Will reach out to Ms. Garces to assist with scheduling assistance. 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 Reports tingling to fingers when this occurs and feels SHOB. Trainee has no previous cardiac history, normal cardiopulmonary exam. PT hx of rhabdo and heat exhaustion end of April as well as pneumonia/covid mid May. He continued with SHOB with exertion and chest XR was completed with no findings, PFT was completed with normal findings as well. He reports he thought it was SHOB but he feels it is more the exhaustion and fatigue causing him to want to pass out. Would like to get cardiac stress test to rule out any cardiovascular involvement. EKG completed 06/30/24 showing NSR and no concerns. Please complete Cardiac Stress test. Er precautions advised. Follow up in one week if not heard about GXT APT. Patient's medications reviewed for polypharmacy, drug interactions, and drug allergies and are reconciliated at this time. Patient implied understanding of provider's instructions and agrees to comply with treatment plan. Patient agrees with plan and verbalized understanding. Ordered: CBC w/ Diff Comprehensive Metabolic Panel Creatine Kinase Urinalysis with Microscopic and Culture if Indicated 2. F atigue see above. Orders: *Differential Automated *Glomerular Filtration Rate, Estimated Portions of this encounter were generated with voice recognition software. T here may be typographical and/or grammatical inaccuracies in business process manager. Sarahy Bonilla, REINIER-C/AMNP CPT, [address] [place], 2-47 [place] BN Surgeon [place] Extracted from:Title: Follow up Near syncope-[facility] Author: SUZETTE JENNINGS PA Date: 06/30/24 1. N ear syncope VS stable. Neuro intact. Lung exam clear. No evidence of heat exhaustion/rhabdomyolysis. EKG pending official read by Dr. Ekta bragg nd CXR unremarkable. Will place e profile today for no physical training, 3 copies given to . PFT's results reviewed today; normal spirometry. Will consider further cardiac work up. Meds reconciled. Stay hydrated. ER precautions given. RTC/BN aid station Wednesday. SM verbalizes understanding of these specific instructions. 2. E ncounter for follow-up examination after completed treatment for conditions other than malignant neoplasm Repeat UA with resolved proteinuria. Results reviewed with SM and all questions have been answered. SM verbalizes understanding. Suzette Purvis [facility] KITTY Ramires Extracted from:Title: SHPP TRIAGE NOTE #1 Author: JEREL MIRANDA Date: 05/22/24 This appointment is not deployment related. LAUREN is Active, a S michel 24 - year-old male with?0 c hildren. 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 SM TIS is?2 weeks. 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 Suicidal Thoughts Patient developed more complaints about his mental health each day during his visit. What started as depression and anxiety culminated in thoughts of wanting to harm himseld by day of discharge. Psychiatry evaluated patient determined him not to be safety risk to himself or others at this time, and safe for outpatient f/u at [facility] Wednesday morning at 8:30AM. He has no mental health history. 2. H eat I njury M et criteria for heat illness by e levated core temperature to 102.5F after ice sheets, normal mental status w/o LOC, and evidence of end-organ effects to liver (modest elevations in bili and LFTs). Lactic acidosis was present at time of admission also that shortly resolved after fluids.?Attributable in part to his COVID+ status, reported dehydration, and lack of AC in barr[place]. Patient responded well to IVF and by day 2 was transitioned to PO intake. He d isplayed nearly 4L of urine output his second day, and continued to make large amounts of urine on day of discharge. His liver enzymes remained mildly elevated but stable, never displaying any abnormalities in coags. He i s safe f or discharge with outpatient f/u at [facility] for repeat labs 3. R habdomyolysis C K 16,823 on presentation with myalgias in upper and lower extremities. No KRIS at time of admission. N o signs of compartment syndrome. H is CK remained elevated his second day but was downtrending x 3 in a row on q6h labs by time of discharge. Safe for dc with close outpatient f/u at [facility] 4. U pper respiratory infection caused by COVID-19 Patient's 1 week respiratory symptoms, were attributed to COVID-19 this stay. Prior to differentiating his illness he received 1 dose of Rocephin. H e was negative for flu, h ad an X R without focal or diffuse consolidations, clear lungs on exam, and d id not develop a significant leukocytosis this stay. He required no supplemental oxygen either. Patient is safe for discharge with 5 days of quarters and an additional 5 days of wearing a mask. -Tessalon Perles -Ibuprofen 5. Dental caries Patient complained of frontal maxillary tooth pain this stay. Noted to have cavities. Recommend f/u with dentist outpatient 6.External Hemorrhoid Patient symptomatic for hemorrhoids this stay. A 1cm external hemorrhoid was noted on physical exam. He was started on Miralax BID and experienced relief with this treatment. On day of discharge endorsed having painless BM. -Miralax BID Plan of care was discussed with and approved by attending physician, Dr. Giancarlo Reardon MD [facility], Family Medicine PGY-2 I attest to the accuracy of this note as to history, physical examination, and medical decision-making with any exceptions or corrections noted. I independently performed or re-performed the physical examination on the date of the encounter. Mary Anthony MD [facility], , [facility] Physician Scribe, PGY-3 [facility] Addendum by JUAN J MONDRAGON DO on May 20, 2024 13:49:02 EDT I have reviewed the above note, performed an exam myself on the patient above, discussed plan of care with the inpatient team and the house staff and agree with the note as written above with the following addition: patient was awake alert and denied SI/SH at time of discharge and has outpatient follow-up scheduled to meet with behavioral health on Wednesday. Profile placed for heat injury and to follow-up with [facility]. ---- Signed/written by: Juan J Mondragon DO, [facility], [facility] Primary Care Sports Medicine K[facility] Smith Extracted from:Title: Education Note Author: JUAN MIGUEL KOENIG Date: 03/14/24 Extracted from:Title: Education Note Author: LIBERTY JUAN MIGUEL Date: 02/25/24 Diagnostic Tests PendingDNA Repository Sample DVRDNA 13830 05/10/24 Future Scheduled TestsLaboratoryProlactin Level 11/23/24Hemoglobin A1c 11/23/24Comprehensive Metabolic Panel 11/23/24 04/10/2025 [id number] Assessment and Plan Extracted from:Title : [facility] SHPP Follow-Up #2 Author: Kellie Coronado, GARB[employer] PICK UP MAN, Social Work Date: 12/01/24 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 LAUREN reports he arrived at [facility] [employer] on [id number] for BCT. LAUREN reports he has been a hold over and not training since [id number] due to chest pain. LAUREN also reports he refused to train. LAUREN completed his chapter separation physical on [id number]. 1. O ther physical and mental strain related to work Symptoms reported by LAUREN appear to be secondary to the current stress of being from his family and of being immersed in the [employer] culture. LAUREN is in a high stress environment accompanied by significant transition and current presenting symptoms will likely naturally resolve on their own over time. [1] LAUREN presentation does not currently indicate primary DSM5 diagnosis. Prognosis: Fair Benefits, Risks, Alternatives Discussed: Yes Treatment Plan: Continue current medications, Encourage balanced diet, Exercise 4-5 times / week, Practice good sleep hygiene, Continue current psychotherapy Number of Visits Expected: 4-8 Target Symptoms: Anxiety Goals of Treatment: Improve overall functioning, Decrease in target symptoms Methods of Monitoring Outcomes: Reduced CSSRS score, Reduced CECI-7 score, Reduced PHQ-9 score Evaluation Type: By complexity Objectives of Treatment #1: Reduce overall frequency, intensity, and duration of the anxiety so that daily functioning is not impaired, enhances the ability to cope with the full variety of life’s anxieties effectively. Decrease GAD7 by 50%. Initial score 20, current score 20 Goals of Treatment #1: Other: I want to decrease my anxiety Interventions of Treatment #1: CBT Objective #1 Goal Status: Revised Objective #1 Start Date: 11/01/24 Objective #1 Review Date: 11/15/24 Objective #1 Anticipated Completion Date: 12/01/24 Objective #1 Date Met: 12/01/24 Objective #1 Comment: Although SM's BHDP GAD7 indicates 20, this is incongruent with presentation and actual report of symptoms. Concern for over-reporting for perceived secondary gain as SM has asked multiple times about applying for VA benefits Objectives of Treatment #2: Decrease feelings of hopelessness, increase self-esteem, increase healthy coping skills, return to previous highest level of functioning. Goal to decrease CSSRS to 0. Initial score with this provider was 1, current score 1 for mobid ideation, denies SI. Goals of Treatment #2: Decreased suicide risk factors Interventions of Treatment #2: CBT, Safety Planning Objective #2 Goal Status: Goal met Objective #2 Start Date: 11/01/24 Objective #2 Review Date: 11/15/24 Objective #2 Anticipated Completion Date: 11/23/24 Objective #2 Date Met: 11/23/24 Treatment Planning Requirements: 1) Developed treatment plan collaboratively with patient, with agreement on plan of care and goals, 2) Patient agrees to attend appointments, engage in treatment, discuss any concerns in order to meet treatment goals, 3) Provider will leverage patient strengths and limit potential barriers to treatment Extracted from:Title: Seperation Physical Author: SARAHY BONILLA, UNIT AIDE, Family Medicine Date: 11/29/24 1. E ncounter for general adult medical examination without abnormal findings DD Form 2697 and 689 complete. Medically c leared for separation Counseled S M to avoid, drugs, alcohol and tobacco use. Counseled SM to maintain a healthy diet / low in sweets and high fat foods. Counseled SM on using seat belts / do not text and drive. Counseled SM on safe sex and STD prevention. Counseled SM to engage in physical activity at least one hour per day. SM verbalized understanding. 2. A dministrative reason for encounter see above. Portions of this encounter were generated with voice recognition software. T here may be typographical and/or grammatical inaccuracies in business process manager. 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 LAUREN reports he arrived at [facility] on 10MAY2024 for BCT. LAUREN reports he has been a hold over and not training since 21JUL2024 due to chest pain. LAUREN also reports he refused to train. LAUREN is now pending a Chapter 11 separation. 1. O ther physical and mental strain related to work Symptoms reported by LAUREN appear to be secondary to the current stress of being from his family and of being immersed in the [employer] culture. LAUREN is in a high stress environment accompanied by significant transition and current presenting symptoms will likely naturally resolve on their own over time. [1] Prognosis: Fair Benefits, Risks, Alternatives Discussed: Yes Treatment Plan: Continue current medications, Encourage balanced diet, Exercise 4-5 times / week, Practice good sleep hygiene, Continue current psychotherapy Number of Visits Expected: 4-8 Target Symptoms: Anxiety Goals of Treatment: Improve overall functioning, Decrease in target symptoms Methods of Monitoring Outcomes: Reduced CSSRS score, Reduced CECI-7 score, Reduced PHQ-9 score Evaluation Type: By complexity Objectives of Treatment #1: Reduce overall frequency, intensity, and duration of the anxiety so that daily functioning is not impaired, enhances the ability to cope with the full variety of life’s anxieties effectively. Decrease GAD7 by 50%. Initial score 20, current score 20 Goals of Treatment #1: Other: I want to decrease my anxiety Interventions of Treatment #1: CBT Objective #1 Goal Status: Progressing, continue Objective #1 Start Date: 11/01/24 Objective #1 Review Date: 11/15/24 Objective #1 Anticipated Completion Date: 12/01/24 Objectives of Treatment #2: Decrease feelings of hopelessness, increase self-esteem, increase healthy coping skills, return to previous highest level of functioning. Goal to decrease CSSRS to 0. Initial score with this provider was 1, current score 0. Goals of Treatment #2: Decreased suicide risk factors Interventions of Treatment #2: CBT, Safety Planning Objective #2 Goal Status: Goal met Objective #2 Start Date: 11/01/24 Objective #2 Review Date: 11/15/24 Objective #2 Anticipated Completion Date: 11/23/24 Objective #2 Date Met: 11/23/24 Treatment Planning Requirements: 1) Developed treatment plan collaboratively with patient, with agreement on plan of care and goals, 2) Patient agrees to attend appointments, engage in treatment, discuss any concerns in order to meet treatment goals, 3) Provider will leverage patient strengths and limit potential barriers to treatment Extracted from:Title: [facility] *Psychiatrist OP Follow Up Note Author: HUGO ELIZABETH NP, Psychiatry Date: 11/23/24 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 LAUREN reports he arrived at [facility] [employer] on 10MAY2024 for BCT. SM reports he has been a hold over and not training since 21JUL2024 due to chest pain. SM also reports he refused to train. [2] Contacted who was out at the range. Went to unit and no one was on CTA to verify medication dose. Discussed reducing to a half tab of the large white pill (which causes the eye pain) as a trial until Wednesday, O will follow up in foot print with trainee. He currently denies any SI.HI AVH. He attended group on thinking traps; homework given to assess for being stuck in a thinking trap when hallucinations/ self doubt present. [4] Problems of adjustment to life-cycle transitions Ordered: Comprehensive Metabolic Panel Prolactin Level Prognosis: Fair Benefits, Risks, Alternatives Discussed: Yes Benefits, Risks, SE Comments: Treatment plan will be completed by assigned provider. Today s encounter was a walk-in session. Treatment Plan: Continue current medications, Encourage balanced diet, Exercise 4-5 times / week, Practice good sleep hygiene, Continue current psychotherapy Number of Visits Expected: 4-8 Target Symptoms: Anxiety Goals of Treatment: Improve overall functioning, Decrease in target symptoms Evaluation Type: By complexity Objectives of Treatment #1: Reduce overall frequency, intensity, and duration of the anxiety so that daily functioning is not impaired, enhances the ability to cope with the full variety of life’s anxieties effectively. Decrease GAD7 by 50%. Initial score 20 Goals of Treatment #1: Other: I want to decrease my anxiety Interventions of Treatment #1: CBT Objective #1 Goal Status: Initial Objective #1 Start Date: 11/01/24 Objective #1 Review Date: 11/15/24 Objective #1 Anticipated Completion Date: 11/22/24 Objectives of Treatment #2: Decrease feelings of hopelessness, increase self-esteem, increase healthy coping skills, return to previous highest level of functioning. Decrease CSSRS to 0. Current score 1. SM verbally denies any history of suicide behaviors. Goals of Treatment #2: Decreased suicide risk factors Interventions of Treatment #2: CBT, Safety Planning Objective #2 Goal Status: Initial Objective #2 Start Date: 11/01/24 Objective #2 Review Date: 11/15/24 Objective #2 Anticipated Completion Date: 11/22/24 Treatment Planning Requirements: 1) Developed treatment plan collaboratively with patient, with agreement on plan of care and goals, 2) Patient agrees to attend appointments, engage in treatment, discuss any concerns in order to meet treatment goals, 3) Provider will leverage patient strengths and limit potential barriers to treatment Extracted from:Title: [facility] *Psychiatrist OP Follow Up Note Author: HUGO ELIZABETH NP, Psychiatry Date: 11/09/24 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 reports he arrived at [facility] [employer] on 10MAY2024 for BCT. reports he has been a hold over and not training since 21JUL2024 due to chest pain. also reports he refused to train. [2] Contacted who was out at the range. Went to unit and no one was on CTA to verify medication dose. Discussed reducing to a half tab of the large white pill (which causes the eye pain) as a trial until Wednesday, [facility] will follow up in foot print with trainee. He currently denies any SI.HI AVH. He attended group on thinking traps; homework given to assess for being stuck in a thinking trap when hallucinations/ self doubt present. Problems of adjustment to life-cycle transitions Prognosis: Fair Benefits, Risks, Alternatives Discussed: Yes Benefits, Risks, SE Comments: Treatment plan will be completed by assigned provider. Today s encounter was a walk-in session. Treatment Plan: Continue current medications, Encourage balanced diet, Exercise 4-5 times / week, Practice good sleep hygiene, Continue current psychotherapy Number of Visits Expected: 4-8 Target Symptoms: Anxiety Goals of Treatment: Improve overall functioning, Decrease in target symptoms Evaluation Type: By complexity Objectives of Treatment #1: Reduce overall frequency, intensity, and duration of the anxiety so that daily functioning is not impaired, enhances the ability to cope with the full variety of life’s anxieties effectively. Decrease GAD7 by 50%. Initial score 20 Goals of Treatment #1: Other: I want to decrease my anxiety Interventions of Treatment #1: CBT Objective #1 Goal Status: Initial Objective #1 Start Date: 11/01/24 Objective #1 Review Date: 11/15/24 Objective #1 Anticipated Completion Date: 11/22/24 Objectives of Treatment #2: Decrease feelings of hopelessness, increase self-esteem, increase healthy coping skills, return to previous highest level of functioning. Decrease CSSRS to 0. Current score 1. SM verbally denies any history of suicide behaviors. Goals of Treatment #2: Decreased suicide risk factors Interventions of Treatment #2: CBT, Safety Planning Objective #2 Goal Status: Initial Objective #2 Start Date: 11/01/24 Objective #2 Review Date: 11/15/24 Objective #2 Anticipated Completion Date: 11/22/24 Treatment Planning Requirements: 1) Developed treatment plan collaboratively with patient, with agreement on plan of care and goals, 2) Patient agrees to attend appointments, engage in treatment, discuss any concerns in order to meet treatment goals, 3) Provider will leverage patient strengths and limit potential barriers to treatment Extracted from:Title: [facility] Intake Author: Kellie Coronado LCSW, Social Work Date: 11/01/24 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 LAUREN reports he arrived at [facility] on 10MAY2024 for BCT. LAUREN reports he has been a hold over and not training since 21JUL2024 due to chest pain. LAUREN also reports he refused to train. 1. O ther physical and mental strain related to work S ymptoms reported by LAUREN appear to be secondary to the current stress of being from his family and of being immersed in the [employer] culture. LAUREN is in a high stress environment accompanied by significant transition and current presenting symptoms will likely naturally resolve on their own over time. Prognosis: Fair Benefits, Risks, Alternatives Discussed: Yes Treatment Plan: Encourage balanced diet, Exercise 4-5 times / week, Practice good sleep hygiene, Continue current psychotherapy Number of Visits Expected: 4-8 Target Symptoms: Anxiety Evaluation Type: By complexity Objectives of Treatment #1: Reduce overall frequency, intensity, and duration of the anxiety so that daily functioning is not impaired, enhances the ability to cope with the full variety of life’s anxieties effectively. Decrease GAD7 by 50%. Initial score 20 Goals of Treatment #1: Other: I want to decrease my anxiety Interventions of Treatment #1: CBT Objective #1 Goal Status: Initial Objective #1 Start Date: 11/01/24 Objective #1 Review Date: 11/15/24 Objective #1 Anticipated Completion Date: 11/22/24 Objectives of Treatment #2: Decrease feelings of hopelessness, increase self-esteem, increase healthy coping skills, return to previous highest level of functioning. Decrease CSSRS to 0. Current score 1. SM verbally denies any history of suicide behaviors. Goals of Treatment #2: Decreased suicide risk factors Interventions of Treatment #2: CBT, Safety Planning Objective #2 Goal Status: Initial Objective #2 Start Date: 11/01/24 Objective #2 Review Date: 11/15/24 Objective #2 Anticipated Completion Date: 11/22/24 Treatment Planning Requirements: 1) Developed treatment plan collaboratively with patient, with agreement on plan of care and goals, 2) Patient agrees to attend appointments, engage in treatment, discuss any concerns in order to meet treatment goals, 3) Provider will leverage patient strengths and limit potential barriers to treatment Extracted from:Title: [facility] Author: LUCÍA AUSTIN Date: 10/23/24 SM is S michel/24 y rs. o ld/ / Male/[employer]/PVT-E2/Unit: D /RN: 420/MOS:25H/TIS:SM arrived at [place], [place] o n [id number]. SM is currently a holdover for recycle or separation. V62.89 (Z60.0) ?Phase of Life Problem sm is a hold over which has added stress to his current situation Benefits, Risks, SE Comments: Treatment plan will be completed by assigned provider. Today s encounter was a walk-in session. Extracted from:Title: F/U Er Author: SARAHY BONILLA, UNIT AIDE, Family Medicine Date: 10/23/24 1. C hest pain P T reports was cleared from cardiology. Was seen over HBL with civilian Cardio and advised that we need to collect records to add to medical records so that we can medically clear for RTD. Denies AWAD, chest pain, SHOB. Reports all symptoms have resolved and they believe to be cardio in nature. Advised to walk in with Ms. Garces at [place] to assist in getting records and for CM follow up. PT given packet to be able to request records. PT to report back to [facility] once records received. Patient agrees with plan and verbalized understanding 2. A nxiety P t to walk in to [facility] due to recent hospital encounter to discuss current concerns and as well discuss getting cleared to RTD. Reports they started him on medication, but he does not know the medication and that he never started it. Reports some anxiety b ut is feeling okay. He is optimistic about going to [facility] to recycle and continue with BCT. Portions of this encounter were generated with voice recognition software. T here may be typographical and/or grammatical inaccuracies in business process manager. REINIER Arroyo-C/AMNCesar CPT, AN B DE, 2 IN BN Surgeon KITTY Cantu Extracted from:Title: Admin-Cardio [facility] f/u Discussion Author: SARAHY BONILLA NP Date: 08/29/24 1. C hest pain Cardio APT note reviewed. Referral was placed. Will assist in scheduling outside APT and getting records faxed-Reached out to CM Ms. Garces at [facility] for assistance. PT to be notified when APT date and time scheduled. Discussed will do our best to get completed prior to HBL, but this may have to occur after. Denies any current headaches, chest pain, SHOB, or palpitations. ER precautions advised. Patient agrees with plan and verbalized understanding. Medications Reconcilled. Portions of this encounter were generated with voice recognition software. T here may be typographical and/or grammatical inaccuracies in business process manager. REINIER Arroyo-C/AMNP CPT, AN B DE, 2 IN BN Surgeon KITTY Cantu Extracted from:Title: [facility] Internal Medicine Consult - Chest Pain Author: FERNANDO ROMERO MD Date: 08/22/24 1. C hest pain Possibly c ardiac chest pain ( per ACC/AHA c hest pain guideline definition) w ith?clinically positive e xercise stress test. All other e valuation has been negative including CBC, resting EKG, n oncontrast CT, T TE, PFTs. Warrants further evaluation with m yocardial perfusion scan. Plan: -Referral for MPS placed - will be referred out to civilian facility, since [facility] does not have the capabilities currently -cc'ing r eferring provider f or their awareness -Present to ED if symptoms do not resolve or acutely worsen MD Shantal Wisemanain, [employer], [facility] Staff Psychiatrist and Law Firm Partner [facility] KITTY Cantu Extracted from:Title: Admin Discussion Author: SARAHY BONILLA NP Date: 08/02/24 1. C hest pain on exertion Denies any chest pain or SHOB. He reports his condition as improved. Educated on cardio referral due to GXT. I am glad your symptoms have resolved but will be unable to complete CH 11 physical until you have your APT with cardiology and they medically clear you from any further evaluation or treatment. Pending cardio referral at [facility]. Once apt is scheduled will notify yourself as well as command team. Depending on how that APT goes we can either medically clear you for separation or you may be here a little longer until further evaluation has been completed. Patient agrees with plan and verbalized understanding. Patient's medications reviewed for polypharmacy, drug interactions, and drug allergies and are reconciliated at this time. Patient implied understanding of provider's instructions and agrees to comply with treatment plan. Portions of this encounter were generated with voice recognition software. T here may be typographical and/or grammatical inaccuracies in business process manager. MANNY ArroyoP-C/MAX CPT, [address], IN BN Surgeon KITTY Cantu Extracted from:Title: Cardio Referral Author: SARAHY BONILLA NP Date: 07/28/24 1. 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 Reported tingling to fingers when this occurs and feels SHOB. Trainee has no previous cardiac history, normal cardiopulmonary exam. PT hx of rhabdo and heat exhaustion end of April as well as pneumonia/covid mid May. SHOB has resolved but has continued with chest pain on exertion. Chest XR was completed with no findings, PFT was completed with normal findings. CT of chest completed 07/27/[address] resulted. Echocardiogram completed 07/26/24 with results showing normal echocardiographic study with no sonographic evidence of significant functional, structural, or valvular heart disease. PT completed GXT 07/26/24 with Overall Impression: Positive stress test suggestive of ischemia. Conclusion: Electrically negative, clinically positive test. DTS of 1 indicates moderate risk. Recommend further testing with MPS. Referral placed. PT aware when APT made will notify PT and command. Meds Reconciled. Patient agrees with plan and verbalized understanding. Ordered: Referral Request 2.0 - DoD 2. C ardiovascular stress test abnormal see above. Ordered: Referral Request 2.0 - DoD Portions of this encounter were generated with voice recognition software. T here may be typographical and/or grammatical inaccuracies in business process manager. JANENE Arroyo/MAX CPT, [address], 2 [place], [place] Extracted from:Title: 2-47 Admin Author: SARAHY BONILLA NP Date: 07/06/24 1. C hest pain on exertion Encounter for EKG only. please see previous note for full exam and note. Congestion of mucosa Encounter for EKG only. please see previous note for full exam and note. Cough Encounter for EKG only. please see previous note for full exam and note. Portions of this encounter were generated with voice recognition software. T here may be typographical and/or grammatical inaccuracies in business process manager. NGOZI ArroyoC/AMNCesar CPT, AN B DE, [place], [place] Extracted from:Title: 247 Near Syncope/Chest Pain on Exertion/Congestion Author: SARAHY BONILLA NP Date: 07/06/24 1. N ear syncope These events have been unwitnessed and denies telling the DS regarding the symptoms he was having.? Reports tingling to fingers when this occurs and feels SHOB. Trainee has no previous cardiac history, normal cardiopulmonary exam. PT hx of rhabdo and heat exhaustion end of April as well as pnemonia/covid mid May. He continued with SHOB with exertion and chest XR was completed with no findings, PFT was completed with normal findings as well. He reports he thought it was SHOB but he feels it is more the exhaustion and fatigue causing him to want to pass out. Would like to get cardiac stress test to rule out any cardiovascular involvement. EKG completed 06/30/24 showing NSR and no concerns. CBC, CMP, CK, Amylase, Lipase, TSH ordered with no immediate concerning findings. Pt does have low vit d. will have trainee follow up and vit d started. P atient agrees with plan and verbalized understanding. Patient's medications reviewed for polypharmacy, drug interactions, and drug allergies and are reconciliated at this time. Patient implied understanding of provider's instructions and agrees to comply with treatment plan. 2. C hest pain on exertion Pain in chest/heart every heartbeat concerns x1 day. LAUREN was seen previously 1 week ago for lethargy when exercising and discussion of a profile. LAUREN was set up a GXT a ppointment and requested to F/U if he has not heard any information in regards to the appointment. LAUREN states he has not and is also visiting sick call due to chest/heart pain every heartbeat as he states. 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 Symptoms include heart/chest pain every heartbeat and r andom n umbness in fingers. Fast movement, cardio provokes chest pain. Quality of pain is stabbing. Pain does not radiate, stays at chest area where heart is located. 6/10 pain. LAUREN has not attempted any sort of self-treatment for his symptoms. SM feels that his overall condition i s getting worse. Rate wnl Intervals wnl rhythm sinus SQ no elevation or depression No axis deviation -CBC, CMP, CK, Amylase, Lipase, TSH ordered with no immediate concerning findings. -Will move forward with cardiac stress test at this time. Denies any cardiac history and this is the first time he has brought up symptoms. -Placed on no training profile at this time. 689 given and company aware. Once APT scheduled will contact company and trainee. ER precautions advised for worsening symptoms or generalized feeling that something is not right. 3. C ongestion of mucosa Due to ongoing cough/congestion with new onset of fatigue and f/u chest XR still unremarkable will move forward with Chest CT without contrast at this time. Order placed. Once schedule will notify of APT date and time. See Referral order comments. ER precautions advised. Patient agrees with plan and verbalized understanding. 4. C ough see above. Portions of this encounter were generated with voice recognition software. T here may be typographical and/or grammatical inaccuracies in business process manager. Sarahy Bonilla, CELL BIOLOGY SCIENTIST-C/AMNP CPT, [address], IN BN Surgeon [facility] [place] Extracted from:Title: Near Syncope/Fatigue Author: SARAHY BONILLA NP Date: 07/03/24 1. N ear syncope Reports that he has not had any LOC, but any time he exerts himself too much physically he gets really tired. He was not working out prior to coming to [facility] and we did discuss that if he is out of shape and then coming here with the physical exertion demands along with the heat this is going to cause him to fatigue easily. Discussed weight loss and how this can be beneficial, but also time to get his body into better shape. He has been a heat causality before so this is going to increase his change of having another one. Had PFT testing completed and results came back normal. Discussed that this most likely is not cardiac in nature but would be best to get a cardiac stress test to ensure this is not contributing. Will also repeat labs today as well for review. Consult submitted- Will reach out to Ms. Garces to assist with scheduling assistance. 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 Reports tingling to fingers when this occurs and feels SHOB. Trainee has no previous cardiac history, normal cardiopulmonary exam. PT hx of rhabdo and heat exhaustion end of April as well as pneumonia/covid mid May. He continued with SHOB with exertion and chest XR was completed with no findings, PFT was completed with normal findings as well. He reports he thought it was SHOB but he feels it is more the exhaustion and fatigue causing him to want to pass out. Would like to get cardiac stress test to rule out any cardiovascular involvement. EKG completed 06/30/24 showing NSR and no concerns. Please complete Cardiac Stress test. Er precautions advised. Follow up in one week if not heard about GXT APT. Patient's medications reviewed for polypharmacy, drug interactions, and drug allergies and are reconciliated at this time. Patient implied understanding of provider's instructions and agrees to comply with treatment plan. Patient agrees with plan and verbalized understanding. Ordered: CBC w/ Diff Comprehensive Metabolic Panel Creatine Kinase Urinalysis with Microscopic and Culture if Indicated 2. F atigue see above. Orders: *Differential Automated *Glomerular Filtration Rate, Estimated Portions of this encounter were generated with voice recognition software. T here may be typographical and/or grammatical inaccuracies in business process manager. Sarahy Bonilla, CELL BIOLOGY SCIENTIST-C/AMNP CPT, [address], 2-47 [place] Surgeon KITTY Cantu Extracted from:Title: Follow up Near syncope-[facility] Author: SUZETTE JENNINGS PA Date: 06/30/24 1. N ear syncope VS stable. Neuro intact. Lung exam clear. No evidence of heat exhaustion/rhabdomyolysis. EKG pending official read by Dr. Ekta bragg nd CXR unremarkable. Will place e profile today for no physical training, 3 copies given to . PFT's results reviewed today; normal spirometry. Will consider further cardiac work up. Meds reconciled. Stay hydrated. ER precautions given. RTC/BN aid station Wednesday. SM verbalizes understanding of these specific instructions. 2. E ncounter for follow-up examination after completed treatment for conditions other than malignant neoplasm Repeat UA with resolved proteinuria. Results reviewed with and all questions have been answered. SM verbalizes understanding. Suzette Purvis [facility] KITTY Garcia Extracted from:Title: SHPP TRIAGE NOTE #1 Author: JEREL MIRANDA Date: 05/22/24 This appointment is not deployment related. SM is Active, a S michel 24 - year-old male with?0 c hildren. 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 SM TIS is?2 weeks. 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 Suicidal Thoughts Patient developed more complaints about his mental health each day during his visit. What started as depression and anxiety culminated in thoughts of wanting to harm himseld by day of discharge. Psychiatry evaluated patient determined him not to be safety risk to himself or others at this time, and safe for outpatient f/u at [facility] Wednesday morning at 8:30AM. He has no mental health history. 2. H eat I njury M et criteria for heat illness by e levated core temperature to 102.5F after ice sheets, normal mental status w/o LOC, and evidence of end-organ effects to liver (modest elevations in bili and LFTs). Lactic acidosis was present at time of admission also that shortly resolved after fluids.?Attributable in part to his COVID+ status, reported dehydration, and lack of AC in [place]. Patient responded well to IVF and by day 2 was transitioned to PO intake. He d isplayed nearly 4L of urine output his second day, and continued to make large amounts of urine on day of discharge. His liver enzymes remained mildly elevated but stable, never displaying any abnormalities in coags. He i s safe f or discharge with outpatient f/u at [facility] for repeat labs 3. R habdomyolysis C K 16,823 on presentation with myalgias in upper and lower extremities. No KRIS at time of admission. N o signs of compartment syndrome. H is CK remained elevated his second day but was downtrending x 3 in a row on q6h labs by time of discharge. Safe for dc with close outpatient f/u at [facility] 4. U pper respiratory infection caused by COVID-19 Patient's 1 week respiratory symptoms, were attributed to COVID-19 this stay. Prior to differentiating his illness he received 1 dose of Rocephin. H e was negative for flu, h ad an X R without focal or diffuse consolidations, clear lungs on exam, and d id not develop a significant leukocytosis this stay. He required no supplemental oxygen either. Patient is safe for discharge with 5 days of quarters and an additional 5 days of wearing a mask. -Tessalon Perles -Ibuprofen 5. Dental caries Patient complained of frontal maxillary tooth pain this stay. Noted to have cavities. Recommend f/u with dentist outpatient 6.External Hemorrhoid Patient symptomatic for hemorrhoids this stay. A 1cm external hemorrhoid was noted on physical exam. He was started on Miralax BID and experienced relief with this treatment. On day of discharge endorsed having painless BM. -Miralax BID Plan of care was discussed with and approved by attending physician, Dr. Giancarlo Reardon MD [facility], Family Medicine PGY-2 I attest to the accuracy of this note as to history, physical examination, and medical decision-making with any exceptions or corrections noted. I independently performed or re-performed the physical examination on the date of the encounter. Mary Anthony MD [facility], , [facility] Physician Scribe, PGY-3 [facility] Addendum by JUAN J MONDRAGON DO on May 20, 2024 13:49:02 EDT I have reviewed the above note, performed an exam myself on the patient above, discussed plan of care with the inpatient team and the house staff and agree with the note as written above with the following addition: patient was awake alert and denied SI/SH at time of discharge and has outpatient follow-up scheduled to meet with behavioral health on Wednesday. Profile placed for heat injury and to follow-up with [facility]. ---- Signed/written by: Juan J Mondragon DO, [facility], [facility] Primary Care Sports Medicine P KITTY Kilpatrick Extracted from:Title: Education Note Author: JUAN MIGUEL KOENIG Date: 03/14/24 Extracted from:Title: Education Note Author: JUAN MIGUEL KOENIG Date: 02/25/24 Diagnostic Tests PendingDNA Repository Sample DVRDNA [id number] 05/10/24 Future Scheduled TestsLaboratoryProlactin Level 11/23/24Hemoglobin A1c 11/23/24Comprehensive Metabolic Panel 11/23/24 04/10/2025 8815-[facility] Assessment and Plan Extracted from:Title : BEH SHPP Follow-Up #2 Author: Kellie Coronado, GARBAGE PICK UP MAN, Social Work Date: 12/01/24 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 LAUREN reports he arrived at [facility] [employer] on 10MAY2024 for BCT. LAUREN reports he has been a hold over and not training since 21JUL2024 due to chest pain. LAUREN also reports he refused to train. LAUREN completed his chapter separation physical on [id number]. 1. O ther physical and mental strain related to work Symptoms reported by LAUREN appear to be secondary to the current stress of being from his family and of being immersed in the [employer] culture. LAUREN is in a high stress environment accompanied by significant transition and current presenting symptoms will likely naturally resolve on their own over time. [1] LAUREN presentation does not currently indicate primary DSM5 diagnosis. Prognosis: Fair Benefits, Risks, Alternatives Discussed: Yes Treatment Plan: Continue current medications, Encourage balanced diet, Exercise 4-5 times / week, Practice good sleep hygiene, Continue current psychotherapy Number of Visits Expected: 4-8 Target Symptoms: Anxiety Goals of Treatment: Improve overall functioning, Decrease in target symptoms Methods of Monitoring Outcomes: Reduced CSSRS score, Reduced CECI-7 score, Reduced PHQ-9 score Evaluation Type: By complexity Objectives of Treatment #1: Reduce overall frequency, intensity, and duration of the anxiety so that daily functioning is not impaired, enhances the ability to cope with the full variety of life’s anxieties effectively. Decrease GAD7 by 50%. Initial score 20, current score 20 Goals of Treatment #1: Other: I want to decrease my anxiety Interventions of Treatment #1: CBT Objective #1 Goal Status: Revised Objective #1 Start Date: 11/01/24 Objective #1 Review Date: 11/15/24 Objective #1 Anticipated Completion Date: 12/01/24 Objective #1 Date Met: 12/01/24 Objective #1 Comment: Although LAUREN's DP GAD7 indicates 20, this is incongruent with presentation and actual report of symptoms. Concern for over-reporting for perceived secondary gain as LAUREN has asked multiple times about applying for VA benefits Objectives of Treatment #2: Decrease feelings of hopelessness, increase self-esteem, increase healthy coping skills, return to previous highest level of functioning. Goal to decrease CSSRS to 0. Initial score with this provider was 1, current score 1 for mobyuliya ideation, denies SI. Goals of Treatment #2: Decreased suicide risk factors Interventions of Treatment #2: CBT, Safety Planning Objective #2 Goal Status: Goal met Objective #2 Start Date: 11/01/24 Objective #2 Review Date: 11/15/24 Objective #2 Anticipated Completion Date: 11/23/24 Objective #2 Date Met: 11/23/24 Treatment Planning Requirements: 1) Developed treatment plan collaboratively with patient, with agreement on plan of care and goals, 2) Patient agrees to attend appointments, engage in treatment, discuss any concerns in order to meet treatment goals, 3) Provider will leverage patient strengths and limit potential barriers to treatment Extracted from:Title: Seperation Physical Author: SARAHY BONILLA UNIT AIDE, Family Medicine Date: 11/29/24 1. E ncounter for general adult medical examination without abnormal findings DD Form 2697 and 689 complete. Medically c leared for separation Counseled S M to avoid, drugs, alcohol and tobacco use. Counseled SM to maintain a healthy diet / low in sweets and high fat foods. Counseled SM on using seat belts / do not text and drive. Counseled SM on safe sex and STD prevention. Counseled SM to engage in physical activity at least one hour per day. SM verbalized understanding. 2. A dministrative reason for encounter see above. Portions of this encounter were generated with voice recognition software. T here may be typographical and/or grammatical inaccuracies in business process manager. 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 LAUREN reports he arrived at [facility] [employer] on 10MAY2024 for BCT. SM reports he has been a hold over and not training since 21JUL2024 due to chest pain. SM also reports he refused to train. SM is now pending a Chapter 11 separation. 1. O ther physical and mental strain related to work Symptoms reported by LAUREN appear to be secondary to the current stress of being from his family and of being immersed in the [employer] culture. LAUREN is in a high stress environment accompanied by significant transition and current presenting symptoms will likely naturally resolve on their own over time. [1] Prognosis: Fair Benefits, Risks, Alternatives Discussed: Yes Treatment Plan: Continue current medications, Encourage balanced diet, Exercise 4-5 times / week, Practice good sleep hygiene, Continue current psychotherapy Number of Visits Expected: 4-8 Target Symptoms: Anxiety Goals of Treatment: Improve overall functioning, Decrease in target symptoms Methods of Monitoring Outcomes: Reduced CSSRS score, Reduced CECI-7 score, Reduced PHQ-9 score Evaluation Type: By complexity Objectives of Treatment #1: Reduce overall frequency, intensity, and duration of the anxiety so that daily functioning is not impaired, enhances the ability to cope with the full variety of life’s anxieties effectively. Decrease GAD7 by 50%. Initial score 20, current score 20 Goals of Treatment #1: Other: I want to decrease my anxiety Interventions of Treatment #1: CBT Objective #1 Goal Status: Progressing, continue Objective #1 Start Date: 11/01/24 Objective #1 Review Date: 11/15/24 Objective #1 Anticipated Completion Date: 12/01/24 Objectives of Treatment #2: Decrease feelings of hopelessness, increase self-esteem, increase healthy coping skills, return to previous highest level of functioning. Goal to decrease CSSRS to 0. Initial score with this provider was 1, current score 0. Goals of Treatment #2: Decreased suicide risk factors Interventions of Treatment #2: CBT, Safety Planning Objective #2 Goal Status: Goal met Objective #2 Start Date: 11/01/24 Objective #2 Review Date: 11/15/24 Objective #2 Anticipated Completion Date: 11/23/24 Objective #2 Date Met: 11/23/24 Treatment Planning Requirements: 1) Developed treatment plan collaboratively with patient, with agreement on plan of care and goals, 2) Patient agrees to attend appointments, engage in treatment, discuss any concerns in order to meet treatment goals, 3) Provider will leverage patient strengths and limit potential barriers to treatment Extracted from:Title: BEH *Psychiatrist OP Follow Up Note Author: HUGO ELIZABETH NP, Psychiatry Date: 11/23/24 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 SM reports he arrived at [facility] [employer] on 10MAY2024 for BCT. SM reports he has been a hold over and not training since 21JUL2024 due to chest pain. SM also reports he refused to train. [2] Contacted CQ who was out at the range. Went to unit and no one was on CTA to verify medication dose. Discussed reducing to a half tab of the large white pill (which causes the eye pain) as a trial until Wednesday, O will follow up in foot print with trainee. He currently denies any SI.HI AVH. He attended group on thinking traps; homework given to assess for being stuck in a thinking trap when hallucinations/ self doubt present. [4] Problems of adjustment to life-cycle transitions Ordered: Comprehensive Metabolic Panel Prolactin Level Prognosis: Fair Benefits, Risks, Alternatives Discussed: Yes Benefits, Risks, SE Comments: Treatment plan will be completed by assigned provider. Today s encounter was a walk-in session. Treatment Plan: Continue current medications, Encourage balanced diet, Exercise 4-5 times / week, Practice good sleep hygiene, Continue current psychotherapy Number of Visits Expected: 4-8 Target Symptoms: Anxiety Goals of Treatment: Improve overall functioning, Decrease in target symptoms Evaluation Type: By complexity Objectives of Treatment #1: Reduce overall frequency, intensity, and duration of the anxiety so that daily functioning is not impaired, enhances the ability to cope with the full variety of life’s anxieties effectively. Decrease GAD7 by 50%. Initial score 20 Goals of Treatment #1: Other: I want to decrease my anxiety Interventions of Treatment #1: CBT Objective #1 Goal Status: Initial Objective #1 Start Date: 11/01/24 Objective #1 Review Date: 11/15/24 Objective #1 Anticipated Completion Date: 11/22/24 Objectives of Treatment #2: Decrease feelings of hopelessness, increase self-esteem, increase healthy coping skills, return to previous highest level of functioning. Decrease CSSRS to 0. Current score 1. SM verbally denies any history of suicide behaviors. Goals of Treatment #2: Decreased suicide risk factors Interventions of Treatment #2: CBT, Safety Planning Objective #2 Goal Status: Initial Objective #2 Start Date: 11/01/24 Objective #2 Review Date: 11/15/24 Objective #2 Anticipated Completion Date: 11/22/24 Treatment Planning Requirements: 1) Developed treatment plan collaboratively with patient, with agreement on plan of care and goals, 2) Patient agrees to attend appointments, engage in treatment, discuss any concerns in order to meet treatment goals, 3) Provider will leverage patient strengths and limit potential barriers to treatment Extracted from:Title: BEH *Psychiatrist OP Follow Up Note Author: HUGO ELIZABETH NP, Psychiatry Date: 11/09/24 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 LAUREN reports he arrived at [facility] [employer] on 10MAY2024 for BCT. SM reports he has been a hold over and not training since 21JUL2024 due to chest pain. SM also reports he refused to train. [2] Contacted CQ who was out at the range. Went to unit and no one was on CTA to verify medication dose. Discussed reducing to a half tab of the large white pill (which causes the eye pain) as a trial until Wednesday, O will follow up in foot print with trainee. He currently denies any SI.HI AVH. He attended group on thinking traps; homework given to assess for being stuck in a thinking trap when hallucinations/ self doubt present. Problems of adjustment to life-cycle transitions Prognosis: Fair Benefits, Risks, Alternatives Discussed: Yes Benefits, Risks, SE Comments: Treatment plan will be completed by assigned provider. Today s encounter was a walk-in session. Treatment Plan: Continue current medications, Encourage balanced diet, Exercise 4-5 times / week, Practice good sleep hygiene, Continue current psychotherapy Number of Visits Expected: 4-8 Target Symptoms: Anxiety Goals of Treatment: Improve overall functioning, Decrease in target symptoms Evaluation Type: By complexity Objectives of Treatment #1: Reduce overall frequency, intensity, and duration of the anxiety so that daily functioning is not impaired, enhances the ability to cope with the full variety of life’s anxieties effectively. Decrease GAD7 by 50%. Initial score 20 Goals of Treatment #1: Other: I want to decrease my anxiety Interventions of Treatment #1: CBT Objective #1 Goal Status: Initial Objective #1 Start Date: 11/01/24 Objective #1 Review Date: 11/15/24 Objective #1 Anticipated Completion Date: 11/22/24 Objectives of Treatment #2: Decrease feelings of hopelessness, increase self-esteem, increase healthy coping skills, return to previous highest level of functioning. Decrease CSSRS to 0. Current score 1. SM verbally denies any history of suicide behaviors. Goals of Treatment #2: Decreased suicide risk factors Interventions of Treatment #2: CBT, Safety Planning Objective #2 Goal Status: Initial Objective #2 Start Date: 11/01/24 Objective #2 Review Date: 11/15/24 Objective #2 Anticipated Completion Date: 11/22/24 Treatment Planning Requirements: 1) Developed treatment plan collaboratively with patient, with agreement on plan of care and goals, 2) Patient agrees to attend appointments, engage in treatment, discuss any concerns in order to meet treatment goals, 3) Provider will leverage patient strengths and limit potential barriers to treatment Extracted from:Title: BEH SHPP Intake Author: Kellie Coronado GARBAGE PICK UP MAN, Social Work Date: 11/01/24 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 LAUREN reports he arrived at [facility] [employer] on 10MAY2024 for BCT. LAUREN reports he has been a hold over and not training since 21JUL2024 due to chest pain. LAUREN also reports he refused to train. 1. O ther physical and mental strain related to work S ymptoms reported by LAUREN appear to be secondary to the current stress of being from his family and of being immersed in the [employer] culture. LAUREN is in a high stress environment accompanied by significant transition and current presenting symptoms will likely naturally resolve on their own over time. Prognosis: Fair Benefits, Risks, Alternatives Discussed: Yes Treatment Plan: Encourage balanced diet, Exercise 4-5 times / week, Practice good sleep hygiene, Continue current psychotherapy Number of Visits Expected: 4-8 Target Symptoms: Anxiety Evaluation Type: By complexity Objectives of Treatment #1: Reduce overall frequency, intensity, and duration of the anxiety so that daily functioning is not impaired, enhances the ability to cope with the full variety of life’s anxieties effectively. Decrease GAD7 by 50%. Initial score 20 Goals of Treatment #1: Other: I want to decrease my anxiety Interventions of Treatment #1: CBT Objective #1 Goal Status: Initial Objective #1 Start Date: 11/01/24 Objective #1 Review Date: 11/15/24 Objective #1 Anticipated Completion Date: 11/22/24 Objectives of Treatment #2: Decrease feelings of hopelessness, increase self-esteem, increase healthy coping skills, return to previous highest level of functioning. Decrease CSSRS to 0. Current score 1. SM verbally denies any history of suicide behaviors. Goals of Treatment #2: Decreased suicide risk factors Interventions of Treatment #2: CBT, Safety Planning Objective #2 Goal Status: Initial Objective #2 Start Date: 11/01/24 Objective #2 Review Date: 11/15/24 Objective #2 Anticipated Completion Date: 11/22/24 Treatment Planning Requirements: 1) Developed treatment plan collaboratively with patient, with agreement on plan of care and goals, 2) Patient agrees to attend appointments, engage in treatment, discuss any concerns in order to meet treatment goals, 3) Provider will leverage patient strengths and limit potential barriers to treatment Extracted from:Title: [facility] SHPP Walk-In #1 Author: LUCÍA AUSTIN Date: 10/23/24 SM is S michel/24 y rs. o ld/ / Male/[employer]/PVT-E2/Unit: D /RN: 420/MOS:25H/TIS: /SM arrived at [place], [place] o n 1 [id number] B CT. SM is currently a holdover for recycle or separation. V62.89 (Z60.0) ?Phase of Life Problem sm is a hold over which has added stress to his current situation Benefits, Risks, SE Comments: Treatment plan will be completed by assigned provider. Today s encounter was a walk-in session. Extracted from:Title: F/U Er Author: SARAHY BONILLA NP, Family Medicine Date: 10/23/24 1. C hest pain P T reports was cleared from cardiology. Was seen over HBL with civilian Cardio and advised that we need to collect records to add to medical records so that we can medically clear for RTD. Denies AWAD, chest pain, SHOB. Reports all symptoms have resolved and they believe to be cardio in nature. Advised to walk in with Ms. Garces at [place] to assist in getting records and for CM follow up. PT given packet to be able to request records. PT to report back to [facility] once records received. Patient agrees with plan and verbalized understanding 2. A nxiety P t to walk in to [facility] due to recent hospital encounter to discuss current concerns and as well discuss getting cleared to RTD. Reports they started him on medication, but he does not know the medication and that he never started it. Reports some anxiety b ut is feeling okay. He is optimistic about going to [facility] to recycle and continue with BCT. Portions of this encounter were generated with voice recognition software. T here may be typographical and/or grammatical inaccuracies in business process manager. Sarahy Bonilla CELL BIOLOGY SCIENTIST-C/AMNP CPT, AN B [place], IN BN Surgeon KITTY Cantu Extracted from:Title: Admin-Cardio [facility] f/u Discussion Author: SARAHY BONILLA NP Date: 08/29/24 1. C hest pain Cardio APT note reviewed. Referral was placed. Will assist in scheduling outside APT and getting records faxed-Reached out to Ms. Garces at [facility] for assistance. PT to be notified when APT date and time scheduled. Discussed will do our best to get completed prior to HBL, but this may have to occur after. Denies any current headaches, chest pain, SHOB, or palpitations. ER precautions advised. Patient agrees with plan and verbalized understanding. Medications Reconcilled. Portions of this encounter were generated with voice recognition software. T here may be typographical and/or grammatical inaccuracies in business process manager. Sarahy Bonilla CELL BIOLOGY SCIENTIST-C/AMNP CPT, AN B DE, IN BN Surgeon KITTY Cantu Extracted from:Title: [facility] Internal Medicine Consult - Chest Pain Author: FERNANDO ROMERO MD Date: 08/22/24 1. C hest pain Possibly c ardiac chest pain ( per ACC/AHA c hest pain guideline definition) w ith?clinically positive e xercise stress test. All other e valuation has been negative including CBC, resting EKG, n oncontrast CT, T TE, PFTs. Warrants further evaluation with m yocardial perfusion scan. Plan: -Referral for MPS placed - will be referred out to civilian facility, since [facility] does not have the capabilities currently -cc'ing r eferring provider f or their awareness -Present to ED if symptoms do not resolve or acutely worsen MD Shantal Wisemanain, [employer] [facility], [facility] Staff Psychiatrist and Law Firm Partner [facility] [place] Extracted from:Title: 2 Admin Discussion Author: SARAHY BONILLA NP Date: 08/02/24 1. C hest pain on exertion Denies any chest pain or SHOB. He reports his condition as improved. Educated on cardio referral due to GXT. I am glad your symptoms have resolved but will be unable to complete CH 11 physical until you have your APT with cardiology and they medically clear you from any further evaluation or treatment. Pending cardio referral at [facility]. Once apt is scheduled will notify yourself as well as command team. Depending on how that APT goes we can either medically clear you for separation or you may be here a little longer until further evaluation has been completed. Patient agrees with plan and verbalized understanding. Patient's medications reviewed for polypharmacy, drug interactions, and drug allergies and are reconciliated at this time. Patient implied understanding of provider's instructions and agrees to comply with treatment plan. Portions of this encounter were generated with voice recognition software. T here may be typographical and/or grammatical inaccuracies in business process manager. Sarahy Bonilla, CELL BIOLOGY SCIENTIST-C/AMNP CPT, [address], IN BN Surgeon [place] Extracted from:Title: Cardio Referral Author: SARAHY BONILLA NP Date: 07/28/24 1. 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 Reported tingling to fingers when this occurs and feels SHOB. Trainee has no previous cardiac history, normal cardiopulmonary exam. PT hx of rhabdo and heat exhaustion end of April as well as pneumonia/covid mid May. SHOB has resolved but has continued with chest pain on exertion. Chest XR was completed with no findings, PFT was completed with normal findings. CT of chest completed 07/27/[address] resulted. Echocardiogram completed 07/26/24 with results showing normal echocardiographic study with no sonographic evidence of significant functional, structural, or valvular heart disease. PT completed GXT 07/26/24 with Overall Impression: Positive stress test suggestive of ischemia. Conclusion: Electrically negative, clinically positive test. DTS of 1 indicates moderate risk. Recommend further testing with MPS. Referral placed. PT aware when APT made will notify PT and command. Meds Reconciled. Patient agrees with plan and verbalized understanding. Ordered: Referral Request 2.0 - DoD 2. C ardiovascular stress test abnormal see above. Ordered: Referral Request 2.0 - DoD Portions of this encounter were generated with voice recognition software. T here may be typographical and/or grammatical inaccuracies in business process manager. Sarahy Bonilla CELL BIOLOGY SCIENTIST-C/AMNP CPT, [address], 2 IN BN Surgeon [place] Extracted from:Title: 2 Admin Author: SARAHY BONILLA NP Date: 07/06/24 1. C hest pain on exertion Encounter for EKG only. please see previous note for full exam and note. Congestion of mucosa Encounter for EKG only. please see previous note for full exam and note. Cough Encounter for EKG only. please see previous note for full exam and note. Portions of this encounter were generated with voice recognition software. T here may be typographical and/or grammatical inaccuracies in business process manager. REINIER Arroyo-C/AMNP CPT, AN B [place], IN Surgeon [place] Extracted from:Title: Near Syncope/Chest Pain on Exertion/Congestion Author: SARAHY BONILLA NP Date: 07/06/24 1. N ear syncope These events have been unwitnessed and denies telling the DS regarding the symptoms he was having.? Reports tingling to fingers when this occurs and feels SHOB. Trainee has no previous cardiac history, normal cardiopulmonary exam. PT hx of rhabdo and heat exhaustion end of April as well as pnemonia/covid mid May. He continued with SHOB with exertion and chest XR was completed with no findings, PFT was completed with normal findings as well. He reports he thought it was SHOB but he feels it is more the exhaustion and fatigue causing him to want to pass out. Would like to get cardiac stress test to rule out any cardiovascular involvement. EKG completed 06/30/24 showing NSR and no concerns. CBC, CMP, CK, Amylase, Lipase, TSH ordered with no immediate concerning findings. Pt does have low vit d. will have trainee follow up and vit d started. P atient agrees with plan and verbalized understanding. Patient's medications reviewed for polypharmacy, drug interactions, and drug allergies and are reconciliated at this time. Patient implied understanding of provider's instructions and agrees to comply with treatment plan. 2. C hest pain on exertion Pain in chest/heart every heartbeat concerns x1 day. LAUREN was seen previously 1 week ago for lethargy when exercising and discussion of a profile. LAUREN was set up a GXT a ppointment and requested to F/U if he has not heard any information in regards to the appointment. LAUREN states he has not and is also visiting sick call due to chest/heart pain every heartbeat as he states. 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 Symptoms include heart/chest pain every heartbeat and r andom n umbness in fingers. Fast movement, cardio provokes chest pain. Quality of pain is stabbing. Pain does not radiate, stays at chest area where heart is located. 6/10 pain. LAUREN has not attempted any sort of self-treatment for his symptoms. SM feels that his overall condition i s getting worse. Rate wnl Intervals wnl rhythm sinus SQ no elevation or depression No axis deviation -CBC, CMP, CK, Amylase, Lipase, TSH ordered with no immediate concerning findings. -Will move forward with cardiac stress test at this time. Denies any cardiac history and this is the first time he has brought up symptoms. -Placed on no training profile at this time. 689 given and company aware. Once APT scheduled will contact company and trainee. ER precautions advised for worsening symptoms or generalized feeling that something is not right. 3. C ongestion of mucosa Due to ongoing cough/congestion with new onset of fatigue and f/u chest XR still unremarkable will move forward with Chest CT without contrast at this time. Order placed. Once schedule will notify of APT date and time. See Referral order comments. ER precautions advised. Patient agrees with plan and verbalized understanding. 4. C ough see above. Portions of this encounter were generated with voice recognition software. T here may be typographical and/or grammatical inaccuracies in business process manager. Sarahy Bonilla, CELL BIOLOGY SCIENTIST-C/AMNP CPT, [address] [place], 2- IN BN Surgeon [place] Extracted from:Title: Near Syncope/Fatigue Author: SARAHY BONILLA NP Date: 07/03/24 1. N ear syncope Reports that he has not had any LOC, but any time he exerts himself too much physically he gets really tired. He was not working out prior to coming to [facility] [place] and we did discuss that if he is out of shape and then coming here with the physical exertion demands along with the heat this is going to cause him to fatigue easily. Discussed weight loss and how this can be beneficial, but also time to get his body into better shape. He has been a heat causality before so this is going to increase his change of having another one. Had PFT testing completed and results came back normal. Discussed that this most likely is not cardiac in nature but would be best to get a cardiac stress test to ensure this is not contributing. Will also repeat labs today as well for review. Consult submitted- Will reach out to Santosh Dez to assist with scheduling assistance. 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 Reports tingling to fingers when this occurs and feels SHOB. Trainee has no previous cardiac history, normal cardiopulmonary exam. PT hx of rhabdo and heat exhaustion end of April as well as pneumonia/covid mid May. He continued with SHOB with exertion and chest XR was completed with no findings, PFT was completed with normal findings as well. He reports he thought it was SHOB but he feels it is more the exhaustion and fatigue causing him to want to pass out. Would like to get cardiac stress test to rule out any cardiovascular involvement. EKG completed 06/30/24 showing NSR and no concerns. Please complete Cardiac Stress test. Er precautions advised. Follow up in one week if not heard about GXT APT. Patient's medications reviewed for polypharmacy, drug interactions, and drug allergies and are reconciliated at this time. Patient implied understanding of provider's instructions and agrees to comply with treatment plan. Patient agrees with plan and verbalized understanding. Ordered: CBC w/ Diff Comprehensive Metabolic Panel Creatine Kinase Urinalysis with Microscopic and Culture if Indicated 2. F atigue see above. Orders: *Differential Automated *Glomerular Filtration Rate, Estimated Portions of this encounter were generated with voice recognition software. T here may be typographical and/or grammatical inaccuracies in business process manager. Sarahy Bonilla, CELL BIOLOGY SCIENTIST-C/AMNP CPT, [address], 2-47 IN BN Surgeon [place] Extracted from:Title: Follow up Near syncope-[facility] Author: SUZETTE JENNINGS PA Date: 06/30/24 1. N ear syncope VS stable. Neuro intact. Lung exam clear. No evidence of heat exhaustion/rhabdomyolysis. EKG pending official read by Dr. Ekta bragg nd CXR unremarkable. Will place e profile today for no physical training, 3 copies given to . PFT's results reviewed today; normal spirometry. Will consider further cardiac work up. Meds reconciled. Stay hydrated. ER precautions given. RTC/BN aid station Wednesday. SM verbalizes understanding of these specific instructions. 2. E ncounter for follow-up examination after completed treatment for conditions other than malignant neoplasm Repeat UA with resolved proteinuria. Results reviewed with and all questions have been answered. SM verbalizes understanding. Suz[facility] Purvis [facility] [place] Extracted from:Title: [facility] TRIAGE NOTE #1 Author: JEREL MIRANDA Date: 05/22/24 This appointment is not deployment related. SM is Active, a S michel 24 - year-old male with?0 c hildren. 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 SM TIS is?2 weeks. 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 Suicidal Thoughts Patient developed more complaints about his mental health each day during his visit. What started as depression and anxiety culminated in thoughts of wanting to harm himseld by day of discharge. Psychiatry evaluated patient determined him not to be safety risk to himself or others at this time, and safe for outpatient f/u at [facility] Cam morning at 8:30AM. He has no mental health history. 2. H eat I aung Brar et criteria for heat illness by e levated core temperature to 102.5F after ice sheets, normal mental status w/o LOC, and evidence of end-organ effects to liver (modest elevations in bili and LFTs). Lactic acidosis was present at time of admission also that shortly resolved after fluids.?Attributable in part to his COVID+ status, reported dehydration, and lack of AC in [place]. Patient responded well to IVF and by day 2 was transitioned to PO intake. He d isplayed nearly 4L of urine output his second day, and continued to make large amounts of urine on day of discharge. His liver enzymes remained mildly elevated but stable, never displaying any abnormalities in coags. He i s safe f or discharge with outpatient f/u at [facility] for repeat labs 3. R habdomyolysis C K 16,823 on presentation with myalgias in upper and lower extremities. No KRIS at time of admission. N o signs of compartment syndrome. H is CK remained elevated his second day but was downtrending x 3 in a row on q6h labs by time of discharge. Safe for dc with close outpatient f/u at [facility] 4. U pper respiratory infection caused by COVID-19 Patient's 1 week respiratory symptoms, were attributed to COVID-19 this stay. Prior to differentiating his illness he received 1 dose of Rocephin. H e was negative for flu, h ad an X R without focal or diffuse consolidations, clear lungs on exam, and d id not develop a significant leukocytosis this stay. He required no supplemental oxygen either. Patient is safe for discharge with 5 days of quarters and an additional 5 days of wearing a mask. -Tessalon Perles -Ibuprofen 5. Dental caries Patient complained of frontal maxillary tooth pain this stay. Noted to have cavities. Recommend f/u with dentist outpatient 6.External Hemorrhoid Patient symptomatic for hemorrhoids this stay. A 1cm external hemorrhoid was noted on physical exam. He was started on Miralax BID and experienced relief with this treatment. On day of discharge endorsed having painless BM. -Miralax BID Plan of care was discussed with and approved by attending physician, Dr. Giancarlo Reardon MD CPT, Family Medicine PGY-2 I attest to the accuracy of this note as to history, physical examination, and medical decision-making with any exceptions or corrections noted. I independently performed or re-performed the physical examination on the date of the encounter. Mary Anthony MD CPT, , [facility] Physician Scribe, PGY-3 [facility] Addendum by JUAN J MONDRAGON DO on May 20, 2024 13:49:02 EDT I have reviewed the above note, performed an exam myself on the patient above, discussed plan of care with the inpatient team and the house staff and agree with the note as written above with the following addition: patient was awake alert and denied SI/SH at time of discharge and has outpatient follow-up scheduled to meet with behavioral health on Wednesday. Profile placed for heat injury and to follow-up with [facility]. ---- Signed/written by: Juan J Mondragon DO, PRAFUL YANG , [facility] Primary Care Sports Medicine [place] Extracted from:Title: Education Note Author: JUAN MIGUEL KOENIG Date: 03/14/24 Extracted from:Title: Education Note Author: JUAN MIGUEL KOENIG Date: 02/25/24 Diagnostic Tests PendingDNA Repository Sample DVRDNA [id number] 05/10/24 Future Scheduled TestsLaboratoryProlactin Level 11/23/24Hemoglobin A1c 11/23/24Comprehensive Metabolic Panel 11/23/24 04/10/2025 Unknown Organization Functional Status Combined list of recent functional and cognitive assessments recorded at [facility] Functional [place] Measurement (FIM) Scale: 1 = Total Assistance (Subject = 0% +), 2 = Maximal Assistance (Subject = 25% +), 3 = Moderate Assistance (Subject = 50% +), 4 = Minimal Assistance (Subject = 75% +), 5 = Supervision, 6 = Modified [place] (Device), 7 = Complete [place] (Timely, Safely). Assessment Date/Time Source Assessment Type Assessment Skill Assessment Score Assessment Details FUNCTIONAL 12/04/24P rofessional Skilled Services Nursing, Social Work 12/01/24Home Dietary Supplements Captured No 11/06/24Lives In [facility] 05/20/24Current Home Treatments None 05/20/24Lunch Percent 76-100% 05/20/24Breakfast Percent 76-100% 05/20/24ADLs Independent Medication Administration Assistance Independent (2) Activity Status ADL In bed Sensory Compensatory Devices Glasses Patient Position Head of bed elevated Tolerance of Position Tolerates well Diet Type Regular 05/19/24Dinner Percent 51-75% 05/19/24Personal Care Provided Linen change, Shower 05/18/24Positioning /Pressure Reducing Devices Pillow Ambulation Patient Effort Good Ambulation Minutes 0 Tolerance of Mobilization Tolerates well
--- OUTSIDE RECORDS SUMMARY | 2025-04-10 07:15 | XMS_ITS | Clinical Summary ---
Author Organization [employer] [facility] Address [id number] [address] [place] [address] Care Team Providers Care Permit Coordinator Name Role Phone No Pcp, No Pcp Primary Care Provider Unavailabl e Allergies No known active allergies Medications acetaminophen (TYLENOL EXTRA STRENGTH) 500 mg tablet Take 2 tablets (1,000 mg total) by mouth every 6 (six) hours as needed for pain. 30 tablet 2 Active Additional Information Patient not taking.Reported on 03/16/2024 ibuprofen (MOTRIN) 800 mg tablet Take 1 tablet (800 mg total) by mouth every 6 (six) hours as needed for pain. 60 tablet 3 Active Additional Information Patient not taking.Reported on 03/16/2024 Social History Tobacco Use Types Packs/Day Years Used Date Smoking Tobacco: Never Smokeless Tobacco: Never Tobacco Cessation:Counseling Given: Not Answered Alcohol Use Standard Drinks/Week Comments Never 0 (1 standard drink = 0.6 oz pur e alcohol) Childcare Answer Date Recorded Childcare Unknown 03/07/2019 Employment Answer Date Recorded Employment Unknown 03/07/2019 Hunger Screening Answer Date Recorded Within the past 12 months we worried whether our food would run out before we got money to buy more. Never True 03/16/2024 Within the past 12 months th e food we bought just didn't last and we didn't have money to get more. Never True 03/16/2024 Sex and Gender Information Value Date Recorded Sex Assigned at Not on file Legal Sex Male 6:08 PM EDT Gender Identity Not on file Sexual Orientation Not on file Last Filed Vital Signs Vital Sign Reading Time Taken Comments Blood Pressure 111/64 03/16/2024 6:15 PM EDT Pulse 87 03/16/2024 4:27 PM EDT Temperature 36.4 C (97.6 F) 03/16/2024 4:27 PM EDT Respiratory Rate 16 03/16/2024 4:27 PM EDT Oxygen Saturation 98% 03/16/2024 6:06 PM EDT Inhaled Oxygen Concentration - - Weight 105.2 kg (232 lb) 03/16/2024 4:27 PM EDT Height 180.3 cm (5' 11 ) 03/16/2024 4:27 PM EDT Body Mass Index 32.36 03/16/2024 4:27 PM EDT Plan of Treatment Health Maintenance Due Date Last Done Comments Depression Screening 2013 DTaP,Tdap and Td Vaccines (6 - Td or Tdap) 04/07/2022 04/07/2012, 01/26/2006, 2001, Additional history exists COVID-19 Vaccine (2023-2 5 season) 2024 03/19/2021 Adult BMI Screening 03/16/2025 03/16/2024 Tobacco Screening 03/16/2025 03/16/2024 Influenza Vaccine 05/28/2025 Medical Devices Not on file Insurance [employer] [facility] [place] [id number] Care Teams Permit Coordinator Relationship Specialty Start Date End Date No Pcp, [place] [phone] PCP - General Family Medicine 05/08/23
--- OUTSIDE RECORDS SUMMARY | 2025-04-10 07:15 | XMS_ITS | Clinical Summary ---
Author Organization [facility] Healthcare Address [address] [place] [address] Care Team Providers Care [employer] Person Name Role Phone Ana Maria Melgar MD Primary Care Provider [phone] Social History Tobacco Use Types Packs/Day Years Used Date Smoking Tobacco: Never Assessed Sex and Gender Information Value Date Recorded Sex Assigned at Not on file Legal Sex Male 6:33 PM EDT Gender Identity Not on file Sexual Orientation Not on file Last Filed Vital Signs Vital Sign Reading Time Taken Comments Blood Pressure 104/76 02/12/2020 12:00 PM EDT Pulse - - Temperature - - Respiratory Rate - - Oxygen Saturation - - Inhaled Oxygen Concentration - - Weight 93 kg (205 lb) 03/11/2020 12:00 PM EDT Height 180.3 cm (5' 11 ) 04/12/2020 12:00 PM EDT Body Mass Index 28.59 03/11/2020 12:00 PM EDT Plan of Treatment Health Maintenance Due Date Last Done Comments Influenza Vaccine (#1) 2025 12/26/2019 Care Teams [employer] Person Relationship Specialty Start Date End Date Ana Maria Melgar MD PCP - General Family Medicine 02/02/23
--- OUTSIDE RECORDS SUMMARY | 2025-04-10 07:15 | XMS_ITS | Patient Health Record ---
Author Organization [facility] Address [address] [address] Care Team Providers Care Merchandise Shopper Name Role Phone Kevon CORONA, Magali Primary Care Provider Unav ailable Reason For Referral No Information Social History Social History Tobacco Use: Social Info Question Answer Notes Tobacco Use/Smoking How long has it been since you last smoked? > 10 years Plan Of Treatment No Information Insurance Providers Payer Name Payer Address Payer Phone Subscriber Number Group Number Insured Name Patient Relationship to Insured Coverage Start Date Coverage End Date [address] [place] [phone] [id number] SHIRLEY BUENO Self - patient is the insured
--- OUTSIDE RECORDS SUMMARY | 2025-04-10 07:15 | XMS_ITS | Clinical Summary ---
Author Organization [facility] Address [address] [place] [address] Care Team Providers Care Governor Assembler Name Role Phone Physician, None DO Primary Care Provider Unavail able Allergies Active Allergy Reactions Criticality Noted Date Comments [place] Pollen Asthma/Shortness of Breath High 10/02/19 25 Medications acetaminophen (TYLENOL) 500 mg tablet Take 1,000 mg by mouth every 8 hours as needed (Headache). Active FLUoxetine (PROZAC) 20 MG capsuleIndicati ons:Suicidal behavior without attempted self-injury Take 1 capsule by mouth daily. 30 capsule 10/03/2024 Active hydrOXYzine (ATARAX) 25 mg tabletIndicatio ns:Suicidal behavior without attempted self-injury Take 1 tablet by mouth 2 times daily as needed for Anxiety. 60 tablet 10/03/2024 Active Social History Tobacco Use Types Packs/Day Years Used Date Smoking Tobacco: Never Assessed [facility] Utilities Answer Date Recorded In the past 12 months has [facility] [employer], gas, oil, or water [employer] threatened to shut off services in your home? No 09/30/2024 Humiliation, Afraid, Rape, and Kick questionnair e Answer Date Recorded Within the last year, have y ou been afraid of your partner or ex-partner? No 09/29/2024 Within the last year, have y ou been humiliated or emotionally abused in other ways by your partner or ex-partner? No Within the last year, have y ou been kicked, hit, slapped, or otherwise physically hurt by your partner or ex-partner? No 09/29/2024 Within the last year, have y ou been raped or forced to have any kind of sexual activity by your partner or ex-partner? No 09/29/2024 AUDIT-C Answer Date Recorded Q1: How often do you have a drink containing alcohol? Never 09/30/2024 Q2: How many drinks containi ng alcohol do you have on a typical day when you are drinking? Patient does not drink Q3: How often do you have si x or more drinks on one occasion? Never 09/30/2024 Overall Financial Resource Strain (CARDIA) Answe r Date Recorded How hard is it for you to pa y for the very basics like food, housing, medical care, and heating? Not hard at all 09/30/2024 Hunger Vital Sign Answer Date Recorded Within the past 12 months, y ou worried that your food would run out before you got the money to buy more. Never true 09/30/19 25 Within the past 12 months, t he food you bought just didn't last and you didn't have money to get more. Never true 09/30/2024 Housing Stability Vital Sign Answer Cirilo e Recorded In the last 12 months, was t here a time when you were not able to pay the mortgage or rent on time? No 09/30/2024 Number of Times Moved in the Last Year Not on fi le 09/30/2024 At any time in the past 12 m [facility], were you homeless or living in a snf (including now)? No 09/30/2024 Sex and Gender Information Value Date Recorded Sex Assigned at Male 09/30/2024 2:12 PM EST Legal Sex Male 6:53 AM EST Gender Identity Male 09/30/2024 2:12 PM EST Sexual Orientation Straight 09/30/2024 2: 12 PM EST Last Filed Vital Signs Vital Sign Reading Time Taken Comments Blood Pressure 99/57 10/03/2024 11:17 AM EST Pulse 67 10/03/2024 11:17 AM EST Temperature 36.8 C (98.2 F) 10/03/2024 11:17 AM EST Respiratory Rate 16 10/03/2024 11:17 AM EST Oxygen Saturation 98% 10/03/2024 11:17 AM EST Inhaled Oxygen Concentration - - Weight 95.3 kg (210 lb) 09/29/2024 7:02 AM EST Height 180.3 cm (5' 11 ) 09/29/2024 7:02 AM EST Body Mass Index 29.29 09/29/2024 7:02 AM EST Plan of Treatment Health Maintenance Due Date Last Done Comments Hepatitis C Antibody Screening 2001 HIV SCREENING 01/19/2016 HPV Vaccine (1 - Male 3-dose series) 01/19/2016 DTaP/Tdap/Td Vaccine (1 - Tdap) 01/19/2020 Hepatitis B Vaccine (1 of 3 - 19+ 3-dose series) 01/18 Health Maintenance Exam (Adult) 2023 COVID-19 Vaccine (1 - season) 2024 Flu Vaccine (#1) 04/27/2025 Insurance [facility] Care Teams Governor Assembler Relationship Specialty Start Date End Date Physician, None, DO PCP - General 09/29/24
== END 2025-04-10 08:16 | disposition home or self-care (01) ==
PROVIDERS: Emergency Provider Emergency Medicine; PCP Family Medicine
DX: S63.616A Unspecified sprain of right little finger, initial encounter (principal); X50.1XXA Overexertion from prolonged static or awkward postures, initial encounter
CPT/HCPCS: 73130; 99283